=== PATIENT | female | born 1945 | race Caucasian/White ===

== ENCOUNTER 2017-04-13 11:35 | Inpatient (IN) | payer OTHER ==
[~2017-04-13] VITALS: Ht 157.5 cm; Wt 50.0 kg
--- NOTE | 2017-04-13 12:00 | ERD ---
ER Documentation Chief Complaint Chief Complaint BIB FOR EVAL OF LOW HG. HPI This is a 71-year-old female with a past medical history of chronic respiratory failure status post trach and PEG, known risk for aspiration pneumonia, paroxysmal atrial fibrillation who is presenting with concerns of anemia. The patient reportedly had blood work drawn this morning and had a hemoglobin of 6.6. The patient had no leukocytosis. The patient's platelet count was mildly elevated at 473. The patient's BNP did not show any emergent abnormalities. The patient does have a metabolic alkalosis that is likely associated with respiratory acidosis from her chronic respiratory failure. The patient did have blood cultures sent recently that showed no growth over the last several days. The patient does have a recent diagnosis of a UTI with a urinalysis from April 11 that showed trace leukocyte esterase, 11-20 WBCs, though there are no nitrites or bacteria present. Urine culture is currently in progress. ROS All systems reviewed and are negative except as per history of present illness. Medications Home Meds Reported Medications Ipratropium-Albuterol (Ipratropium-Albuterol) 0.5-3 Mg/3 Ml Ampul.neb, 3 ML INHALATION Q6 Y for SHORTNESS OF BREATH, #30 VIAL 04/13/17 Lactobacillus Acidophilus* (Lactinex*) 1 Tab Chew, 1 TAB GTB TID, TAB 04/13/17 Levothyroxine Sodium* (Levoxyl*) 100 Mcg Tablet, 100 MCG GTB BEFORE BREAKFAST, # 30 TAB 04/13/17 Losartan Potassium* (Losartan Potassium*) 50 Mg Tablet, 50 MG GTB DAILY, TAB HOLD IF SBP < 110 OR HR < 60 04/13/17 Multivitamins* (Theragran*) 1 Tab Tab, 1 TAB GTB DAILY, TAB 04/13/17 Pantoprazole* (Protonix*) 40 Mg Tablet.dr, 40 MG GTB BID, TAB 04/13/17 Quetiapine Fumarate* (Quetiapine Fumarate*) 25 Mg Tablet, 25 MG GTB HS, TAB 04/13/17 Sennosides* (Senna Lax*) 8.6 Mg Tablet, 2 TAB GTB QHS, TAB 04/13/17 Ondansetron (Zofran Odt) 4 Mg Tab.rapdis, 4 MG PO Q6 Y for NAUSEA AND/OR VOMITING 04/13/17 Furosemide* (Lasix* Liq) 40 Mg/4 Ml Solution, 20 MG IV* DAILY, #60 ML HOLD IF SBP<110 OR HR <60 USE WHILE ON IV ATB THEN CHANGE TO 40MG VIA G-TUBE 04/13/17 Sodium Phosphate,Bacon-Dibasic (Enema Ready To Use) 133 Ml Enema, 133 ML RC EVERY 72 HOURS Y for CONSTIPATION, ENEMA 04/13/17 Ferrous Sulfate (Ferrous Sulfate) 220 Mg/5 Ml Solution, 220 MG PEGTUBE BID 04/13/17 Bisacodyl (Dulcolax) 10 Mg Supp.rect, 10 MG RC EVERY 48 HOURS Y for CONSTIPATION , SUPP.RECT 04/13/17 Carvedilol* (Carvedilol*) 6.25 Mg Tablet, 6.25 MG GTB BID, #60 TAB HOLD FOR SBP <110 OR HR <60 04/13/17 Atorvastatin* (Atorvastatin*) 40 Mg Tablet, 40 MG GTB QHS, #30 TAB 04/13/17 Albuterol Sulfate* (Albuterol Sulfate* Neb) 0.083%-3 Ml Neb, 1.25 MG NEB Q6 Y for WHEEZING AND SOB, #30 VIAL VIA TRACH 04/13/17 Alprazolam* (Alprazolam*) 0.5 Mg Tablet, 0.5 MG GTB Q8H Y for ANXIETY, TAB 04/13/17 Amiodarone Hcl* (Amiodarone Hcl*) 200 Mg Tablet, 200 MG GTB DAILY, #30 TAB 04/13/17 Aspirin (Low Dose Aspirin) 81 Mg Tablet.dr, 81 MG GTB DAILY, #30 TAB 04/13/17 Allergies Allergies: Coded Allergies: No Known Allergy (Unverified , 04/13/17) PMhx/Soc History of Surgery: Yes (Trach and PEG, hiatal hernia surgery) Anesthesia Reaction: No Hx Neurological Disorder: No Hx Respiratory Disorders: Yes (Chronic hypoxic respiratory failure) Hx Cardiac Disorders: Yes (Paroxysmal atrial fibrillation) Hx Psychiatric Problems: Yes (Delirium) Hx Miscellaneous Medical Probl: No Hx Alcohol Use: No Hx Substance Use: No Hx Tobacco Use: No FmHx Family History: No coronary disease, No diabetes Physical Exam Vitals Vital Signs Date Time Temp Pulse Resp B/P Pulse Ox O2 Delivery O2 Flow Rate FiO2 04/13/17 14:14 99 3.0 04/13/17 13:53 75 20 99 T Tube 3.0 04/13/17 11:48 98.1 84 16 169/98 100 Physical Exam Const: No apparent distress, well-developed, well-nourished Head: Normocephalic, Atraumatic Eyes: Normal Conjunctiva. Extraocular movements intact. Pupils equal, round and reactive to light ENT: Normal External Ears, Nose and Mouth. Neck: Full range of motion. No meningismus. Trach placed without erythema or induration or purulence or bleeding around the trach site. Resp: Diffuse wheezes. No rales or rhonchi Cardio: Regular rate and rhythm. No murmurs, rubs or gallops Abd: Soft, non tender, non distended. Normal bowel sounds. PEG tube placed without erythema or induration or fluctuance or purulence around the site Skin: No petechiae or rashes Back: No midline tenderness. No CVA tenderness Ext: No cyanosis, or edema. Mild pallor Neur: Awake and alert. Cranial nerves intact. No facial droop. Normal strength, sensation and coordination. Psych: Normal Mood and Affect Result Diagram: 04/13/17 1230 04/13/17 1230 Results 24 hrs Laboratory Tests Test 04/13/17 12:30 White Blood Count 14.610^3/ul Red Blood Count 2.8010^6/ul Hemoglobin 7.9g/dl Hematocrit 26.2% Mean Corpuscular Volume 93.6fl Mean Corpuscular Hemoglobin 28.2pg Mean Corpuscular Hemoglobin Concent 30.2g/dl Red Cell Distribution Width 17.1% Platelet Count 75039^3/UL Mean Platelet Volume 10.2fl Neutrophils % 83.0% Lymphocytes % 5.2% Monocytes % 9.5% Eosinophils % 1.2% Basophils % 0.1% Nucleated Red Blood Cells % 0.0/100WBC Neutrophils # 12.110^3/ul Lymphocytes # 0.810^3/ul Monocytes # 1.410^3/ul Eosinophils # 0.210^3/ul Basophils # 0.010^3/ul Nucleated Red Blood Cells # 0.010^3/ul Sodium Level 142mmol/L Potassium Level 4.8mmol/L Chloride Level 99mmol/L Carbon Dioxide Level 36mmol/L Anion Gap 12 Blood Urea Nitrogen 22mg/dl Creatinine 0.72mg/dl Glucose Level 105mg/dl Calcium Level 8.8mg/dl Total Bilirubin 0.3mg/dl Direct Bilirubin 0.00mg/dl Indirect Bilirubin 0.3mg/dl Aspartate Amino Transf (AST/SGOT) 24IU/L Alanine Aminotransferase (ALT/SGPT) 40IU/L Alkaline Phosphatase 134IU/L Total Protein 6.9g/dl Albumin 3.2g/dl Globulin 3.70g/dl Albumin/Globulin Ratio 0.86 Current Medications Medications (Trade) Dose Ordered Sig/Wily Route PRN Reason Start Time Stop Time Status Last Admin Dose Admin Ondansetron HCl (Zofran Inj) 4 mg ER BRIDGE PRN IV NAUSEA AND/OR VOMITING 04/13/17 13:30 04/13/17 13:30 DC Acetaminophen (Tylenol Tab) 650 mg ER BRIDGE PRN PO MILD PAIN/FEVER 04/13/17 13:30 04/13/17 13:30 DC Albuterol (Proventil 0.083% (Neb)) 7.5 mg ONCE STAT INH 04/13/17 13:33 04/13/17 13:35 DC 04/13/17 13:46 Ipratropium Success (Atrovent 0.02% (Neb)) 1.5 mg ONCE STAT INH 04/13/17 13:33 04/13/17 13:35 DC 04/13/17 13:46 Methylprednisolone Sodium Succinate 125 mg 125 mg ONCE STAT IV 04/13/17 13:33 04/13/17 13:35 DC 04/13/17 14:32 Azithromycin 250 ml @ 250 mls/hr ONCE ONCE IVPB 04/13/17 15:00 04/13/17 15:59 DC 04/13/17 15:02 Ampicillin Sodium/ Sulbactam Sodium (Unasyn 3gm/NS (Pmx)) 100 ml @ 100 mls/hr ONCE ONCE IVPB 04/13/17 15:00 04/13/17 15:59 DC Ondansetron HCl (Zofran Inj) 4 mg ER BRIDGE PRN IV NAUSEA AND/OR VOMITING 04/13/17 15:00 04/14/17 14:59 Acetaminophen (Tylenol Tab) 650 mg ER BRIDGE PRN PO MILD PAIN/FEVER 04/13/17 15:00 04/13/17 15:29 DC Alprazolam (Xanax) 0.5 mg Q8H PRN GTB ANXIETY 04/13/17 15:30 Amiodarone HCl (Cordarone) 200 mg DAILY GTB 04/14/17 09:00 Aspirin (Halfprin) 81 mg DAILY PO 04/14/17 09:00 Atorvastatin Calcium (Lipitor) 40 mg QHS GTB 04/13/17 21:00 Carvedilol (Coreg) 6.25 mg BID GTB 04/13/17 21:00 Furosemide (Lasix) 20 mg DAILY GTB 04/14/17 09:00 Albuterol/ Ipratropium (Duoneb) 3 ml Q4H WHILE AWAKE INH 04/13/17 17:00 Levothyroxine Sodium (Synthroid) 100 mcg BEFORE BREAKFAST GTB 04/14/17 07:00 Losartan Potassium (Cozaar) 50 mg DAILY GTB 04/14/17 09:00 Multivitamins Therapeutic (Theragran) 1 tab DAILY GTB 04/14/17 09:00 Pantoprazole (Protonix Tab) 40 mg 06,18 PO 04/13/17 18:00 Quetiapine Fumarate (Seroquel) 25 mg HS GTB 04/13/17 21:00 Ferrous Sulfate (Feosol Liquid Cup) 220 mg BID GTB 04/13/17 21:00 Lactobacillus Acidophilus/ Rhamnosus (Culturelle) 1 cap TID PO 04/13/17 21:00 Albuterol (Proventil 0.083% (Neb)) 2.5 mg Q4H RESP THERAPY PRN HHN SHORTNESS OF BREATH 04/13/17 15:30 Ondansetron HCl (Zofran Inj) 4 mg Q4H PRN IV NAUSEA AND/OR VOMITING 04/13/17 15:30 IV Flush (NS 3 ml) 3 ml PER PROTOCOL IV 04/13/17 15:30 Acetaminophen 650 mg 650 mg Q6H PRN PO PAIN LEVEL 1-3 OR FEVER 04/13/17 15:30 Ampicillin Sodium/ Sulbactam Sodium 50 ml @ 100 mls/hr Q6 IVPB 04/13/17 18:00 Azithromycin (Zithromax 500mg/ NS (Pmx)) 250 ml @ 250 mls/hr Q24H IVPB 04/14/17 15:30 Methylprednisolone Sodium Succinate 40 mg 40 mg Q8 IV 04/13/17 22:00 Sodium Chloride 1,000 ml @ 75 mls/hr [id number] IV 04/13/17 16:00 04/14/17 16:00 Sodium Chloride (NS) 100 ml @ ud STK-MED ONCE .ROUTE 04/13/17 15:57 04/13/17 15:58 DC Iodixanol (Visipaque Locm) 100 ml STK-MED ONCE .ROUTE 04/13/17 15:57 04/13/17 15:58 DC Procedures/MDM MDM The patient's presentation warrants further investigation. The patient has findings it is consistent with a COPD exacerbation. It is unclear if the patient had this issue prior to her complicated surgical history that ultimately led to a tracheostomy. However, am concerned about reactive airway disease at this time with the possibility of an infectious etiology given her significant congestion. This will be further evaluated. Type and screen and basic blood work will also be sent off. There are concerns of anemia especially given the lab results at the nursing facility. I will not transfuse immediately and instead await our results. LABS The patient's blood work was obtained and reviewed. The patient's CBC shows leukocytosis and left shift. The patient is afebrile, but given the possibility of pneumonia, I am concerned of a infection.. The patient is anemic today, but it is at 7.9. I do not intend to transfuse at this time. The patient is fecal occult negative. This may be trended in the hospital. The patient's platelet count is elevated, which is likely reactive. The patient 's CMP shows no signs of metabolic or electrolyte emergencies. The patient does have an elevated CO2 that is indicative of metabolic alkalosis secondary to her chronic poor respiratory status. The patient has unremarkable renal and hepatic function testing. IMAGING CXR 1. Cardiomegaly with bilateral lower lung opacities, representing atelectasis versus pneumonia. Small bilateral pleural effusions. 2. Tracheostomy tube. 3. Right-sided PICC in appropriate position with tip at the cavoatrial junction. 4. Hiatal hernia. Electronically viewed and signed by Karlo Obando Physician on 04/13/2017 14:42 TREATMENT/DISPOSITION The patient requires admission for possible COPD exacerbation. I do see concerning findings for pneumonia as well. The patient be started on Unasyn given her history of aspiration as well as azithromycin. The patient was also started on nebulized albuterol and ipratropium. She is given Solu-Medrol as well. The patient will require frequent suctioning. The respiratory therapist was made aware. At this time, I feel that the patient requires admission for further evaluation and management. The patient will be admitted to panel in accordance with the patient's insurance. The patient was accepted by Dr. Vaca at 2:37 PM on April 13, 2017. The patient's blood pressure was elevated at greater than 120/80 while in the emergency department. The patient was otherwise stable with no evidence of hypertensive urgency or emergency or end organ damage. The patient does not require admission for blood pressure control. I have discussed with the patient the risks of hypertension. I have advised the patient to follow up with the primary care physician for outpatient monitoring and treatment for hypertension in 2-3 days. I have instructed the patient to return to the ER for any new or worsening symptoms including chest pain, shortness of breath, headache, blurred vision, confusion, nausea, vomiting or LOC. Disclaimer: Inadvertent spelling and grammatical errors are likely due to EHR/ dictation software use and do not reflect on the overall quality of patient care. Note that the electronic time recorded on this note does not necessarily reflect the actual time of the patient encounter. Departure Diagnosis: Primary Impression: Anemia Anemia type: unspecified type Qualified Code: D64.9 - Anemia, unspecified type Condition: DEANA Rosa MD Apr 13, 2017 12:00
[2017-04-13] MEDS ORDERED: AMIO200T2 GTB (12:15)
[2017-04-13] MEDS ORDERED: ASPI-664 GTB (12:15)
[2017-04-13] MEDS ORDERED: ALPR0.5T6 GTB (12:16)
[2017-04-13] MEDS ORDERED: ALBU2.5V3 NEB (12:17)
[2017-04-13] MEDS ORDERED: ATOR40TA68 GTB (12:18)
[2017-04-13] MEDS ORDERED: CARV6.2579 GTB (12:19)
[2017-04-13] MEDS ORDERED: BISA10SU55 RC (12:20)
[2017-04-13] MEDS ORDERED: NA P133E39 RC (12:21)
[2017-04-13] MEDS ORDERED: FERR220S2 PEGTUBE (12:21)
[2017-04-13] MEDS ORDERED: FURO40SO4 IV* (12:24)
[2017-04-13] MEDS ORDERED: ONDA4TAB11 PO (12:26)
[2017-04-13] MEDS ORDERED: SENN-53 GTB (12:27)
[2017-04-13] MEDS ORDERED: QUET25TA33 GTB (12:27)
[2017-04-13] MEDS ORDERED: PANT40TA3 GTB (12:28)
[2017-04-13] MEDS ORDERED: MULTI GTB (12:28)
[2017-04-13] MEDS ORDERED: LOSA50TA6 GTB (12:29)
[2017-04-13] MEDS ORDERED: LEVO100T82 GTB (12:29)
[2017-04-13] MEDS ORDERED: LACTINEX GTB (12:30)
[2017-04-13] MEDS ORDERED: IPRA3AMP INHALATION (12:34)
[2017-04-13 12:43] LABS: BASOPHILS % 0.1 % (0.0-2.0); EOSINOPHILS # 0.2 10^3/ul (0.0-0.5); EOSINOPHILS % 1.2 % (0.0-7.0); HEMATOCRIT 26.2 % (37.0-47.0); HEMOGLOBIN 7.9 g/dl (12.0-16.0); LYMPHOCYTES # 0.8 10^3/ul (0.8-2.9); LYMPHOCYTES % 5.2 % (15.0-51.0); MEAN CORPUSCULAR HEMOGLOBIN 28.2 pg (29.0-33.0); MEAN CORPUSCULAR HGB CONC 30.2 g/dl (32.0-37.0); MEAN CORPUSCULAR VOLUME 93.6 fl (82.0-101.0); MEAN PLATELET VOLUME 10.2 fl (7.4-10.4); MONOCYTE # 1.4 10^3/ul (0.3-0.9); MONOCYTES % 9.5 % (0.0-11.0); NEUTROPHIL # 12.1 10^3/ul (1.6-7.5); PLATELET COUNT 563 10^3/UL (140-415); RED CELL DISTRIBUTION WIDTH 17.1 % (11.5-14.5); WHITE BLOOD COUNT 14.6 10^3/ul (4.8-10.8)
[2017-04-13 13:00] LABS: ALBUMIN 3.2 g/dl (3.3-4.9); ALBUMIN/GLOBULIN RATIO 0.86; BILIRUBIN,INDIRECT 0.3 mg/dl (0-1.1); BILIRUBIN,TOTAL 0.3 mg/dl (0.2-1.3); CALCIUM 8.8 mg/dl (8.4-10.2); CREATININE 0.72 mg/dl (0.44-1.00); POTASSIUM 4.8 mmol/L (3.5-5.1); TOTAL PROTEIN 6.9 g/dl (6.1-8.1)
[2017-04-13] MEDS ORDERED: ACETAMINOPHEN 325 MG TAB PO PRN ×2 (13:30→15:00)
[2017-04-13] MEDS ORDERED: ONDANSETRON 4 MG INJ IV PRN ×3 (13:30→15:30)
[2017-04-13] MEDS ORDERED: IPRATROPIUM (NEB) 0.5 MG/2.5 ML AMP INH STA (13:33)
[2017-04-13] MEDS ORDERED: ALBUTEROL 0.083% (NEB) 2.5 MG/3 ML AMP INH STA (13:33)
[2017-04-13] MEDS ORDERED: METHYLPREDNISOLONE 125 MG INJ IV STA (13:33)
--- NOTE | 2017-04-13 14:42 | RADRPT ---
PROCEDURE: XR Chest. CLINICAL INDICATION: Wheezing, shortness of breath. TECHNIQUE: Single frontal view of the chest was obtained. COMPARISON: None FINDINGS: There is a tracheostomy tube. There is a right-sided PICC with tip at the cavoatrial junction. The cardiomediastinal silhouette demonstrates enlargement of the cardiac silhouette. There are bilateral lower lung opacities with the small bilateral pleural effusions. No definite pneumothorax. No acute osseous abnormality. There is a hiatal hernia. Surgical clips projecting over the right lat eral hemidiaphragm. IMPRESSION: 1. Cardiomegaly with bilateral lower lung opacities, representing atelectasis versus pneumonia. Smal l bilateral pleural effusions. 2. Tracheostomy tube. 3. Right-sided PICC in appropriate position with tip at the cavoatrial junction. 4. Hiatal hernia. RPTAT: [facility] Karlo Obando Physician Date Time Electronically viewed and signed by Karlo Obando Physician on 04/13/2017 14:42 PH/
[2017-04-13] MEDS ORDERED: AMPICILLIN/SULB 3 GM/NS (PMX) 100 ML IVPB ONE (15:00)
[2017-04-13] MEDS ORDERED: AZITHROMYCIN 500MG/NS (PMX) 250 ML IVPB ONE (15:00)
[2017-04-13] MEDS ORDERED: NACL 0.9% 3 ML SYG IV SCH (15:30)
--- NOTE | 2017-04-13 15:56 | HP ---
Date/Time of Note Date/Time of Note DATE: 04/13/17 TIME: 15:23 Assessment/Plan VTE Prophylaxis VTE Prophylaxis Intervention: SCD's Assessment/Plan Assessment/Plan 1. Acute respiratory distress secondary to pneumonia vs URI - Patient has been experiencing increase in sputum production over the past 2-3 days - CXR shows cardiomegaly with opacity at lung bases, atelectasis vs pneumonia - Will order CT scan of chest to further evaluate - Started on Unasyn and Azithromycin to treat for CAP vs aspiration pneumonia - Bronchodilators and IV steroids - frequent suctioning required as well - Pulmonology consultation placed 2. Leukocytosis secondary to #1 - antibiotics on board and will continue to monitor 3. Anemia secondary to chronic disease vs iron deficiency - will check iron studies - FOBT negative 4. Dehydration - patient appears slightly dehydrated and has elevated BUN - will gently hydrate for next 24 hours and reassess volume status 5 Hypertension - continue home medications 6. hypothyroidism - Continue on home levothyroxine 7. Chronic Trach/PEG - placed consult for evaluation for [facility] for trach capping trial once stable for discharge 8. UTI? - no urinary symptoms at this time - UA pending 9. Thrombocytosis - most likely reactive 10. Cardiomegaly on CXR - Will order ECHO to further assess 11. GI ppx - PPI 12. DVT - SCDs 13. Code Status - Full 14, Diet - cardiac 15. Disposition - Admit to telemetry HPI/ROS Admit Date/Time Admit Date/Time 04/13/17 Hx of Present Illness 71 yo F with PMH HTN, HLD, hypothyrodism, anemia, and chronic Trach/PEG for the past 6 months following complications after routine diaphragmatic hernia repair was sent after found to have a hgb of 6.6 this am, Patient lives at home with and history obtained from at bedside as well as patient. Patient has been experiencing cough with increase sputum production that has been blood tinged at times. Has associated wheezing as well but denies any fevers, chills, nausea, vomiting, or sick contact. Patient had labs performed this am and hgb was 6.6 which was why patient was initially sent to the ED. Repeat H/H in the ED resulted hgb of 7.8 and FOBT was negative. She does admit to experiencing fatigue but besides blood tinged sputum, no other episodes of nelson bleeding. Per , patient has anemia but unsure what her baseline is. Patient was noted to have recently been treated for UTI and patient denies any urinary symptoms at this time Per , 6 months ago patient went in for a routine surgery to repair a diaphragmatic hernia and due to chronic respiratory failure trach/peg placed. Patient was supposed to go to [facility] this week for trach cap trial. ROS Constitutional: fatigue, No chills, No diaphoresis, No febrile, No nausea Eyes: no complaints ENT: congestion Respiratory: cough, shortness of breath, sputum, wheezing Cardiovascular: No chest pain, No edema, No lightheadedness, No palpitations Gastrointestinal: diarrhea, No constipation, No nausea, No pain, No vomiting Genitourinary: No dysuria, No flank pain, No hematuria Musculoskeletal: no complaints Skin: No erythema, No pruritis, No rash Neurologic: no complaints Endocrine: no complaints Lymphatic: no complaints Psychological: nl mood/affect Immunologic: no complaints PMH/Family/Social Past Medical History Medical History: diabetes, hypertension, hypothyroid, other (anemia) Past Surgical History Past Surgical Hx: cholecystectomy, other (Trach, peg, diaphragmatic hernia repair) Family History Significant Family History: no pertinent family hx Social History Alcohol Use: none Smoking Status: Never smoker Drug Use: none Exam/Review of Systems Vital Signs Vitals Vital Signs Date Time Temp Pulse Resp B/P Pulse Ox O2 Delivery O2 Flow Rate FiO2 04/13/17 14:14 99 3.0 04/13/17 13:53 75 20 T Tube 04/13/17 11:48 98.1 169/98 Exam Constitutional: alert, distress, oriented Psych: nl mood/affect Head: atraumatic, normocephalic Eyes: EOMI, PERRL (respiratory ), nl sclera ENMT: mucosa pink and moist Neck: non-tender, supple Respiratory: crackles/rales, diminished breath sounds, No wheezing Cardiovascular: regular rate and rhythm, No edema, No murmurs/extra sounds Gastrointestinal: bowel sounds, nl liver, spleen, soft, No distended, No rebound or guarding, No tender Genitourinary - Female: No CVA tenderness Musculoskeletal: nl extremities to inspection Extremities: normal pulses, No cyanosis, No edema Neurological: PENSION AGENT II-XII intact, nl mental status, No focal weakness Skin: nl turgor, rash or lesions Lymph: nl lymph nodes Labs Result Diagram: 04/13/17 1230 04/13/17 1230 Medications Medications home medications reviewed Current Medications Azithromycin 250 ml @ 250 mls/hr ONCE ONCE IVPB ; Start 04/13/17 at 15:00; Stop 04/13/17 at 15:59 Ampicillin Sodium/ Sulbactam Sodium (Unasyn 3gm/NS (Pmx)) 100 ml @ 100 mls/hr ONCE ONCE IVPB ; Start 04/13/17 at 15:00; Stop 04/13/17 at 15:59 Procedures Procedures PROCEDURE: XR Chest. CLINICAL INDICATION: Wheezing, shortness of breath. TECHNIQUE: Single frontal view of the chest was obtained. COMPARISON: None FINDINGS: There is a tracheostomy tube. There is a right-sided PICC with tip at the cavoatrial junction. The cardiomediastinal silhouette demonstrates enlargement of the cardiac silhouette. There are bilateral lower lung opacities with the small bilateral pleural effusions. No definite pneumothorax. No acute osseous abnormality. There is a hiatal hernia. Surgical clips projecting over the right lateral hemidiaphragm. IMPRESSION: 1. Cardiomegaly with bilateral lower lung opacities, representing atelectasis versus pneumonia. Small bilateral pleural effusions. 2. Tracheostomy tube. 3. Right-sided PICC in appropriate position with tip at the cavoatrial junction. 4. Hiatal hernia. YAA WHITNEY MD Apr 13, 2017 15:38
[2017-04-13] MEDS ORDERED: IODIXANOL LOCM 100 ML BTL ONE (15:57)
[2017-04-13] MEDS ORDERED: SOD CHLORIDE 0.9% 100 ML ONE (15:57)
[2017-04-13 16:30] VITALS: TEMP 98.3
[2017-04-13] MEDS: ALBUTEROL/IPRATROPIUM (NEB) 3 ML AMP INH SCH ×2 (17:00→20:00)
[2017-04-13 17:04] LABS: IRON 27 ug/dl (35-150)
[2017-04-13 17:13] LABS: TOTAL IRON BINDING CAPACITY 192 ug/dl (241-421)
--- NOTE | 2017-04-13 17:14 | RADRPT ---
PROCEDURE: CT Chest with contrast. CLINICAL INDICATION: Abnormal chest x-ray. TECHNIQUE: CT scan of the chest with contrast was performed following the uncomplicated intravenou s administration of 100 cc of Visipaque 320. Coronal and sagittal reformatted images were obtained from the axial source images. Images were reviewed on a high-resolution PACS workstation. DICOM imag es are available. CTDIvol (mGy): 6.68; Total Exam DLP (mGy-cm): 208.61. One or more of the following dose reduction techniques were utilized: - Automated exposure control. - Adjustment of the mA and/or kV according to patient size. - Use of iterative reconstruction technique. COMPARISON: Chest x-ray 04/13/2017. FINDINGS: Lungs: Low lung volumes are observed. Scattered subsegmental consolidation is seen within the bilate ral lower lobes and is favorable for atelectasis. There is a small, mildly loculated, right pleural effusion. There is a trace left pleural effusion. A tracheostomy tube is in place within the airway. Mediastinum: Scattered small mediastinal lymph nodes are present. Cardiovascular: The heart is mildly enlarged. Trace pericardial fluid is present. A right upper extr emity PICC terminates at the SVC/right atrial junction. Lymph nodes: No lymphadenopathy. Musculoskeletal: Multilevel degenerative changes are seen throughout the thoracic spine. Upper abdomen: There is a large hiatal hernia containing a large portion of the stomach and a portio n of the distal transverse colon. Scattered small cysts are seen throughout the liver. Additional comments: Healing nondisplaced fractures of the left anterior second, fourth, 6 and seven th ribs are present. There is a nondisplaced fracture of the right anterolateral eighth rib. IMPRESSION: Low lung volumes with scattered subsegmental atelectasis throughout the lung bases. Small loculated right and trace left pleural effusions. Large hiatal hernia containing a large portion of the stomach and a portion of the distal transverse colon. Cardiomegaly. RPTAT: QQ .Mihaela Avila MD, Date Time Electronically viewed and signed by .iMhaela Avila MD, on 04/13/2017 17:14 .T/
[2017-04-13] MEDS: SOD CHLORIDE 0.9% 1,000 ML IV SCH (17:25)
[2017-04-13 17:33] VITALS: PULSE 79
[2017-04-13] MEDS: PANTOPRAZOLE (EC) 40 MG TAB PO SCH (17:39)
[2017-04-13] MEDS: AMPICILLIN/SULB 1.5GM/NS (PMX) 50 ML IVPB SCH (18:00)
[2017-04-13 18:45] VITALS: Ht 157.5 cm; Wt 50.0 kg
[2017-04-13 19:43] VITALS: BP 135/69; RESP 20
[2017-04-13 20:04] VITALS: PULSE 74
[2017-04-13] MEDS: FERROUS SULFATE 60 MG/ML 5ML CUP GTB SCH (20:14)
[2017-04-13] MEDS: ATORVASTATIN 40 MG TAB GTB SCH (20:15)
[2017-04-13] MEDS: METHYLPREDNISOLONE 40 MG INJ IV SCH (20:15)
[2017-04-13] MEDS: QUETIAPINE 25 MG TAB GTB SCH (20:15)
[2017-04-13] MEDS: LACTOBACILLUS RHAMNOSUS CAP PO SCH (22:36)
[2017-04-13 23:59] VITALS: BP 134/64; RESP 18
[2017-04-14] VITALS (11 sets, daily range): BP systolic 126–143; BP diastolic 61–83; PULSE 64–82; RESP 17–19
[2017-04-14] MEDS: PANTOPRAZOLE (EC) 40 MG TAB PO SCH (06:00)
[2017-04-14] MEDS: LEVOTHYROXINE 100 MCG TAB GTB SCH (06:56)
[2017-04-14] MEDS: AMPICILLIN/SULB 1.5GM/NS (PMX) 50 ML IVPB SCH ×3 (06:56→12:00)
[2017-04-14] MEDS: METHYLPREDNISOLONE 40 MG INJ IV SCH ×3 (06:56→23:00)
[2017-04-14 07:31] LABS: ABNORMAL IP MESSAGE 1; HEMATOCRIT 22.3 % (37.0-47.0); MEAN CORPUSCULAR HEMOGLOBIN 28.5 pg (29.0-33.0); MEAN CORPUSCULAR HGB CONC 30.9 g/dl (32.0-37.0); MEAN CORPUSCULAR VOLUME 92.1 fl (82.0-101.0); MEAN PLATELET VOLUME 10.7 fl (7.4-10.4); PLATELET COUNT 457 10^3/UL (140-415); RED BLOOD COUNT 2.42 10^6/ul (4.20-5.40); WHITE BLOOD COUNT 7.4 10^3/ul (4.8-10.8)
[2017-04-14 07:36] LABS: POSITIVE DIFF @See below
[2017-04-14 07:38] LABS: HEMOGLOBIN 6.9 g/dl (12.0-16.0)
[2017-04-14] MEDS: SOD CHLORIDE 0.9% 1,000 ML IV SCH (07:50)
[2017-04-14 07:52] LABS: ALBUMIN 2.4 g/dl (3.3-4.9); CALCIUM 8.4 mg/dl (8.4-10.2); CREATININE 0.65 mg/dl (0.44-1.00); PHOSPHORUS 3.5 mg/dl (2.5-4.9); POTASSIUM 4.2 mmol/L (3.5-5.1)
[2017-04-14] MEDS ORDERED: FUROSEMIDE 40 MG/4 ML CUP GTB SCH (09:00)
[2017-04-14] MEDS: ALBUTEROL/IPRATROPIUM (NEB) 3 ML AMP INH SCH ×4 (09:00→20:19)
[2017-04-14] MEDS: LOSARTAN 50 MG TAB GTB SCH (09:54)
[2017-04-14] MEDS: AMIODARONE 200 MG TAB GTB SCH (09:58)
[2017-04-14] MEDS: ASPIRIN (EC) 81 MG TAB PO SCH (10:00)
[2017-04-14 10:01] LABS: ANISOCYTOSIS 2+ (0-0); GIANT THROMBO% (M) 1 % (0-0); HYPOCHROMASIA 1+ (0-0); MICROCYTOSIS 1+ (0-0); MONOCYTES % (M) 3 % (0-11); PLATELET ESTIMATE INCREASED; POIKILOCYTOSIS 1+ (0-0); POLYCHROMASIA 2+ (0-0)
[2017-04-14] MEDS: MULTIVITAMINS THERAPEUTIC TAB GTB SCH (10:01)
[2017-04-14] MEDS: FERROUS SULFATE 60 MG/ML 5ML CUP GTB SCH ×2 (10:02→21:00)
[2017-04-14] MEDS: LACTOBACILLUS RHAMNOSUS CAP PO SCH ×3 (10:05→21:00)
--- NOTE | 2017-04-14 10:21 | CONS ---
Date/Time of Note Date/Time of Note DATE: 04/14/17 TIME: 10:21 Consultation Date/Type/Reason Admit Date/Time 04/13/17 Date of Consultation: Apr 14, 2017 Type of Consultation: Pulmonary Hx of Present Illness Consultation dictated #[id number]. Continue current treatment. Past Medical History Medical History: diabetes, hypertension, hypothyroid, other (anemia) Past Surgical History Past Surgical Hx: cholecystectomy, other (Trach, peg, diaphragmatic hernia repair) Social History Alcohol Use: none Smoking Status: Never smoker Drug Use: none Exam/Review of Systems Vital Signs Vitals Vital Signs Date Time Temp Pulse Resp B/P Pulse Ox O2 Delivery O2 Flow Rate FiO2 04/14/17 08:05 97.9 75 19 135/61 98 04/14/17 05:30 Aerosol 5.0 28 T Tube Intake and Output 04/13/17 04/13/17 04/14/17 15:00 23:00 07:00 Intake Total 100 ml 100 ml Balance 100 ml 100 ml Results Result Diagram: 04/14/17 0657 04/14/17 0657 Results 24 hrs Laboratory Tests Test 04/13/17 12:30 04/14/17 06:57 White Blood Count 14.6 H 7.4 # Red Blood Count 2.80 L 2.42 L Hemoglobin 7.9 L 6.9 *L Hematocrit 26.2 L 22.3 L Mean Corpuscular Volume 93.6 92.1 Mean Corpuscular Hemoglobin 28.2 L 28.5 L Mean Corpuscular Hemoglobin Concent 30.2 L 30.9 L Red Cell Distribution Width 17.1 H 17.0 H Platelet Count 563 H 457 H Mean Platelet Volume 10.2 10.7 H Neutrophils % 83.0 H Lymphocytes % 5.2 L Monocytes % 9.5 Eosinophils % 1.2 Basophils % 0.1 Nucleated Red Blood Cells % 0.0 0.0 Neutrophils # 12.1 H Lymphocytes # 0.8 Monocytes # 1.4 H Eosinophils # 0.2 Basophils # 0.0 Nucleated Red Blood Cells # 0.0 Sodium Level 142 141 Potassium Level 4.8 4.2 Chloride Level 99 103 Carbon Dioxide Level 36 H 33 H Anion Gap 12 9 Blood Urea Nitrogen 22 H 24 H Creatinine 0.72 0.65 Glucose Level 105 119 Calcium Level 8.8 8.4 Iron Level 27 L Total Iron Binding Capacity 192 L Percent Iron Saturation 14 L Total Bilirubin 0.3 Direct Bilirubin 0.00 Indirect Bilirubin 0.3 Aspartate Amino Transf (AST/SGOT) 24 Alanine Aminotransferase (ALT/SGPT) 40 Alkaline Phosphatase 134 H B-Type Natriuretic Peptide 23895 H Total Protein 6.9 Albumin 3.2 L 2.4 L Globulin 3.70 H Albumin/Globulin Ratio 0.86 Segmented Neutrophils % (Manual) 90 H Lymphocytes % (Manual) 7 L Monocytes % (Manual) 3 Absolute Lymphocytes (Manual) 0.5 L Absolute Monocytes (Manual) 0.2 L Platelet Estimate INCREASED Giant Platelets 1 H Polychromasia 2+ Hypochromasia 1+ Poikilocytosis 1+ Anisocytosis 2+ Microcytosis 1+ Phosphorus Level 3.5 Magnesium Level 2.0 Medications Medications Current Medications Alprazolam (Xanax) 0.5 mg Q8H PRN GTB ANXIETY; Start 04/13/17 at 15:30 Amiodarone HCl (Cordarone) 200 mg DAILY GTB Last administered on 04/14/17 09: 58; Admin Dose 200 MG; Start 04/14/17 at 09:00 Aspirin (Halfprin) 81 mg DAILY PO Last administered on 04/14/17 10:00; Admin Dose 81 MG; Start 04/14/17 at 09:00 Atorvastatin Calcium (Lipitor) 40 mg QHS GTB Last administered on 04/13/17 20: 15; Admin Dose 40 MG; Start 04/13/17 at 21:00 Carvedilol (Coreg) 6.25 mg BID GTB Last administered on 04/14/17 09:57; Admin Dose 6.25 MG; Start 04/13/17 at 21:00 Furosemide (Lasix) 20 mg DAILY GTB Last administered on 04/14/17 09:58; Admin Dose 20 MG; Start 04/14/17 at 09:00 Losartan Potassium (Cozaar) 50 mg DAILY GTB Last administered on 04/14/17 09: 54; Admin Dose 50 MG; Start 04/14/17 at 09:00 Multivitamins Therapeutic (Theragran) 1 tab DAILY GTB Last administered on 04/14 10:01; Admin Dose 1 TAB; Start 04/14/17 at 09:00 Pantoprazole (Protonix Tab) 40 mg 06,18 PO Last administered on 04/13/17 17:39 ; Admin Dose 40 MG; Start 04/13/17 at 18:00 Quetiapine Fumarate (Seroquel) 25 mg HS GTB Last administered on 04/13/17 20: 15; Admin Dose 25 MG; Start 04/13/17 at 21:00 Ferrous Sulfate (Feosol Liquid Cup) 220 mg BID GTB Last administered on 10:02; Admin Dose 220 MG; Start 04/13/17 at 21:00 Lactobacillus Acidophilus/ Rhamnosus (Culturelle) 1 cap TID PO Last administered on 04/14/17 10:05; Admin Dose 1 CAP; Start 04/13/17 at 21:00 Ondansetron HCl (Zofran Inj) 4 mg Q4H PRN IV NAUSEA AND/OR VOMITING; Start 04/13/17 at 15:30 Acetaminophen 650 mg 650 mg Q6H PRN PO PAIN LEVEL 1-3 OR FEVER; Start 04/13/17 at 15:30 Ampicillin Sodium/ Sulbactam Sodium 50 ml @ 100 mls/hr Q6 IVPB Last administered on 04/14/17 06:56; Admin Dose 100 MLS/HR; Start 04/13/17 at 18:00 Azithromycin (Zithromax 500mg/ NS (Pmx)) 250 ml @ 250 mls/hr Q24H IVPB ; Start 04/14/17 at 15:30 Methylprednisolone Sodium Succinate 40 mg 40 mg Q8 IV Last administered on 04/14 06:56; Admin Dose 40 MG; Start 04/13/17 at 22:00 Sodium Chloride (NS) 1,000 ml @ 75 mls/hr [id number] IV Last administered on 04/14 07:50; Admin Dose 75 MLS/HR; Start 04/13/17 at 16:00; Stop 04/14/17 at 16: 00 ALLISON DONOHUE Apr 14, 2017 10:21
[2017-04-14] MEDS: ALPRAZOLAM 0.5 MG TAB GTB PRN ×2 (11:15→15:57)
--- NOTE | 2017-04-14 12:31 | CONS ---
DATE OF ADMISSION: 04/13/2017 DATE OF CONSULTATION: 04/14/2017 PULMONARY CONSULTATION REFERRING PHYSICIAN: Hospitalist. REASON FOR REFERRAL: For evaluation of bilateral pneumonia. HISTORY OF PRESENT ILLNESS: Ms. Ochoa is a 71-year-old white lady who was admitted to the hospital yesterday with complaints of being short of breath for the last few days with production of sputum as well as mild hypoxemia. Upon evaluation, a chest x-ray was done which is showing bibasilar pneum onia. The patient also was found anemic with a hemoglobin of 6.6. CT scan chest also was done whic h is showing bibasilar infiltrative changes with the possibility of chronic component to it. By the time I saw the patient, the patient is feeling better. She is completely awake and alert. Accordi ng to her, shortness of breath is improving. Denies any fever, chills, chest pain, abdominal pain, nausea, vomiting. PAST MEDICAL HISTORY: 1. History of prior respiratory failure, status post tracheostomy and PEG tube placement. 2. History of anemia. 3. Diabetes. 4. Hypertension. 5. Hypothyroidism. 6. Status post cholecystectomy. 7. History of diaphragmatic hernia repair. CURRENT MEDICATIONS: 1. Unasyn 1.5 grams q.6 hours. 2. Zithromax 500 mg IV daily. 3. Acetaminophen on a p.r.n. basis 4. Albuterol on a p.r.n. basis. 5. Xanax on a p.r.n. basis. 6. Amiodarone 200 mg daily. 7. Aspirin 81 mg a day. 8. Lipitor 40 mg a day. 9. Coreg 6.25 mg b.i.d. 10. Feosol 220 mg b.i.d. 11. Lasix 20 mg daily. 12. Cozaar 50 mg daily. 13. Solu-Medrol 40 mg q.8 hours. 14. Protonix 40 mg daily. 15. Seroquel 25 mg daily. ALLERGIES: NONE. SOCIAL HISTORY: The patient has no history of any smoking, alcohol, or drug abuse. FAMILY HISTORY: Noncontributory. OCCUPATIONAL HISTORY: Noncontributory. REVIEW OF SYSTEMS: Denies any headache, visual changes, sinus symptoms. Shortness of breath is imp roving. Complains of scant cough without any sputum production. Denies any dysphagia. Currently d enies any abdominal pain, nausea, vomiting, fever, chills, edema, orthopnea. PHYSICAL EXAMINATION: GENERAL: Elderly woman, awake, alert, currently in no distress. VITAL SIGNS: Temperature 97.9 degrees Fahrenheit, respiratory rate is 18 per minute, heart rate 75 per minute, blood pressure 135/62, O2 saturation 98% on 4 liter nasal cannula. HEENT EXAM: Supple neck, no JVD, no lymphadenopathy, midline trachea, no thyromegaly. The patient has fair dentition. Has bilateral intraocular lens implants. CHEST EXAMINATION: Diminished but clear breath sounds. HEART: S1, S2 audible. No murmurs, regular rhythm. NECK: Tracheostomy in place. ABDOMEN: Soft, nontender, nondistended. PEG tube in place. Bowel sounds audible. EXTREMITIES: No edema. NEUROLOGIC: No focal deficit. LABORATORY DATA: Today, sodium is 141, potassium 4.2, chloride 103, bicarbonate 33, BUN 24, creatin ine 0.6. White count is down to 7.4 from 14.6 of yesterday, hemoglobin is 6.9, platelet count of 47 5. Chest x-ray was reviewed from yesterday which is showing bibasilar infiltrative changes. CT scan ch est also showing similar findings with small bilateral pleural effusions. ASSESSMENT AND RECOMMENDATIONS: 1. The patient is admitted with bilateral pneumonia with the possibility of chronic component to th e radiological findings with some underlying scarring. 2. History of hypertension. 3. History of cardiac arrhythmia. 4. History of chronic respiratory failure. The patient, however, is doing well on tracheostomy. 5. History of diaphragmatic hernia repair. 6. Hypothyroidism. RECOMMENDATIONS: Continue current treatment. The patient is progressing well on current treatment regimen. Dictated By: ALLISON DONOHUE MD AQ/NTS Conf#: [id number] DID#: [id number] CC: OLE DAO MD;*EndCC*
--- NOTE | 2017-04-14 15:07 | PN ---
Date/Time of Note Date/Time of Note DATE: 04/14/17 TIME: 14:54 Assessment/Plan VTE Prophylaxis VTE Prophylaxis Intervention: SCD's Lines/Catheters IV Catheter Type (from Nrsg): PICC Line Central line still needed: Yes Urinary Cath still in place: No Assessment/Plan Chief Complaint/Hosp Course s: 12.4 patient able to mouth words, spoke with over the phone o: Physical exam General: Patient is laying in bed , peg/trach, unable to speak 2/2 trach Mentation: Patient is alert and oriented 4 Head: Normocephalic atraumatic Eyes: EOMI, pupils reactive to light Neck: Supple, nontender, midline Respiratory: Clear to auscultation bilaterally Cardiovascular: regular rate, no obvious murmurs Gastrointestinal: non-tender to palpation, bowel sounds heard. peg tube Neurological: Moves all extremities spontaneously Skin: No new skin lesions Assessment/Plan Acute respiratory distress secondary to low hgb and HF - likely 2/2 low hgb and component of heart failure -cardiology consulted, bnp elevated -will increase lasix -abx likely uncessary, less likely chance of PNA, given recent treatment of PNA , images seen on CT/xray likely sequelae of recent PNA s/p treatment. -spoke with physicians at [facility], patient has known small bilateral effusions and has chronic severe secretions, which is the main reason she can not be taken off the trach. Leukocytosis secondary to #1 -resolved Anemia secondary to chronic disease vs iron deficiency - will check iron studies, low, starting iron supplements - FOBT negative in ED Dehydration - resolved -free water through the peg tube Hypertension - continue home medications hypothyroidism - Continue on home levothyroxine Chronic Trach/PEG - placed CM consult for evaluation for [facility] for trach capping trial once stable for discharge UTI? - no urinary symptoms at this time - UA pending Nondisplaced fractures of ribs -chronic, monitor Thrombocytosis - most likely reactive Cardiomegaly on CXR - Will order ECHO to further assess -cardiology evaluated patient -made adjustments dispo -transfusions and cardiology consult today -if stabilized, DC after barium swallow study tomorrow. Problems: Exam/Review of Systems Vital Signs Vitals Vital Signs Date Time Temp Pulse Resp B/P Pulse Ox O2 Delivery O2 Flow Rate FiO2 04/14/17 13:30 74 24 98 T Tube 5.0 28 04/14/17 11:49 98.0 137/69 Intake and Output 04/13/17 04/13/17 04/14/17 15:00 23:00 07:00 Intake Total 100 ml 100 ml Balance 100 ml 100 ml Results Result Diagram: 04/14/17 1207 04/14/17 0657 Results 24 hrs Laboratory Tests Test 04/14/17 06:57 04/14/17 12:07 White Blood Count 7.4 # Red Blood Count 2.42 L Hemoglobin 6.9 *L 7.1 L Hematocrit 22.3 L Mean Corpuscular Volume 92.1 Mean Corpuscular Hemoglobin 28.5 L Mean Corpuscular Hemoglobin Concent 30.9 L Red Cell Distribution Width 17.0 H Platelet Count 457 H Mean Platelet Volume 10.7 H Neutrophils % Segmented Neutrophils % (Manual) 90 H Lymphocytes % Lymphocytes % (Manual) 7 L Monocytes % Monocytes % (Manual) 3 Eosinophils % Basophils % Nucleated Red Blood Cells % 0.0 Neutrophils # Absolute Lymphocytes (Manual) 0.5 L Lymphocytes # Monocytes # Absolute Monocytes (Manual) 0.2 L Eosinophils # Basophils # Nucleated Red Blood Cells # Platelet Estimate INCREASED Giant Platelets 1 H Polychromasia 2+ Hypochromasia 1+ Poikilocytosis 1+ Anisocytosis 2+ Microcytosis 1+ Sodium Level 141 Potassium Level 4.2 Chloride Level 103 Carbon Dioxide Level 33 H Anion Gap 9 Blood Urea Nitrogen 24 H Creatinine 0.65 Glucose Level 119 Calcium Level 8.4 Phosphorus Level 3.5 Magnesium Level 2.0 Albumin 2.4 L Medications Medications Current Medications Alprazolam (Xanax) 0.5 mg Q8H PRN GTB ANXIETY Last administered on 04/14/17 11 :15; Admin Dose 0.5 MG; Start 04/13/17 at 15:30 Amiodarone HCl (Cordarone) 200 mg DAILY GTB Last administered on 04/14/17 09: 58; Admin Dose 200 MG; Start 04/14/17 at 09:00 Aspirin (Halfprin) 81 mg DAILY PO Last administered on 04/14/17 10:00; Admin Dose 81 MG; Start 04/14/17 at 09:00 Atorvastatin Calcium (Lipitor) 40 mg QHS GTB Last administered on 04/13/17 20: 15; Admin Dose 40 MG; Start 04/13/17 at 21:00 Carvedilol (Coreg) 6.25 mg BID GTB Last administered on 04/14/17 09:57; Admin Dose 6.25 MG; Start 04/13/17 at 21:00 Furosemide (Lasix) 20 mg DAILY GTB Last administered on 04/14/17 09:58; Admin Dose 20 MG; Start 04/14/17 at 09:00 Losartan Potassium (Cozaar) 50 mg DAILY GTB Last administered on 04/14/17 09: 54; Admin Dose 50 MG; Start 04/14/17 at 09:00 Multivitamins Therapeutic (Theragran) 1 tab DAILY GTB Last administered on 04/14 10:01; Admin Dose 1 TAB; Start 04/14/17 at 09:00 Pantoprazole (Protonix Tab) 40 mg 06,18 PO Last administered on 04/13/17 17:39 ; Admin Dose 40 MG; Start 04/13/17 at 18:00 Quetiapine Fumarate (Seroquel) 25 mg HS GTB Last administered on 04/13/17 20: 15; Admin Dose 25 MG; Start 04/13/17 at 21:00 Ferrous Sulfate (Feosol Liquid Cup) 220 mg BID GTB Last administered on 10:02; Admin Dose 220 MG; Start 04/13/17 at 21:00 Lactobacillus Acidophilus/ Rhamnosus (Culturelle) 1 cap TID PO Last administered on 04/14/17 13:23; Admin Dose 1 CAP; Start 04/13/17 at 21:00 Ondansetron HCl (Zofran Inj) 4 mg Q4H PRN IV NAUSEA AND/OR VOMITING; Start 04/13/17 at 15:30 Acetaminophen 650 mg 650 mg Q6H PRN PO PAIN LEVEL 1-3 OR FEVER; Start 04/13/17 at 15:30 Ampicillin Sodium/ Sulbactam Sodium 50 ml @ 100 mls/hr Q6 IVPB Last administered on 04/14/17 12:00; Admin Dose 100 MLS/HR; Start 04/13/17 at 18:00 Azithromycin (Zithromax 500mg/ NS (Pmx)) 250 ml @ 250 mls/hr Q24H IVPB Last administered on 04/14/17 14:44; Admin Dose 250 MLS/HR; Start 04/14/17 at 15:30 Methylprednisolone Sodium Succinate (Solu-Medrol) 80 mg Q8 IV Last administered on 04/14/17t 13:27; Admin Dose 80 MG; Start 04/14/17 at 14:00 Ferrous Sulfate (Slow Fe) 142 mg BID PO ; Start 04/14/17 at 21:00; Status UNV Ascorbic Acid (Vitamin C) 500 mg BID PO ; Start 04/14/17 at 21:00; Status UNV ERIC COOLEY Apr 14, 2017 15:05
--- NOTE | 2017-04-14 15:10 | RADRPT ---
Echocardiogram Report Patient Name: LULÚ MOELLER Gender: Female Date: 1945 Study Date: 14-Apr-2017 [employer]sembler Gar[employer] Form: Chidi Roca [facility] Location: 5538-A Ref. Physician: YAA WHITNEY Quality: Adequate Procedures: Transthoracic echocardiogram with complete 2D, M-Mode, and doppler examination. Indications: Evaluate Left Ventricular function. 2D/M Mode Doppler Measurement Value Normal Ranges Measurement Value Normal Ranges LVIDd 2D 4.6 3.5 - 5.6 cm AV Peak Toño 1.8 m/sec LVIDs 2D 2.7 2.1 - 4.1 cm AV Peak PG 13.0 mmHg FS 2D 40.7 % LVOT Peak Toño 1.2 m/sec LVPWd 2D 1.3 0.6 - 1.1 cm LVOT Peak PG 5.0 mmHg IVSd 2D 1.3 0.6 - 1.1 cm MV E Peak Toño 1.2 m/sec IVS/LVPW 2D 1.0 MV A Peak Toño 1.4 m/sec AoR Diam 2D 3.2 2.0 - 3.7 cm MV E/A 0.8 LA/Ao 2D 1 0 - 1 MV Decel Time 151 msec EDV 2D 96.7 cm3 MV E/A 0.8 ESV 2D 20.1 cm3 TR Peak Toño 3.6 m/sec LA Dimen 2D 4.4 2.3 - 4.0 cm TR Peak PG 51.0 mmHg RVSP 61.0 mmHg Findings Left Ventricle: Normal left ventricular systolic function. Normal left ventricular cavity size. Moderate concentric left ventricular hypertrophy. Ejection fraction is visually estimated at 60 %. Tissue Doppler/Mitral Doppler indices are consistent with impaired relaxation (Stage I diastolic dysfunction). Right Ventricle: Normal right ventricular size. Normal right ventricular systolic function. Left Atrium: There is moderate enlargement of left atrium. Right Atrium: The right atrium is normal in size. Mitral Valve: Mild mitral leaflet calcification. Mild mitral annular calcification. Mild mitral valve regurgitation. The regurgitation jet is eccentrically directed which may underestimate the severity of mitral regurgitation. Aortic Valve: Aortic sclerosis without stenosis. Mild aortic valve regurgitation. The regurgitation jet is eccentrically directed. Tricuspid Valve: Normal appearance of the tricuspid valve. Estimated peak PA systolic pressure 61 mmHg. There is mild tricuspid regurgitation. Pulmonic Valve: Pulmonic valve not well visualized. There is trace pulmonic regurgitation. Pericardium: Normal pericardium with no significant pericardial effusion. Aorta: Normal aortic root. IVC: Dilated IVC with poor respiratory collapse, however, patient on ventilator. Conclusions 1.Normal left ventricular systolic function. Normal left ventricular cavity size. Moderate concentric left ventricular hypertrophy. Ejection fraction is visually estimated at 60 %. Tissue Doppler/Mitral Doppler indices are consistent with impaired relaxation (Stage I diastolic dysfunction). 2.There is moderate enlargement of left atrium. 3.Mild mitral leaflet calcification. Mild mitral annular calcification. Mild mitral valve regurgitation. The regurgitation jet is eccentrically directed which may underestimate the severity of mitral regurgitation. 4.Aortic sclerosis without stenosis. Mild aortic valve regurgitation. The regurgitation jet is eccentrically directed. 5.Normal appearance of the tricuspid valve. Estimated peak PA systolic pressure 61 mmHg. There is mild tricuspid regurgitation. 6.Dilated IVC with poor respiratory collapse, however, patient on ventilator. Electronically Signed By: Pawan Magallanes 14-Apr-2017 15:09:39 -0800 Patient Name: LULÚ MOELLER Study Date: 14-Apr-2017 [id number]
--- NOTE | 2017-04-14 15:11 | CONS ---
Date/Time of Note Date/Time of Note DATE: 04/14/17 TIME: 15:01 Assessment/Plan Assessment/Plan Additional Assessment/Plan Acute blood loss anemia Mild acute decompensated congestive heart failure Chronic respiratory failure Paroxysmal atrial fibrillation Hypertension -Patient transferred to our facility secondary to laboratory studies and as an outpatient with severe anemia. Patient planned to undergo blood transfusion today. BNP is quite elevated. CT chest reviewed with small pleural effusion and minimal pulmonary vascular congestion. retirement medication list with patient on Lasix 20 mg IV daily. I will give 1 dose of 40 mg IV today given patient plan for blood transfusion and increase Lasix to 40 mg p.o. daily. On review of medical records, patient with history of paroxysmal atrial fibrillation. Telemetry with brief episode of atrial fibrillation lasting for a few seconds. Given her severe anemia, would not start anticoagulation at the current time. Would continue amiodarone and beta-bel if no contraindication. On review of medication list, patient is on amiodarone and Seroquel in the outpatient setting. She has been put on azithromycin. I discussed with hospitalist, if patient requires antibiotics, would use a non-QT prolonging agent. Will check ECG and echocardiogram. Consultation Date/Type/Reason Admit Date/Time 04/13/17 Type of Consultation: cv Reason for Consultation Cardiology evaluation Hx of Present Illness This is a 71-year-old female with past medical history of respiratory failure status post tracheostomy and PEG approximately 6 months ago after surgery, hypertension who was brought to the emergency room secondary to laboratory studies and as an outpatient with evidence of severe anemia. Discussion with patient, she denies symptoms of shortness of breath or dizziness at the current time. She does get occasional palpitations at times but infrequently. She denies any dizziness or lightheadedness, abdominal pain or nausea. Laboratory studies elevated elevated BNP and for this reason cardiology consultation was requested. 12 point review of systems was performed with all pertinent positives and negatives mentioned above and all else is negative Past Medical History Respiratory failure Paroxysmal atrial fibrillation Medical History: diabetes, hypertension, hypothyroid, other (anemia) Past Surgical History Past Surgical Hx: cholecystectomy, other (Trach, peg, diaphragmatic hernia repair) Family History Significant Family History: no pertinent family hx Social History Alcohol Use: none Smoking Status: Never smoker Drug Use: none Exam/Review of Systems Vital Signs Vitals Vital Signs Date Time Temp Pulse Resp B/P Pulse Ox O2 Delivery O2 Flow Rate FiO2 12/4/17 13:30 74 24 98 T Tube 5.0 28 04/14/17 11:49 98.0 137/69 Intake and Output 04/13/17 04/13/17 04/14/17 15:00 23:00 07:00 Intake Total 100 ml 100 ml Balance 100 ml 100 ml Exam Anxious at times, following commands, able to give history of Constitutional: alert, oriented Head: normocephalic Neck: other (Tracheostomy) Respiratory: other (Coarse breath sounds bilaterally, no wheezing) Cardiovascular: other (S1-S2 heard), regular rate and rhythm Gastrointestinal: bowel sounds, non-tender, soft Extremities: edema (Trivial) Results Result Diagram: 04/14/17 1207 04/14/17 0657 Results 24 hrs Laboratory Tests Test 04/14/17 06:57 04/14/17 12:07 White Blood Count 7.4 # Red Blood Count 2.42 L Hemoglobin 6.9 *L 7.1 L Hematocrit 22.3 L Mean Corpuscular Volume 92.1 Mean Corpuscular Hemoglobin 28.5 L Mean Corpuscular Hemoglobin Concent 30.9 L Red Cell Distribution Width 17.0 H Platelet Count 457 H Mean Platelet Volume 10.7 H Neutrophils % Segmented Neutrophils % (Manual) 90 H Lymphocytes % Lymphocytes % (Manual) 7 L Monocytes % Monocytes % (Manual) 3 Eosinophils % Basophils % Nucleated Red Blood Cells % 0.0 Neutrophils # Absolute Lymphocytes (Manual) 0.5 L Lymphocytes # Monocytes # Absolute Monocytes (Manual) 0.2 L Eosinophils # Basophils # Nucleated Red Blood Cells # Platelet Estimate INCREASED Giant Platelets 1 H Polychromasia 2+ Hypochromasia 1+ Poikilocytosis 1+ Anisocytosis 2+ Microcytosis 1+ Sodium Level 141 Potassium Level 4.2 Chloride Level 103 Carbon Dioxide Level 33 H Anion Gap 9 Blood Urea Nitrogen 24 H Creatinine 0.65 Glucose Level 119 Calcium Level 8.4 Phosphorus Level 3.5 Magnesium Level 2.0 Albumin 2.4 L Medications Medications Current Medications Alprazolam (Xanax) 0.5 mg Q8H PRN GTB ANXIETY Last administered on 04/14/17 11 :15; Admin Dose 0.5 MG; Start 04/13/17 at 15:30 Amiodarone HCl (Cordarone) 200 mg DAILY GTB Last administered on 04/14/17 09: 58; Admin Dose 200 MG; Start 04/14/17 at 09:00 Aspirin (Halfprin) 81 mg DAILY PO Last administered on 04/14/17 10:00; Admin Dose 81 MG; Start 04/14/17 at 09:00 Atorvastatin Calcium (Lipitor) 40 mg QHS GTB Last administered on 04/13/17 20: 15; Admin Dose 40 MG; Start 04/13/17 at 21:00 Carvedilol (Coreg) 6.25 mg BID GTB Last administered on 04/14/17 09:57; Admin Dose 6.25 MG; Start 04/13/17 at 21:00 Furosemide (Lasix) 20 mg DAILY GTB Last administered on 04/14/17 09:58; Admin Dose 20 MG; Start 04/14/17 at 09:00 Losartan Potassium (Cozaar) 50 mg DAILY GTB Last administered on 04/14/17 09: 54; Admin Dose 50 MG; Start 04/14/17 at 09:00 Multivitamins Therapeutic (Theragran) 1 tab DAILY GTB Last administered on 04/14 10:01; Admin Dose 1 TAB; Start 04/14/17 at 09:00 Pantoprazole (Protonix Tab) 40 mg 06,18 PO Last administered on 04/13/17 17:39 ; Admin Dose 40 MG; Start 04/13/17 at 18:00 Quetiapine Fumarate (Seroquel) 25 mg HS GTB Last administered on 04/13/17 20: 15; Admin Dose 25 MG; Start 04/13/17 at 21:00 Ferrous Sulfate (Feosol Liquid Cup) 220 mg BID GTB Last administered on 10:02; Admin Dose 220 MG; Start 04/13/17 at 21:00 Lactobacillus Acidophilus/ Rhamnosus (Culturelle) 1 cap TID PO Last administered on 04/14/17 13:23; Admin Dose 1 CAP; Start 04/13/17 at 21:00 Ondansetron HCl (Zofran Inj) 4 mg Q4H PRN IV NAUSEA AND/OR VOMITING; Start 04/13/17 at 15:30 Acetaminophen 650 mg 650 mg Q6H PRN PO PAIN LEVEL 1-3 OR FEVER; Start 04/13/17 at 15:30 Ampicillin Sodium/ Sulbactam Sodium 50 ml @ 100 mls/hr Q6 IVPB Last administered on 04/14/17 12:00; Admin Dose 100 MLS/HR; Start 04/13/17 at 18:00 Azithromycin (Zithromax 500mg/ NS (Pmx)) 250 ml @ 250 mls/hr Q24H IVPB Last administered on 04/14/17 14:44; Admin Dose 250 MLS/HR; Start 04/14/17 at 15:30 Methylprednisolone Sodium Succinate (Solu-Medrol) 80 mg Q8 IV Last administered on 04/14/17 13:27; Admin Dose 80 MG; Start 04/14/17 at 14:00 Ferrous Sulfate (Slow Fe) 142 mg BID PO ; Start 04/14/17 at 21:00 Ascorbic Acid (Vitamin C) 500 mg BID PO ; Start 04/14/17 at 21:00 Ernesto Jon DO Apr 14, 2017 15:11
[2017-04-14] MEDS ORDERED: AZITHROMYCIN 500MG/NS (PMX) 250 ML IVPB SCH (15:30)
[2017-04-14] MEDS ORDERED: FUROSEMIDE 40 MG INJ IV ONE (17:00)
[2017-04-14 17:12] LABS: ADD UMIC YES; UR ASCORBIC ACID 40 mg/dL (NEGATIVE); UR BILIRUBIN (Dip) NEGATIVE (NEGATIVE); UR BLOOD (Dip) NEGATIVE (NEGATIVE); UR CLARITY CLEAR (CLEAR); UR COLOR YELLOW (YELLOW); UR GLUCOSE (Dip) NEGATIVE (NEGATIVE); UR KETONES (Dip) NEGATIVE (NEGATIVE); UR LEUKOCYTE ESTERASE (Dip) TRACE Leu/ul (NEGATIVE); UR NITRITE (Dip) NEGATIVE (NEGATIVE); UR RBC 1 /HPF (0-5); UR TOTAL PROTEIN (Dip) 1+ mg/dl (NEGATIVE); UR UROBILINOGEN (Dip) NEGATIVE (NEGATIVE)
[2017-04-14] MEDS: ATORVASTATIN 40 MG TAB GTB SCH (21:00)
[2017-04-14] MEDS: QUETIAPINE 25 MG TAB GTB SCH (21:00)
[2017-04-14] MEDS: ASCORBIC ACID 500 MG TAB PO SCH (21:00)
[2017-04-14] MEDS: FERROUS SULFATE (SR) 142 MG TAB PO SCH (21:00)
[2017-04-14] MEDS: DEXTROSE 5%-0.45% NACL 1,000 ML IV SCH (23:45)
[2017-04-15] VITALS (12 sets, daily range): BP systolic 130–151; BP diastolic 66–88; PULSE 58–74; RESP 16–20
[2017-04-15] MEDS ORDERED: LANSOPRAZOLE 15 MG CAP NGT SCH (06:00)
[2017-04-15] MEDS: LANSOPRAZOLE 30 MG CAP NGT SCH (06:00)
[2017-04-15] MEDS: LEVOTHYROXINE 100 MCG TAB GTB SCH (07:00)
[2017-04-15 07:34] LABS: ABNORMAL IP MESSAGE 1; BASOPHILS % 0.1 % (0.0-2.0); HEMATOCRIT 28.1 % (37.0-47.0); LYMPHOCYTES # 0.6 10^3/ul (0.8-2.9); LYMPHOCYTES % 5.9 % (15.0-51.0); MEAN CORPUSCULAR HEMOGLOBIN 28.9 pg (29.0-33.0); MEAN CORPUSCULAR VOLUME 90.4 fl (82.0-101.0); MEAN PLATELET VOLUME 10.5 fl (7.4-10.4); MONOCYTE # 0.3 10^3/ul (0.3-0.9); MONOCYTES % 3.1 % (0.0-11.0); NEUTROPHILS % 90.1 % (39.0-77.0); PLATELET COUNT 503 10^3/UL (140-415); RED BLOOD COUNT 3.11 10^6/ul (4.20-5.40)
[2017-04-15 07:37] LABS: POSITIVE DIFF @See below
[2017-04-15 08:03] LABS: ALBUMIN 2.7 g/dl (3.3-4.9); CALCIUM 8.1 mg/dl (8.4-10.2); CREATININE 0.68 mg/dl (0.44-1.00); CREATININE 0.7 mg/dl (0.44-1.00); PHOSPHORUS 3.7 mg/dl (2.5-4.9); POTASSIUM 3.8 mmol/L (3.5-5.1)
[2017-04-15] MEDS: ALBUTEROL/IPRATROPIUM (NEB) 3 ML AMP INH SCH ×4 (08:15→20:25)
[2017-04-15] MEDS: ASCORBIC ACID 500 MG TAB PO SCH ×2 (09:00→22:48)
[2017-04-15] MEDS: AMIODARONE 200 MG TAB GTB SCH (09:00)
[2017-04-15] MEDS ORDERED: FUROSEMIDE 40 MG/4 ML CUP GTB SCH (09:00)
[2017-04-15] MEDS: LOSARTAN 50 MG TAB GTB SCH (09:00)
[2017-04-15] MEDS: ASPIRIN (EC) 81 MG TAB PO SCH (09:00)
[2017-04-15] MEDS: LACTOBACILLUS RHAMNOSUS CAP PO SCH ×3 (09:00→22:47)
[2017-04-15] MEDS: FERROUS SULFATE 60 MG/ML 5ML CUP GTB SCH ×2 (09:00→22:47)
[2017-04-15] MEDS: FERROUS SULFATE (SR) 142 MG TAB PO SCH ×2 (09:00→22:47)
[2017-04-15] MEDS: MULTIVITAMINS THERAPEUTIC TAB GTB SCH (09:00)
[2017-04-15] MEDS: METHYLPREDNISOLONE 40 MG INJ IV SCH ×3 (09:04→22:54)
[2017-04-15] MEDS ORDERED: FUROSEMIDE 20 MG INJ IV ONE (09:30)
--- NOTE | 2017-04-15 10:03 | CONS ---
Date/Time of Note Date/Time of Note DATE: 04/15/17 TIME: 09:38 Assessment/Plan Assessment/Plan Chief Complaint/Hosp Course Summary Assessment and Plan: Assessment: Anemia R/o PUD vs gastritis G-tube dysfunction URI Chronic Trach Leukocytosis HTN Hypothyroidism Cardiomegaly Plan: Continue to monitor H/H transfuse as needed CX at g-tube site G-tube care 4 times per day and as needed with Betadine and NS Continue PPI NPO after midnight EGD tomorrow Endoscopy - risks/benefits/alternatives/indications of procedure and sedation/ anesthesia discussed with who states understanding and gives informed consent to proceed. PARQ held and questions were answered. Patient seen in collaboration with Dr. Reis Problems: Consultation Date/Type/Reason Admit Date/Time 04/13/17 Date of Consultation: Apr 15, 2017 Type of Consultation: GI Reason for Consultation Coffee ground drainage from g-tube site Abnormal drainage from g-tube site Hx of Present Illness This is a 71 year old female with past medical history of HTN, HLD, hypothyroidism, s/p complicated diaphragmatic hernia repair needing trach and peg, Patient is forgetful, able to mouth answer, but most of HPI obtained from medical records. Patient brought to the hospital for coughing with increased sputum production, and fatigue. Upon work-up patient noted to have HGB 7.9, HGB was rechecked and found to be 6.9, FOBT was obtained in the ER negative, 1 unit of PRBCS given las HGB 9.0. Moreover, nurse reports coffee ground residuals found via aspiration of g-tube. At the time of examination patient denies nausea, vomiting, hematemesis, rectal bleeding. She states g-tube leakage has been on-going x1 year. Aspiration reveled brownish/greenish fluid , with some purulent discharge around ostomy site. Plan for ostomy site cx, montor h/h, npo after midnight and plan for EGD tomorrow to r/u PUD vs gastritis vs irritation and to also assess positioning of g-tube. Gastrointestinal: pain (left flank area) Past Medical History Medical History: diabetes, hypertension, hypothyroid, other (anemia) Past Surgical History Past Surgical Hx: cholecystectomy, other (Trach, peg, diaphragmatic hernia repair) Social History Alcohol Use: none Smoking Status: Never smoker Drug Use: none Exam/Review of Systems Vital Signs Vitals Vital Signs Date Time Temp Pulse Resp B/P Pulse Ox O2 Delivery O2 Flow Rate FiO2 04/15/17 08:16 98.0 65 20 151/72 96 04/15/17 05:30 Aerosol 5.0 28 T Tube Intake and Output 04/14/17 04/14/17 04/15/17 15:00 23:00 07:00 Intake Total 520 ml Output Total 1200 ml Balance -1200 ml 520 ml Exam Constitutional: alert, oriented (forgetful) Psych: no complaints Head: atraumatic, normocephalic Eyes: nl conjunctiva ENMT: nl external ears & nose, nl lips & teeth Neck: supple Respiratory: congested cough, crackles/rales, other (trach) Cardiovascular: regular rate and rhythm Gastrointestinal: bowel sounds, other (g-tube), soft, surgical scars, No distended, No firm, No hepatomegaly, No mass, No rebound or guarding, No splenomegaly Genitourinary - Female: nl adnexae Musculoskeletal: muscle weakness Results Result Diagram: 04/15/17 0710 04/15/17 0710 Results 24 hrs Laboratory Tests Test 04/14/17 12:07 04/14/17 14:26 04/14/17 16:45 04/15/17 06:27 Hemoglobin 7.1 L Ferritin 146.0 Urine Color YELLOW Urine Clarity CLEAR Urine pH 6.0 Urine Specific [place] 1.030 Urine Ketones NEGATIVE Urine Nitrite NEGATIVE Urine Bilirubin NEGATIVE Urine Urobilinogen NEGATIVE Urine Leukocyte Esterase TRACE A Urine Microscopic RBC 1 Urine Microscopic WBC 27 H Urine Hemoglobin NEGATIVE Urine Glucose NEGATIVE Urine Total Protein 1+ H Lab Scanned Report BLOOD TRANSFUSION Test 04/15/17 07:10 White Blood Count 10.0 # Red Blood Count 3.11 #L Hemoglobin 9.0 #L Hematocrit 28.1 #L Mean Corpuscular Volume 90.4 Mean Corpuscular Hemoglobin 28.9 L Mean Corpuscular Hemoglobin Concent 32.0 Red Cell Distribution Width 17.0 H Platelet Count 503 H Mean Platelet Volume 10.5 H Neutrophils % 90.1 H Lymphocytes % 5.9 L Monocytes % 3.1 Eosinophils % 0.0 Basophils % 0.1 Nucleated Red Blood Cells % 0.0 Neutrophils # 9.0 H Lymphocytes # 0.6 L Monocytes # 0.3 Eosinophils # 0.0 Basophils # 0.0 Nucleated Red Blood Cells # 0.0 Sodium Level 138 Potassium Level 3.8 Chloride Level 100 Carbon Dioxide Level 32 H Anion Gap 10 Blood Urea Nitrogen 29 H Creatinine 0.68 Glucose Level 145 Calcium Level 8.0 L Phosphorus Level 3.7 Magnesium Level 2.0 Albumin 2.7 L Medications Medications Current Medications Alprazolam (Xanax) 0.5 mg Q8H PRN GTB ANXIETY Last administered on 04/14/17 15 :57; Admin Dose 0.5 MG; Start 04/13/17 at 15:30 Amiodarone HCl (Cordarone) 200 mg DAILY GTB Last administered on 04/14/17 09: 58; Admin Dose 200 MG; Start 04/14/17 at 09:00 Aspirin (Halfprin) 81 mg DAILY PO Last administered on 04/14/17 10:00; Admin Dose 81 MG; Start 04/14/17 at 09:00 Atorvastatin Calcium (Lipitor) 40 mg QHS GTB Last administered on 04/13/17 20: 15; Admin Dose 40 MG; Start 04/13/17 at 21:00 Carvedilol (Coreg) 6.25 mg BID GTB Last administered on 04/14/17 09:57; Admin Dose 6.25 MG; Start 04/13/17 at 21:00 Losartan Potassium (Cozaar) 50 mg DAILY GTB Last administered on 04/14/17 09: 54; Admin Dose 50 MG; Start 04/14/17 at 09:00 Multivitamins Therapeutic (Theragran) 1 tab DAILY GTB Last administered on 04/14 10:01; Admin Dose 1 TAB; Start 04/14/17 at 09:00 Quetiapine Fumarate (Seroquel) 25 mg HS GTB Last administered on 04/13/17 20: 15; Admin Dose 25 MG; Start 04/13/17 at 21:00 Ferrous Sulfate (Feosol Liquid Cup) 220 mg BID GTB Last administered on 10:02; Admin Dose 220 MG; Start 04/13/17 at 21:00 Lactobacillus Acidophilus/ Rhamnosus (Culturelle) 1 cap TID PO Last administered on 04/14/17 13:23; Admin Dose 1 CAP; Start 04/13/17 at 21:00 Ondansetron HCl (Zofran Inj) 4 mg Q4H PRN IV NAUSEA AND/OR VOMITING; Start 04/13/17 at 15:30 Acetaminophen (Tylenol Tab) 650 mg Q6H PRN PO PAIN LEVEL 1-3 OR FEVER; Start 04/13/17 at 15:30 Methylprednisolone Sodium Succinate (Solu-Medrol) 80 mg Q8 IV Last administered on 04/15/17 09:04; Admin Dose 80 MG; Start 04/14/17 at 14:00 Ferrous Sulfate (Slow Fe) 142 mg BID PO ; Start 04/14/17 at 21:00 Ascorbic Acid (Vitamin C) 500 mg BID PO ; Start 04/14/17 at 21:00 Furosemide (Lasix) 40 mg DAILY GTB ; Start 04/15/17 at 09:00 Lansoprazole 30 mg 30 mg DAILY@06 NGT ; Start 04/15/17 at 06:00 Dextrose/Sodium Chloride (D5-1/2ns) 1,000 ml @ 40 mls/hr Q24H IV Last administered on 04/14/17 23:45; Admin Dose 75 MLS/HR; Start 04/14/17 at 23:30 Copies To: CC: SALEEM REIS MD, VICTORIA Apr 15, 2017 09:49
--- NOTE | 2017-04-15 10:28 | CONS ---
Date/Time of Note Date/Time of Note DATE: 04/15/17 TIME: 10:26 Assessment/Plan Assessment/Plan Chief Complaint/Hosp Course Consultation dictated #[id number]. Continue current treatment. Problems: Additional Assessment/Plan Assessment and recommendations; 1. Patient admitted with anemia and possibly mild CHF with interval improvement. 2. Chronic appearing interstitial scarring based upon CT imaging of the chest. 3. Status post diaphragmatic hernia repair, leading to respiratory failure patient however patient doing well on T-piece via tracheostomy. 4. History of cardiac arrhythmia 5. History of hypothyroidism. 6. Likely chronic bronchitis. Continue current supportive care. Agree with stopping antibiotics. Consultation Date/Type/Reason Admit Date/Time Apr 13, 2017 at 13:23 Initial Consult Date 04/15/17 Type of Consultation: Pulmonary 24 HR Interval Summary Free Text/Dictation Patient's condition is stable. Remains awake alert. Denies any shortness of breath. Complains of occasional cough with brown sputum production. General exam; elderly woman, awake alert, currently in no distress. Doing well on T-piece via tracheostomy. Exam/Review of Systems Vital Signs Vitals Vital Signs Date Time Temp Pulse Resp B/P Pulse Ox O2 Delivery O2 Flow Rate FiO2 04/15/17 08:16 98.0 65 20 151/72 96 04/15/17 05:30 Aerosol 5.0 28 T Tube Intake and Output 04/14/17 04/14/17 04/15/17 15:00 23:00 07:00 Intake Total 520 ml Output Total 1200 ml Balance -1200 ml 520 ml Exam HEENT exam; supple neck, no JVD. No lymphadenopathy. Midline trachea. No thyromegaly. Tracheostomy placed. Patient has fair dentition. Chest exam; diminished but clear breath sounds. S1-S2 audible, no murmurs. Regular rhythm. Abdomen exam; soft, G-tube in place. No organomegaly. Nontender. Bowel sounds audible. Extremity exam; no edema. DELIVERY REP exam; no focal motor deficit. Results Result Diagram: 04/15/17 0710 04/15/17 0710 Results 24 hrs Laboratory Tests Test 04/14/17 12:07 04/14/17 14:26 04/14/17 16:45 04/15/17 06:27 Hemoglobin 7.1 L Ferritin 146.0 Urine Color YELLOW Urine Clarity CLEAR Urine pH 6.0 Urine Specific [place] 1.030 Urine Ketones NEGATIVE Urine Nitrite NEGATIVE Urine Bilirubin NEGATIVE Urine Urobilinogen NEGATIVE Urine Leukocyte Esterase TRACE A Urine Microscopic RBC 1 Urine Microscopic WBC 27 H Urine Hemoglobin NEGATIVE Urine Glucose NEGATIVE Urine Total Protein 1+ H Lab Scanned Report BLOOD TRANSFUSION Test 04/15/17 07:10 White Blood Count 10.0 # Red Blood Count 3.11 #L Hemoglobin 9.0 #L Hematocrit 28.1 #L Mean Corpuscular Volume 90.4 Mean Corpuscular Hemoglobin 28.9 L Mean Corpuscular Hemoglobin Concent 32.0 Red Cell Distribution Width 17.0 H Platelet Count 503 H Mean Platelet Volume 10.5 H Neutrophils % 90.1 H Lymphocytes % 5.9 L Monocytes % 3.1 Eosinophils % 0.0 Basophils % 0.1 Nucleated Red Blood Cells % 0.0 Neutrophils # 9.0 H Lymphocytes # 0.6 L Monocytes # 0.3 Eosinophils # 0.0 Basophils # 0.0 Nucleated Red Blood Cells # 0.0 Sodium Level 138 Potassium Level 3.8 Chloride Level 100 Carbon Dioxide Level 32 H Anion Gap 10 Blood Urea Nitrogen 29 H Creatinine 0.68 Glucose Level 145 Calcium Level 8.0 L Phosphorus Level 3.7 Magnesium Level 2.0 Albumin 2.7 L Medications Medications Current Medications Alprazolam (Xanax) 0.5 mg Q8H PRN GTB ANXIETY Last administered on 04/14/17 15 :57; Admin Dose 0.5 MG; Start 04/13/17 at 15:30 Amiodarone HCl (Cordarone) 200 mg DAILY GTB Last administered on 04/14/17 09: 58; Admin Dose 200 MG; Start 04/14/17 at 09:00 Aspirin (Halfprin) 81 mg DAILY PO Last administered on 04/14/17 10:00; Admin Dose 81 MG; Start 04/14/17 at 09:00 Atorvastatin Calcium (Lipitor) 40 mg QHS GTB Last administered on 04/13/17 20: 15; Admin Dose 40 MG; Start 04/13/17 at 21:00 Carvedilol (Coreg) 6.25 mg BID GTB Last administered on 04/14/17 09:57; Admin Dose 6.25 MG; Start 04/13/17 at 21:00 Losartan Potassium (Cozaar) 50 mg DAILY GTB Last administered on 04/14/17 09: 54; Admin Dose 50 MG; Start 04/14/17 at 09:00 Multivitamins Therapeutic (Theragran) 1 tab DAILY GTB Last administered on 04/14 10:01; Admin Dose 1 TAB; Start 04/14/17 at 09:00 Quetiapine Fumarate (Seroquel) 25 mg HS GTB Last administered on 04/13/17 20: 15; Admin Dose 25 MG; Start 04/13/17 at 21:00 Ferrous Sulfate (Feosol Liquid Cup) 220 mg BID GTB Last administered on 10:02; Admin Dose 220 MG; Start 04/13/17 at 21:00 Lactobacillus Acidophilus/ Rhamnosus (Culturelle) 1 cap TID PO Last administered on 04/14/17 13:23; Admin Dose 1 CAP; Start 04/13/17 at 21:00 Ondansetron HCl (Zofran Inj) 4 mg Q4H PRN IV NAUSEA AND/OR VOMITING; Start 04/13/17 at 15:30 Acetaminophen (Tylenol Tab) 650 mg Q6H PRN PO PAIN LEVEL 1-3 OR FEVER; Start 04/13/17 at 15:30 Methylprednisolone Sodium Succinate (Solu-Medrol) 80 mg Q8 IV Last administered on 04/15/17 09:04; Admin Dose 80 MG; Start 04/14/17 at 14:00 Ferrous Sulfate (Slow Fe) 142 mg BID PO ; Start 04/14/17 at 21:00 Ascorbic Acid (Vitamin C) 500 mg BID PO ; Start 04/14/17 at 21:00 Furosemide (Lasix) 40 mg DAILY GTB ; Start 04/15/17 at 09:00 Lansoprazole 30 mg 30 mg DAILY@06 NGT ; Start 04/15/17 at 06:00 Dextrose/Sodium Chloride (D5-1/2ns) 1,000 ml @ 40 mls/hr Q24H IV Last administered on 04/14/17 23:45; Admin Dose 75 MLS/HR; Start 04/14/17 at 23:30 ALLISON DONOHUE Apr 15, 2017 10:28
--- NOTE | 2017-04-15 11:00 | CONS ---
Date/Time of Note Date/Time of Note DATE: 04/15/17 TIME: 10:58 Assessment/Plan Assessment/Plan Additional Assessment/Plan Acute blood loss anemia Mild acute decompensated congestive heart failure Chronic respiratory failure Paroxysmal atrial fibrillation Hypertension -Patient with improvement in hemoglobin after transfusion. Patient currently not receiving medications via PEG secondary to possible issues with PEG. Given patient has not received Lasix today, would change to 20 mg IV daily in the interim until PEG able to be used. Remains in sinus rhythm on telemetry. Consultation Date/Type/Reason Admit Date/Time Apr 13, 2017 at 13:23 Initial Consult Date 04/15/17 Type of Consultation: cv 24 HR Interval Summary Free Text/Dictation Denies shortness of breath, feeling better compared to yesterday. Denies palpitations Exam/Review of Systems Vital Signs Vitals Vital Signs Date Time Temp Pulse Resp B/P Pulse Ox O2 Delivery O2 Flow Rate FiO2 04/15/17 08:16 98.0 65 20 151/72 96 04/15/17 05:30 Aerosol 5.0 28 T Tube Intake and Output 04/14/17 04/14/17 04/15/17 14:59 22:59 06:59 Intake Total 520 ml Output Total 1200 ml Balance -1200 ml 520 ml Exam No apparent distress Constitutional: alert, oriented Head: normocephalic Respiratory: other (Coarse rhonchorous breath sounds, no wheezing) Cardiovascular: other (S1-S2 heard), regular rate and rhythm Gastrointestinal: bowel sounds, non-tender, soft Extremities: edema (Trace) Results Result Diagram: 04/15/17 0710 04/15/17 0710 Results 24 hrs Laboratory Tests Test 04/14/17 12:07 04/14/17 14:26 04/14/17 16:45 04/15/17 06:27 Hemoglobin 7.1 L Ferritin 146.0 Urine Color YELLOW Urine Clarity CLEAR Urine pH 6.0 Urine Specific [place] 1.030 Urine Ketones NEGATIVE Urine Nitrite NEGATIVE Urine Bilirubin NEGATIVE Urine Urobilinogen NEGATIVE Urine Leukocyte Esterase TRACE A Urine Microscopic RBC 1 Urine Microscopic WBC 27 H Urine Hemoglobin NEGATIVE Urine Glucose NEGATIVE Urine Total Protein 1+ H Lab Scanned Report BLOOD TRANSFUSION Test 04/15/17 07:10 White Blood Count 10.0 # Red Blood Count 3.11 #L Hemoglobin 9.0 #L Hematocrit 28.1 #L Mean Corpuscular Volume 90.4 Mean Corpuscular Hemoglobin 28.9 L Mean Corpuscular Hemoglobin Concent 32.0 Red Cell Distribution Width 17.0 H Platelet Count 503 H Mean Platelet Volume 10.5 H Neutrophils % 90.1 H Lymphocytes % 5.9 L Monocytes % 3.1 Eosinophils % 0.0 Basophils % 0.1 Nucleated Red Blood Cells % 0.0 Neutrophils # 9.0 H Lymphocytes # 0.6 L Monocytes # 0.3 Eosinophils # 0.0 Basophils # 0.0 Nucleated Red Blood Cells # 0.0 Sodium Level 138 Potassium Level 3.8 Chloride Level 100 Carbon Dioxide Level 32 H Anion Gap 10 Blood Urea Nitrogen 29 H Creatinine 0.68 Glucose Level 145 Calcium Level 8.0 L Phosphorus Level 3.7 Magnesium Level 2.0 Albumin 2.7 L Medications Medications Current Medications Alprazolam (Xanax) 0.5 mg Q8H PRN GTB ANXIETY Last administered on 04/14/17 15 :57; Admin Dose 0.5 MG; Start 04/13/17 at 15:30 Amiodarone HCl (Cordarone) 200 mg DAILY GTB Last administered on 04/14/17 09: 58; Admin Dose 200 MG; Start 04/14/17 at 09:00 Aspirin (Halfprin) 81 mg DAILY PO Last administered on 04/14/17 10:00; Admin Dose 81 MG; Start 04/14/17 at 09:00 Atorvastatin Calcium (Lipitor) 40 mg QHS GTB Last administered on 04/13/17 20: 15; Admin Dose 40 MG; Start 04/13/17 at 21:00 Carvedilol (Coreg) 6.25 mg BID GTB Last administered on 04/14/17 09:57; Admin Dose 6.25 MG; Start 04/13/17 at 21:00 Losartan Potassium (Cozaar) 50 mg DAILY GTB Last administered on 04/14/17 09: 54; Admin Dose 50 MG; Start 04/14/17 at 09:00 Multivitamins Therapeutic (Theragran) 1 tab DAILY GTB Last administered on 04/14 10:01; Admin Dose 1 TAB; Start 04/14/17 at 09:00 Quetiapine Fumarate (Seroquel) 25 mg HS GTB Last administered on 04/13/17 20: 15; Admin Dose 25 MG; Start 04/13/17 at 21:00 Ferrous Sulfate (Feosol Liquid Cup) 220 mg BID GTB Last administered on 10:02; Admin Dose 220 MG; Start 04/13/17 at 21:00 Lactobacillus Acidophilus/ Rhamnosus (Culturelle) 1 cap TID PO Last administered on 04/14/17 13:23; Admin Dose 1 CAP; Start 04/13/17 at 21:00 Ondansetron HCl (Zofran Inj) 4 mg Q4H PRN IV NAUSEA AND/OR VOMITING; Start 04/13/17 at 15:30 Acetaminophen (Tylenol Tab) 650 mg Q6H PRN PO PAIN LEVEL 1-3 OR FEVER; Start 04/13/17 at 15:30 Methylprednisolone Sodium Succinate (Solu-Medrol) 80 mg Q8 IV Last administered on 04/15/17 09:04; Admin Dose 80 MG; Start 04/14/17 at 14:00 Ferrous Sulfate (Slow Fe) 142 mg BID PO ; Start 04/14/17 at 21:00 Ascorbic Acid (Vitamin C) 500 mg BID PO ; Start 04/14/17 at 21:00 Furosemide (Lasix) 40 mg DAILY GTB ; Start 04/15/17 at 09:00 Lansoprazole 30 mg 30 mg DAILY@06 NGT ; Start 04/15/17 at 06:00 Dextrose/Sodium Chloride (D5-1/2ns) 1,000 ml @ 40 mls/hr Q24H IV Last administered on 04/14/17 23:45; Admin Dose 75 MLS/HR; Start 04/14/17 at 23:30 Ernesto Jon DO Apr 15, 2017 11:00
[2017-04-15] MEDS: FUROSEMIDE 20 MG INJ IV SCH (12:03)
--- NOTE | 2017-04-15 14:42 | RADRPT ---
Vent Rate: 66 bpm RR Interval: 0 msec CA Interval: 116 msec QRS Duration: 80 msec QT Interval: 482 msec QTC Interval: 505 msec P-R-T [place]: 35 - -4 - 0 degrees Normal sinus rhythm RSR apos; orattern in V1 suggests right ventricular conduction delay Minimal voltage criteria for LVH, may be normal variant ST amp; T wave abnormality, consider inferior ischemia ST amp; T wave abnormality, consider anterolateral ischemia Prolonged QT Abnormal ECG Electronically Signed By: Larry Paulino [id number]
--- NOTE | 2017-04-15 15:08 | PN ---
Date/Time of Note Date/Time of Note DATE: 04/15/17 TIME: 14:55 Assessment/Plan VTE Prophylaxis VTE Prophylaxis Intervention: SCD's Lines/Catheters IV Catheter Type (from Nrsg): PICC Line Central line still needed: Yes Urinary Cath still in place: No Assessment/Plan Chief Complaint/Hosp Course s: 12.4 patient able to mouth words, spoke with over the phone 12.5 spoke with , patient has no acute complaints, similar complaints including major secretions o: Physical exam General: Patient is laying in bed , peg/trach, unable to speak 2/2 trach Mentation: Patient is alert and oriented 4 Head: Normocephalic atraumatic Eyes: EOMI, pupils reactive to light Neck: Supple, nontender, midline Respiratory: Clear to auscultation bilaterally Cardiovascular: regular rate, no obvious murmurs Gastrointestinal: non-tender to palpation, bowel sounds heard. peg tube Neurological: Moves all extremities spontaneously Skin: No new skin lesions Assessment/Plan Peg tube dysfunction -called GI, Dr. Ibarra as [facility] list, cancelled Dr. Reis consultation -due to excessive leakage, had to hold tube feeds, GI recs appreciated -area erythematous, will need betadine and constant cleaning at SNF in the future -culture ordered Coffee Ground Leakage -per night nursing -GI to evaluate peg tube, also to evaluate ? GI bleed -patient has extensive hiatal hernia surgery history, spoke with provider at [facility] , recent surgery done in september. Stitches still present on patient's left flank, patient's healthcare group and provider at [facility] notified, who will make arrangements that the surgeon who performed surgery will see patient in SNF to address -monitor hgb, questionable GI bleed due to low hgb -patient has history of coffee ground leakage per SNF provider -pending GI recs Acute respiratory distress secondary to low hgb and HF - likely 2/2 low hgb and component of heart failure -cardiology consulted, bnp elevated -will increase lasix -abx likely uncessary, less likely chance of PNA, given recent treatment of PNA , images seen on CT/xray likely sequelae of recent PNA s/p treatment. -spoke with physicians at [facility], patient has known small bilateral effusions and has chronic severe secretions, which is the main reason she can not be taken off the trach. UTI -gram neg catarina -ceftriaxone started Leukocytosis secondary to #1 -resolved Anemia secondary to chronic disease vs iron deficiency - will check iron studies, low, starting iron supplements - FOBT negative in ED Dehydration -resolved -free water through the peg tube once fixed, IV for now, low due to volume overload Hypertension - continue home medications hypothyroidism - Continue on home levothyroxine Chronic Trach/PEG - placed CM consult for evaluation for [place] [facility] for trach capping trial once stable for discharge Nondisplaced fractures of ribs -chronic, monitor Thrombocytosis - most likely reactive Cardiomegaly on CXR - Will order ECHO to further assess -cardiology evaluated patient -made adjustments dispo -GI consult, Dr. Ibarra pending for peg tube malfunction -DC to SNF when stable and GI bleed/peg tube malfunction addressed Problems: Exam/Review of Systems Vital Signs Vitals Vital Signs Date Time Temp Pulse Resp B/P Pulse Ox O2 Delivery O2 Flow Rate FiO2 04/15/17 12:00 70 04/15/17 11:42 98.0 20 130/81 94 04/15/17 08:15 Aerosol 28 T Tube 04/15/17 05:30 5.0 Intake and Output 04/14/17 04/14/17 04/15/17 15:00 23:00 07:00 Intake Total 520 ml Output Total 1200 ml Balance -1200 ml 520 ml Results Result Diagram: 04/15/17 0710 04/15/17 0710 Results 24 hrs Laboratory Tests Test 04/14/17 16:45 04/15/17 06:27 04/15/17 07:10 Urine Color YELLOW Urine Clarity CLEAR Urine pH 6.0 Urine Specific [place] 1.030 Urine Ketones NEGATIVE Urine Nitrite NEGATIVE Urine Bilirubin NEGATIVE Urine Urobilinogen NEGATIVE Urine Leukocyte Esterase TRACE A Urine Microscopic RBC 1 Urine Microscopic WBC 27 H Urine Hemoglobin NEGATIVE Urine Glucose NEGATIVE Urine Total Protein 1+ H Lab Scanned Report BLOOD TRANSFUSION White Blood Count 10.0 # Red Blood Count 3.11 #L Hemoglobin 9.0 #L Hematocrit 28.1 #L Mean Corpuscular Volume 90.4 Mean Corpuscular Hemoglobin 28.9 L Mean Corpuscular Hemoglobin Concent 32.0 Red Cell Distribution Width 17.0 H Platelet Count 503 H Mean Platelet Volume 10.5 H Neutrophils % 90.1 H Lymphocytes % 5.9 L Monocytes % 3.1 Eosinophils % 0.0 Basophils % 0.1 Nucleated Red Blood Cells % 0.0 Neutrophils # 9.0 H Lymphocytes # 0.6 L Monocytes # 0.3 Eosinophils # 0.0 Basophils # 0.0 Nucleated Red Blood Cells # 0.0 Sodium Level 138 Potassium Level 3.8 Chloride Level 100 Carbon Dioxide Level 32 H Anion Gap 10 Blood Urea Nitrogen 29 H Creatinine 0.68 Glucose Level 145 Calcium Level 8.0 L Phosphorus Level 3.7 Magnesium Level 2.0 Albumin 2.7 L Medications Medications Current Medications Alprazolam (Xanax) 0.5 mg Q8H PRN GTB ANXIETY Last administered on 04/14/17 15 :57; Admin Dose 0.5 MG; Start 04/13/17 at 15:30 Amiodarone HCl (Cordarone) 200 mg DAILY GTB Last administered on 04/14/17 09: 58; Admin Dose 200 MG; Start 04/14/17 at 09:00 Aspirin (Halfprin) 81 mg DAILY PO Last administered on 04/14/17 10:00; Admin Dose 81 MG; Start 04/14/17 at 09:00 Atorvastatin Calcium (Lipitor) 40 mg QHS GTB Last administered on 04/13/17 20: 15; Admin Dose 40 MG; Start 04/13/17 at 21:00 Carvedilol (Coreg) 6.25 mg BID GTB Last administered on 04/14/17 09:57; Admin Dose 6.25 MG; Start 04/13/17 at 21:00 Losartan Potassium (Cozaar) 50 mg DAILY GTB Last administered on 04/14/17 09: 54; Admin Dose 50 MG; Start 04/14/17 at 09:00 Multivitamins Therapeutic (Theragran) 1 tab DAILY GTB Last administered on 04/14 10:01; Admin Dose 1 TAB; Start 04/14/17 at 09:00 Quetiapine Fumarate (Seroquel) 25 mg HS GTB Last administered on 04/13/17 20: 15; Admin Dose 25 MG; Start 04/13/17 at 21:00 Ferrous Sulfate (Feosol Liquid Cup) 220 mg BID GTB Last administered on 10:02; Admin Dose 220 MG; Start 04/13/17 at 21:00 Lactobacillus Acidophilus/ Rhamnosus (Culturelle) 1 cap TID PO Last administered on 04/15/17 13:16; Admin Dose 1 CAP; Start 04/13/17 at 21:00 Ondansetron HCl (Zofran Inj) 4 mg Q4H PRN IV NAUSEA AND/OR VOMITING; Start 04/13/17 at 15:30 Acetaminophen (Tylenol Tab) 650 mg Q6H PRN PO PAIN LEVEL 1-3 OR FEVER; Start 04/13/17 at 15:30 Methylprednisolone Sodium Succinate (Solu-Medrol) 80 mg Q8 IV Last administered on 04/15/17 13:16; Admin Dose 80 MG; Start 04/14/17 at 14:00 Ferrous Sulfate (Slow Fe) 142 mg BID PO ; Start 04/14/17 at 21:00 Ascorbic Acid (Vitamin C) 500 mg BID PO ; Start 04/14/17 at 21:00 Lansoprazole 30 mg 30 mg DAILY@06 NGT ; Start 04/15/17 at 06:00 Dextrose/Sodium Chloride (D5-1/2ns) 1,000 ml @ 40 mls/hr Q24H IV Last administered on 04/14/17 23:45; Admin Dose 75 MLS/HR; Start 04/14/17 at 23:30 Furosemide (Lasix) 20 mg DAILY IV Last administered on 04/15/17 12:03; Admin Dose 20 MG; Start 04/15/17 at 11:00 ERIC COOLEY Apr 15, 2017 15:05
[2017-04-15] MEDS: DEXTROSE 5%-0.45% NACL 1,000 ML IV SCH (16:14)
[2017-04-15] MEDS: CEFTRIAXONE 1 GM/50 ML (PMX) 50 ML IVPB SCH (16:14)
[2017-04-15 17:30] LABS: PATH REVIEW CH
[2017-04-15] MEDS: ALBUTEROL 0.083% (NEB) 2.5 MG/3 ML AMP HHN PRN (20:27)
[2017-04-15] MEDS: QUETIAPINE 25 MG TAB GTB SCH (22:47)
[2017-04-15] MEDS: ATORVASTATIN 40 MG TAB GTB SCH (22:47)
[2017-04-16] VITALS (14 sets, daily range): BP systolic 134–186; BP diastolic 70–106; PULSE 46–110; RESP 18–22
[2017-04-16] MEDS: ACETAMINOPHEN 325 MG TAB PO PRN (01:14)
[2017-04-16] MEDS: LEVOTHYROXINE 100 MCG TAB GTB SCH (05:13)
[2017-04-16] MEDS: METHYLPREDNISOLONE 40 MG INJ IV SCH ×3 (05:13→23:08)
[2017-04-16] MEDS: LANSOPRAZOLE 30 MG CAP NGT SCH (05:13)
[2017-04-16 07:21] LABS: ABNORMAL IP MESSAGE 1; HEMATOCRIT 26.6 % (37.0-47.0); HEMOGLOBIN 8.8 g/dl (12.0-16.0); LYMPHOCYTES # 0.3 10^3/ul (0.8-2.9); LYMPHOCYTES % 4.4 % (15.0-51.0); MEAN CORPUSCULAR HEMOGLOBIN 29.5 pg (29.0-33.0); MEAN CORPUSCULAR HGB CONC 33.1 g/dl (32.0-37.0); MEAN CORPUSCULAR VOLUME 89.3 fl (82.0-101.0); MEAN PLATELET VOLUME 10.6 fl (7.4-10.4); MONOCYTE # 0.2 10^3/ul (0.3-0.9); MONOCYTES % 2.7 % (0.0-11.0); NEUTROPHIL # 6.7 10^3/ul (1.6-7.5); NEUTROPHILS % 92.2 % (39.0-77.0); PLATELET COUNT 440 10^3/UL (140-415); RED BLOOD COUNT 2.98 10^6/ul (4.20-5.40); WHITE BLOOD COUNT 7.3 10^3/ul (4.8-10.8)
[2017-04-16 07:25] LABS: POSITIVE DIFF @See below
[2017-04-16 07:56] LABS: ALBUMIN 2.5 g/dl (3.3-4.9); CALCIUM 8.2 mg/dl (8.4-10.2); CREATININE 0.76 mg/dl (0.44-1.00); MAGNESIUM 1.9 mg/dl (1.7-2.5); PHOSPHORUS 4.1 mg/dl (2.5-4.9); POTASSIUM 3.3 mmol/L (3.5-5.1)
[2017-04-16] MEDS: ALBUTEROL/IPRATROPIUM (NEB) 3 ML AMP INH SCH ×4 (09:00→21:19)
[2017-04-16] MEDS: FERROUS SULFATE 60 MG/ML 5ML CUP GTB SCH ×2 (09:00→22:24)
[2017-04-16] MEDS: ASPIRIN (EC) 81 MG TAB PO SCH (09:00)
[2017-04-16] MEDS: ASCORBIC ACID 500 MG TAB PO SCH ×2 (09:00→22:25)
[2017-04-16] MEDS: LOSARTAN 50 MG TAB GTB SCH (09:00)
[2017-04-16] MEDS: FERROUS SULFATE (SR) 142 MG TAB PO SCH ×2 (09:00→22:25)
[2017-04-16] MEDS: LACTOBACILLUS RHAMNOSUS CAP PO SCH ×3 (09:00→22:25)
[2017-04-16] MEDS: MULTIVITAMINS THERAPEUTIC TAB GTB SCH (09:00)
[2017-04-16] MEDS: AMIODARONE 200 MG TAB GTB SCH (09:00)
[2017-04-16] MEDS: FUROSEMIDE 20 MG INJ IV SCH (09:01)
[2017-04-16] MEDS ORDERED: BARIUM SULF 2% 450 ML BTL (BERRY SMOOTHIE) PO ONE (10:00)
--- NOTE | 2017-04-16 10:31 | CONS ---
Date/Time of Note Date/Time of Note DATE: 04/16/17 TIME: 10:29 Assessment/Plan Assessment/Plan Chief Complaint/Hosp Course Consultation dictated #[id number]. Continue current treatment. Problems: Additional Assessment/Plan Assessment and recommendations; 1. Patient admitted with shortness of breath which likely is from underlying mild CHF with possibly superimposed chronic bronchitis. 2. Significant interstitial lung disease. 3. History of diaphragmatic hernia repair leading to respiratory failure subsequently requiring a tracheostomy. Patient however doing very well from a pulmonary standpoint. 4. History of hypothyroidism. 5. History of cardiac arrhythmia. Continue current treatment. Consider discharge. Consultation Date/Type/Reason Admit Date/Time Apr 13, 2017 at 13:23 Initial Consult Date 04/15/17 Type of Consultation: Pulmonary 24 HR Interval Summary Free Text/Dictation Patient's condition is stable. Remains awake and alert. Complains of scant cough with scant brown sputum production. Denies any fever or chills. General exam; elderly woman, awake alert, doing well on T-piece via tracheostomy. Exam/Review of Systems Vital Signs Vitals Vital Signs Date Time Temp Pulse Resp B/P Pulse Ox O2 Delivery O2 Flow Rate FiO2 04/16/17 09:40 84 20 98 Aerosol 5.0 28 Aerosol Mask 04/16/17 07:38 97.8 154/81 Intake and Output 04/15/17 04/15/17 04/16/17 14:59 22:59 06:59 Intake Total 40 ml 30 ml Balance 40 ml 30 ml Exam HEENT exam; supple neck, no JVD. No lymphadenopathy. Midline trachea. No thyromegaly. Tracheostomy in place. Chest exam; diminished breath sounds bilaterally. No added sounds. S1-S2 audible, no murmurs. Regular rhythm. Abdomen exam; soft, multiple healed scars are present. PEG tube in place. Bowel sounds audible. Abdomen is nontender. Extremity exam; no edema. COUNTER ROLLER exam; no focal deficit. Results Result Diagram: 04/16/17 0655 04/16/17 0655 Results 24 hrs Laboratory Tests Test 04/16/17 06:55 White Blood Count 7.3 # Red Blood Count 2.98 L Hemoglobin 8.8 L Hematocrit 26.6 L Mean Corpuscular Volume 89.3 Mean Corpuscular Hemoglobin 29.5 Mean Corpuscular Hemoglobin Concent 33.1 Red Cell Distribution Width 17.0 H Platelet Count 440 H Mean Platelet Volume 10.6 H Neutrophils % 92.2 H Lymphocytes % 4.4 L Monocytes % 2.7 Eosinophils % 0.0 Basophils % 0.0 Nucleated Red Blood Cells % 0.0 Neutrophils # 6.7 Lymphocytes # 0.3 L Monocytes # 0.2 L Eosinophils # 0.0 Basophils # 0.0 Nucleated Red Blood Cells # 0.0 Sodium Level 138 Potassium Level 3.3 L Chloride Level 97 Carbon Dioxide Level 34 H Anion Gap 10 Blood Urea Nitrogen 33 H Creatinine 0.76 Glucose Level 135 Calcium Level 8.2 L Phosphorus Level 4.1 Magnesium Level 1.9 Albumin 2.5 L Medications Medications Current Medications Alprazolam (Xanax) 0.5 mg Q8H PRN GTB ANXIETY Last administered on 04/14/17 15 :57; Admin Dose 0.5 MG; Start 04/13/17 at 15:30 Amiodarone HCl (Cordarone) 200 mg DAILY GTB Last administered on 04/14/17 09: 58; Admin Dose 200 MG; Start 04/14/17 at 09:00 Aspirin (Halfprin) 81 mg DAILY PO Last administered on 04/14/17 10:00; Admin Dose 81 MG; Start 04/14/17 at 09:00 Atorvastatin Calcium (Lipitor) 40 mg QHS GTB Last administered on 04/13/17 20: 15; Admin Dose 40 MG; Start 04/13/17 at 21:00 Carvedilol (Coreg) 6.25 mg BID GTB Last administered on 04/14/17 09:57; Admin Dose 6.25 MG; Start 04/13/17 at 21:00 Losartan Potassium (Cozaar) 50 mg DAILY GTB Last administered on 04/14/17 09: 54; Admin Dose 50 MG; Start 04/14/17 at 09:00 Multivitamins Therapeutic (Theragran) 1 tab DAILY GTB Last administered on 04/14 10:01; Admin Dose 1 TAB; Start 04/14/17 at 09:00 Quetiapine Fumarate (Seroquel) 25 mg HS GTB Last administered on 04/13/17 20: 15; Admin Dose 25 MG; Start 04/13/17 at 21:00 Ferrous Sulfate (Feosol Liquid Cup) 220 mg BID GTB Last administered on 10:02; Admin Dose 220 MG; Start 04/13/17 at 21:00 Lactobacillus Acidophilus/ Rhamnosus (Culturelle) 1 cap TID PO Last administered on 04/15/17 13:16; Admin Dose 1 CAP; Start 04/13/17 at 21:00 Ondansetron HCl (Zofran Inj) 4 mg Q4H PRN IV NAUSEA AND/OR VOMITING; Start 04/13/17 at 15:30 Acetaminophen (Tylenol Tab) 650 mg Q6H PRN PO PAIN LEVEL 1-3 OR FEVER Last administered on 04/16/17 01:14; Admin Dose 650 MG; Start 04/13/17 at 15:30 Methylprednisolone Sodium Succinate (Solu-Medrol) 80 mg Q8 IV Last administered on 04/16/17 05:13; Admin Dose 80 MG; Start 04/14/17 at 14:00 Ferrous Sulfate (Slow Fe) 142 mg BID PO ; Start 04/14/17 at 21:00 Ascorbic Acid 500 mg 500 mg BID PO ; Start 04/14/17 at 21:00 Dextrose/Sodium Chloride (D5-1/2ns) 1,000 ml @ 40 mls/hr Q24H IV Last administered on 04/15/17 16:14; Admin Dose 40 MLS/HR; Start 04/14/17 at 23:30 Furosemide 20 mg 20 mg DAILY IV Last administered on 04/16/17 09:01; Admin Dose 20 MG; Start 04/15/17 at 11:00 Ceftriaxone Sodium (Rocephin) 50 ml @ 100 mls/hr Q24H IVPB Last administered on 04/15/17 16:14; Admin Dose 100 MLS/HR; Start 04/15/17 at 16:00 Pantoprazole (Protonix Iv) 40 mg BID@06,18 IV ; Start 04/16/17 at 18:00 Morphine Sulfate 2 mg 2 mg Q6H PRN IV PAIN LEVEL 6-10; Start 04/16/17 at 10:00 Potassium Chloride (KCl 40 MEQ/250 ML NS) 250 ml @ 62.5 mls/hr ONCE ONCE IVPB ; Start 04/16/17 at 11:00; Stop 04/16/17 at 14:59 ALLISON DONOHUE Apr 16, 2017 10:31
[2017-04-16] MEDS ORDERED: POTASSIUM CHLORIDE 250 ML IVPB ONE (11:00)
[2017-04-16] MEDS ORDERED: hydrALAzine 20 MG INJ IV ONE (12:00)
[2017-04-16] MEDS: LORAZEPAM 2 MG INJ IV PRN ×2 (13:02→22:29)
--- NOTE | 2017-04-16 13:18 | RADRPT ---
PROCEDURE: CT Abdomen without contrast. CLINICAL INDICATION: Abdominal pain. Rule out abscess. TECHNIQUE: CT scan of the abdomen without contrast was performed on a multidetector high-resolutio n CT scanner. The patient was scanned without intravenous contrast. Coronal and sagittal reformatte d images were obtained from the axial source images. Images were reviewed on a high-resolution PACS workstation. The total exam CTDI equals 7.4 mGy and the total exam DLP equals 311.6 mGy-cm. One or more of the following dose reduction techniques were used: Automated exposure control. Adjustment of the mA and/or kV according to patient size. Use of iterative reconstruction technique. DICOM images are available. COMPARISON: None FINDINGS: CT abdomen: Bilateral lower lobe consolidation and bilateral pleural effusions. There appears to be a loculated small left inferior pleural effusion, with thickening of the pleura. Pleural calcifications noted as well. Hepatic morphology is within normal limits. The gallbladder appears to within limits. No evidence of intrahepatic or traumatic dilatation. Multiple hepatic cysts are identified. The spleen and pancreas are within normal limits. Both adrenal glands are within normal limits. Both kidneys are and normal anatomic position. There is bilateral perinephric fluid. No evidence of obstruction or hydronephrosis. There is a large hiatal hernia, containing stomach and transverse colon. No evidence of bowel obstru ction. Percutaneous gastrostomy tube is noted within the stomach. There is no evidence of bowel obst ruction. The unenhanced aorta demonstrates mild atherosclerotic calcifications. There is no significant retro peritoneal lymphadenopathy. IMPRESSION: 1. Bilateral pleural effusions and bilateral lower lobe consolidation. Probably atelectasis, however cannot exclude pneumonia in the appropriate clinical setting. There is a small loculated inferior l eft pleural effusion, with thickening of the pleura and small calcification. Cannot exclude the poss ibility of a small empyema. 2. Mild perihepatic ascites. 3. No evidence of bowel obstruction. 4. No definitive intra-abdominal focal fluid collections noted at this time. 5. Percutaneous gastrostomy tube in place. 6. Large hiatal hernia, containing mesenteric fat, stomach, and transverse colon. RPTAT: AARR Jasony Lue, Physician Date Time Electronically viewed and signed by Gunner Gayle Physician on 04/16/2017 13:17 JL/
[2017-04-16 13:52] LABS: ADD UMIC YES; UR ASCORBIC ACID 40 mg/dL (NEGATIVE); UR BILIRUBIN (Dip) NEGATIVE (NEGATIVE); UR BLOOD (Dip) NEGATIVE (NEGATIVE); UR CLARITY SLIGHTLY CLOUDY (CLEAR); UR COLOR YELLOW (YELLOW); UR GLUCOSE (Dip) 1+ mg/dL (NEGATIVE); UR KETONES (Dip) NEGATIVE (NEGATIVE); UR LEUKOCYTE ESTERASE (Dip) TRACE Leu/ul (NEGATIVE); UR NITRITE (Dip) NEGATIVE (NEGATIVE); UR RBC 2 /HPF (0-5); UR SPECIFIC GRAVITY (Dip) 1.032 (1.003-1.030); UR TOTAL PROTEIN (Dip) 1+ mg/dl (NEGATIVE); UR UROBILINOGEN (Dip) NEGATIVE (NEGATIVE)
[2017-04-16] MEDS ORDERED: hydrALAzine 20 MG INJ IV PRN (14:30)
--- NOTE | 2017-04-16 15:03 | CONS ---
Date/Time of Note Date/Time of Note DATE: 04/16/17 TIME: 15:02 Assessment/Plan Assessment/Plan Additional Assessment/Plan Acute blood loss anemia Mild acute decompensated congestive heart failure Chronic respiratory failure Paroxysmal atrial fibrillation Hypertension -Patient currently not receiving medications via PEG secondary to possible issues with PEG. Given elevated blood pressure, would start IV hydralazine in the interim, continue IV Lasix, supplement potassium and magnesium. Remains in sinus rhythm on telemetry. Consultation Date/Type/Reason Admit Date/Time Apr 13, 2017 at 13:23 Initial Consult Date 04/15/17 Type of Consultation: cv 24 HR Interval Summary Free Text/Dictation Patient seen and examined, denies shortness of breath Exam/Review of Systems Vital Signs Vitals Vital Signs Date Time Temp Pulse Resp B/P Pulse Ox O2 Delivery O2 Flow Rate FiO2 04/16/17 13:59 5.0 28 04/16/17 13:45 86 20 97 Aerosol 04/16/17 11:49 173/89 04/16/17 11:40 97.5 Intake and Output 04/15/17 04/15/17 04/16/17 14:59 22:59 06:59 Intake Total 40 ml 30 ml Balance 40 ml 30 ml Exam Constitutional: alert, oriented Head: normocephalic Neck: other (Tracheostomy) Respiratory: other (Coarse breath sounds bilaterally, no wheezing) Cardiovascular: other (S1-S2 heard), regular rate and rhythm Gastrointestinal: bowel sounds, non-tender, soft Extremities: edema Results Result Diagram: 04/16/17 0655 04/16/17 0655 Results 24 hrs Laboratory Tests Test 04/16/17 06:55 04/16/17 10:05 White Blood Count 7.3 # Red Blood Count 2.98 L Hemoglobin 8.8 L Hematocrit 26.6 L Mean Corpuscular Volume 89.3 Mean Corpuscular Hemoglobin 29.5 Mean Corpuscular Hemoglobin Concent 33.1 Red Cell Distribution Width 17.0 H Platelet Count 440 H Mean Platelet Volume 10.6 H Neutrophils % 92.2 H Lymphocytes % 4.4 L Monocytes % 2.7 Eosinophils % 0.0 Basophils % 0.0 Nucleated Red Blood Cells % 0.0 Neutrophils # 6.7 Lymphocytes # 0.3 L Monocytes # 0.2 L Eosinophils # 0.0 Basophils # 0.0 Nucleated Red Blood Cells # 0.0 Sodium Level 138 Potassium Level 3.3 L Chloride Level 97 Carbon Dioxide Level 34 H Anion Gap 10 Blood Urea Nitrogen 33 H Creatinine 0.76 Glucose Level 135 Calcium Level 8.2 L Phosphorus Level 4.1 Magnesium Level 1.9 Albumin 2.5 L Stool Occult Blood NEGATIVE Medications Medications Current Medications Alprazolam (Xanax) 0.5 mg Q8H PRN GTB ANXIETY Last administered on 04/14/17 15 :57; Admin Dose 0.5 MG; Start 04/13/17 at 15:30 Amiodarone HCl (Cordarone) 200 mg DAILY GTB Last administered on 04/14/17 09: 58; Admin Dose 200 MG; Start 04/14/17 at 09:00 Aspirin (Halfprin) 81 mg DAILY PO Last administered on 04/14/17 10:00; Admin Dose 81 MG; Start 04/14/17 at 09:00 Atorvastatin Calcium (Lipitor) 40 mg QHS GTB Last administered on 04/13/17 20: 15; Admin Dose 40 MG; Start 04/13/17 at 21:00 Carvedilol (Coreg) 6.25 mg BID GTB Last administered on 04/14/17 09:57; Admin Dose 6.25 MG; Start 04/13/17 at 21:00 Losartan Potassium (Cozaar) 50 mg DAILY GTB Last administered on 04/14/17 09: 54; Admin Dose 50 MG; Start 04/14/17 at 09:00 Multivitamins Therapeutic (Theragran) 1 tab DAILY GTB Last administered on 04/14 10:01; Admin Dose 1 TAB; Start 04/14/17 at 09:00 Quetiapine Fumarate (Seroquel) 25 mg HS GTB Last administered on 04/13/17 20: 15; Admin Dose 25 MG; Start 04/13/17 at 21:00 Ferrous Sulfate (Feosol Liquid Cup) 220 mg BID GTB Last administered on 10:02; Admin Dose 220 MG; Start 04/13/17 at 21:00 Lactobacillus Acidophilus/ Rhamnosus (Culturelle) 1 cap TID PO Last administered on 04/15/17 13:16; Admin Dose 1 CAP; Start 04/13/17 at 21:00 Ondansetron HCl (Zofran Inj) 4 mg Q4H PRN IV NAUSEA AND/OR VOMITING; Start 04/13/17 at 15:30 Acetaminophen (Tylenol Tab) 650 mg Q6H PRN PO PAIN LEVEL 1-3 OR FEVER Last administered on 04/16/17 01:14; Admin Dose 650 MG; Start 04/13/17 at 15:30 Methylprednisolone Sodium Succinate (Solu-Medrol) 80 mg Q8 IV Last administered on 04/16/17 14:25; Admin Dose 80 MG; Start 04/14/17 at 14:00 Ferrous Sulfate (Slow Fe) 142 mg BID PO ; Start 04/14/17 at 21:00 Ascorbic Acid 500 mg 500 mg BID PO ; Start 04/14/17 at 21:00 Dextrose/Sodium Chloride (D5-1/2ns) 1,000 ml @ 40 mls/hr Q24H IV Last administered on 04/15/17 16:14; Admin Dose 40 MLS/HR; Start 04/14/17 at 23:30 Furosemide 20 mg 20 mg DAILY IV Last administered on 04/16/17 09:01; Admin Dose 20 MG; Start 04/15/17 at 11:00 Ceftriaxone Sodium (Rocephin) 50 ml @ 100 mls/hr Q24H IVPB Last administered on 04/15/17 16:14; Admin Dose 100 MLS/HR; Start 04/15/17 at 16:00 Pantoprazole (Protonix Iv) 40 mg BID@06,18 IV ; Start 04/16/17 at 18:00 Morphine Sulfate (morphine) 2 mg Q6H PRN IV PAIN LEVEL 6-10; Start 04/16/17 at 10:00 Lorazepam (Ativan) 0.5 mg Q6H PRN IV ANXIETY Last administered on 04/16/17 13: 02; Admin Dose 0.5 MG; Start 04/16/17 at 13:00 Hydralazine HCl (Apresoline) 10 mg Q4H PRN IV sbp>160; Start 04/16/17 at 14:30 Ernesto Jon DO Apr 16, 2017 15:03
[2017-04-16] MEDS: morphine 2 MG INJ IV PRN (15:29)
[2017-04-16] MEDS: DEXTROSE 5%-0.45% NACL 1,000 ML IV SCH (15:42)
[2017-04-16] MEDS: CEFTRIAXONE 1 GM/50 ML (PMX) 50 ML IVPB SCH (15:45)
[2017-04-16] MEDS ORDERED: VANCOMYCIN IV PER PHARMACY XX SCH (17:00)
--- NOTE | 2017-04-16 17:02 | PN ---
Date/Time of Note Date/Time of Note DATE: 04/16/17 TIME: 16:53 Assessment/Plan VTE Prophylaxis VTE Prophylaxis Intervention: SCD's Lines/Catheters Urinary Cath still in place: No Assessment/Plan Chief Complaint/Hosp Course 1. Peg tube dysfunction -Follow-up with Dr. Ibarra recommendations -Follow-up on barium study -due to excessive leakage, had to hold tube feeds, GI recs appreciated -area erythematous, will need betadine and constant cleaning at [facility] in the future -culture ordered 2. Coffee Ground Leakage -per night nursing -GI to evaluate peg tube -patient has extensive hiatal hernia surgery history, spoke with provider at [facility] , recent surgery done in september. Stitches still present on patient's left flank, patient's healthcare group and provider at [facility] notified, who will make arrangements that the surgeon who performed surgery will see patient in SNF to address -monitor hgb, questionable GI bleed due to low hgb -patient has history of coffee ground leakage per SNF provider -pending GI recs 3. Acute respiratory distress secondary to low hgb and HF - likely 2/2 low hgb and component of heart failure -cardiology consulted, bnp elevated -Continue Lasix -spoke with physicians at [facility], patient has known small bilateral effusions and has chronic severe secretions, which is the main reason she can not be taken off the trach. 4. UTI secondary to multidrug-resistant Klebsiella and enterococcus -Add colistin for Klebsiella -Vancomycin added for enterococcus -ID consultation obtained 5. Anemia secondary to chronic disease - FOBT negative 6. Dehydration -resolved -free water through the peg tube once fixed, IV for now, low due to volume overload 7. Hypertension - continue home medications when able 8. Hypothyroidism - Continue on home levothyroxine unable 9. Chronic Trach/PEG - placed CM consult for evaluation for [facility] for trach capping trial once stable for discharge 10. Nondisplaced fractures of ribs -chronic, monitor 11. Thrombocytosis - most likely reactive Prophylaxis: SCDs DC planning:-DC to SNF when stable and GI bleed/peg tube malfunction addressed Problems: Subjective 24 Hr Interval Summary Subjective hx not possible: pt non-verbal Exam/Review of Systems Vital Signs Vitals Vital Signs Date Time Temp Pulse Resp B/P Pulse Ox O2 Delivery O2 Flow Rate FiO2 04/16/17 16:01 98.0 94 22 153/86 96 04/16/17 15:46 Aerosol 5.0 28 Intake and Output 04/15/17 04/15/17 04/16/17 15:00 23:00 07:00 Intake Total 40 ml 30 ml Balance 40 ml 30 ml Exam Constitutional: non-verbal Respiratory: clear to auscultation Cardiovascular: regular rate and rhythm Gastrointestinal: soft, No distended Musculoskeletal: nl extremities to inspection Results Result Diagram: 04/16/17 0655 04/16/17 0655 Results 24 hrs Laboratory Tests Test 04/16/17 06:55 04/16/17 10:05 White Blood Count 7.3 # Red Blood Count 2.98 L Hemoglobin 8.8 L Hematocrit 26.6 L Mean Corpuscular Volume 89.3 Mean Corpuscular Hemoglobin 29.5 Mean Corpuscular Hemoglobin Concent 33.1 Red Cell Distribution Width 17.0 H Platelet Count 440 H Mean Platelet Volume 10.6 H Neutrophils % 92.2 H Lymphocytes % 4.4 L Monocytes % 2.7 Eosinophils % 0.0 Basophils % 0.0 Nucleated Red Blood Cells % 0.0 Neutrophils # 6.7 Lymphocytes # 0.3 L Monocytes # 0.2 L Eosinophils # 0.0 Basophils # 0.0 Nucleated Red Blood Cells # 0.0 Sodium Level 138 Potassium Level 3.3 L Chloride Level 97 Carbon Dioxide Level 34 H Anion Gap 10 Blood Urea Nitrogen 33 H Creatinine 0.76 Glucose Level 135 Calcium Level 8.2 L Phosphorus Level 4.1 Magnesium Level 1.9 Albumin 2.5 L Stool Occult Blood NEGATIVE Medications Medications Current Medications Alprazolam (Xanax) 0.5 mg Q8H PRN GTB ANXIETY Last administered on 04/14/17 15 :57; Admin Dose 0.5 MG; Start 04/13/17 at 15:30 Amiodarone HCl (Cordarone) 200 mg DAILY GTB Last administered on 04/14/17 09: 58; Admin Dose 200 MG; Start 04/14/17 at 09:00 Aspirin (Halfprin) 81 mg DAILY PO Last administered on 04/14/17 10:00; Admin Dose 81 MG; Start 04/14/17 at 09:00 Atorvastatin Calcium (Lipitor) 40 mg QHS GTB Last administered on 04/13/17 20: 15; Admin Dose 40 MG; Start 04/13/17 at 21:00 Carvedilol (Coreg) 6.25 mg BID GTB Last administered on 04/14/17 09:57; Admin Dose 6.25 MG; Start 04/13/17 at 21:00 Losartan Potassium (Cozaar) 50 mg DAILY GTB Last administered on 04/14/17 09: 54; Admin Dose 50 MG; Start 04/14/17 at 09:00 Multivitamins Therapeutic (Theragran) 1 tab DAILY GTB Last administered on 04/14 10:01; Admin Dose 1 TAB; Start 04/14/17 at 09:00 Quetiapine Fumarate (Seroquel) 25 mg HS GTB Last administered on 04/13/17 20: 15; Admin Dose 25 MG; Start 04/13/17 at 21:00 Ferrous Sulfate (Feosol Liquid Cup) 220 mg BID GTB Last administered on 10:02; Admin Dose 220 MG; Start 04/13/17 at 21:00 Lactobacillus Acidophilus/ Rhamnosus (Culturelle) 1 cap TID PO Last administered on 04/15/17 13:16; Admin Dose 1 CAP; Start 04/13/17 at 21:00 Ondansetron HCl (Zofran Inj) 4 mg Q4H PRN IV NAUSEA AND/OR VOMITING; Start 04/13/17 at 15:30 Acetaminophen (Tylenol Tab) 650 mg Q6H PRN PO PAIN LEVEL 1-3 OR FEVER Last administered on 04/16/17 01:14; Admin Dose 650 MG; Start 04/13/17 at 15:30 Methylprednisolone Sodium Succinate (Solu-Medrol) 80 mg Q8 IV Last administered on 04/16/17 14:25; Admin Dose 80 MG; Start 04/14/17 at 14:00 Ferrous Sulfate (Slow Fe) 142 mg BID PO ; Start 04/14/17 at 21:00 Ascorbic Acid 500 mg 500 mg BID PO ; Start 04/14/17 at 21:00 Dextrose/Sodium Chloride (D5-1/2ns) 1,000 ml @ 40 mls/hr Q24H IV Last administered on 04/15/17 16:14; Admin Dose 40 MLS/HR; Start 04/14/17 at 23:30 Furosemide 20 mg 20 mg DAILY IV Last administered on 04/16/17 09:01; Admin Dose 20 MG; Start 04/15/17 at 11:00 Ceftriaxone Sodium (Rocephin) 50 ml @ 100 mls/hr Q24H IVPB Last administered on 04/16/17 15:45; Admin Dose 100 MLS/HR; Start 04/15/17 at 16:00 Pantoprazole (Protonix Iv) 40 mg BID@06,18 IV ; Start 04/16/17 at 18:00 Morphine Sulfate (morphine) 2 mg Q6H PRN IV PAIN LEVEL 6-10 Last administered on 04/16/17 15:29; Admin Dose 2 MG; Start 04/16/17 at 10:00 Lorazepam (Ativan) 0.5 mg Q6H PRN IV ANXIETY Last administered on 04/16/17 13: 02; Admin Dose 0.5 MG; Start 04/16/17 at 13:00 Hydralazine HCl 10 mg 10 mg Q4H PRN IV sbp>160; Start 04/16/17 at 14:30 Potassium Chloride (KCl 10 MEQ/50 ML SW) 50 ml @ 50 mls/hr Q1H IVPB ; Start 04/16/17 at 16:30; Stop 04/16/17 at 18:29 ABE GALLOWAY Apr 16, 2017 17:02
[2017-04-16] MEDS: PANTOPRAZOLE 40 MG INJ IV SCH (17:19)
[2017-04-16] MEDS: POTASSIUM CHLORIDE 50 ML IVPB SCH ×2 (17:20→18:16)
[2017-04-16] MEDS ORDERED: VANCOMYCIN 1 GM in NS 250 ML IVPB SCH (18:30)
[2017-04-16] MEDS: ATORVASTATIN 40 MG TAB GTB SCH (22:24)
[2017-04-16] MEDS: QUETIAPINE 25 MG TAB GTB SCH (22:25)
[2017-04-16] MEDS: COLISTIMETHATE 75 MG in SOD CHLORIDE 0.9% 100 ML IVPB SCH (22:30)
--- NOTE | 2017-04-16 22:39 | CONS ---
DATE OF ADMISSION: 04/13/2017 DATE OF CONSULTATION: 04/16/2017 INFECTIOUS DISEASE CONSULTATION REASON FOR CONSULTATION: Antibiotic management. HISTORY OF PRESENT ILLNESS: Carol Ochoa is a 71-year-old female with numerous problems, who was adm itted with acute respiratory distress secondary to pneumonia versus URI and is being seen now for an tibiotic management. The patient is a 71-year-old female with a number of problems includin. Hypertension. 2. Hyperlipidemia. 3. Hypothyroidism. 4. Anemia. 5. Chronic trach and PEG for the past 6 months, following complications after routine diaphragmatic hernia repair. She had a hemoglobin of 6.6 on admission on the . Patient lives at home. She has been experienc ing cough with increased sputum production and has been blood-tinged. She has associated wheezing a s well, but denies any fever, chills, nausea, vomiting. She had labs performed in the emergency [facility]. Her hemoglobin was 6.6. The patient was recently treated for urinary tract infection. We were called essentially for management of her antibiotics. PAST SURGICAL HISTORY: Positive for cholecystectomy. She also had a trach, PEG and diaphragmatic h ernia repair. PAST MEDICAL HISTORY: Operations as outlined. FAMILY HISTORY: Noncontributory. SOCIAL HISTORY: She does not smoke, drink or abuse drugs. ALLERGIES: NONE TO PENICILLIN, SULFA OR FOODS. MEDICATIONS: Per chart. REVIEW OF SYSTEMS: As per HPI. PHYSICAL EXAMINATION: GENERAL: The patient is an elderly appearing female who is chronically ill, in no acute distress. VITAL SIGNS: Stable. She is afebrile. SKIN: Without generalized rash. HEENT: Within normal limits. NECK: She has a trach in place. Neck is supple. LYMPH NODES: None palpable. CHEST: Decreased breath sounds at the bases. HEART: Without murmur or gallop. ABDOMEN: Soft, nontender, without organosplenomegaly or masses. G-tube is in place without exudate . EXTREMITIES: Without cyanosis, clubbing or edema. RECTAL AND GENITAL: Deferred. NEUROLOGIC: No focal neurological abnormalities. LABORATORY DATA: On admission, her white count was 14.6, H and H of 7.9 and 26.2, platelet count 56 3. BUN and creatinine 22/0.72. Her glucose was random, 105. The patient was seen by numerous phys icians, including Dr. Jon for cardiology and Dr. Quick for pulmonary. IMPRESSION AND PLAN: Patient was admitted with shortness of breath, probably underlying congestive heart failure with superimposed bronchitis. With regard to her cultures, her urine culture is growi ng out Klebsiella pneumoniae, carbapenemase-resistant and Enterococcus species. The patient was on Unasyn and Azithromax, and then switched to ceftriaxone. We are going to place her on Colistin 75 m g b.i.d. and vancomycin, pharmacy to dose. Her CT scan of the abdomen shows bilateral pleural effus ions, bilateral lower lobe consolidation, probable atelectasis, cannot exclude pneumonia, mild perih epatic ascites, no evidence of bowel obstruction, percutaneous G-tube in place, large hiatal hernia. So we are going to discontinue her other antibiotics, put her on colistin and vancomycin, stop her ceftriaxone. I will dictate my findings to the hospitalist, and also to the consultants Dr. Quick, Dr. Jon. Dictated By: HANSEL GIBBONS MD, JD/NTS Conf#: [id number] DID#: [id number] CC: BRITTNEY JON DO; OLE DAO MD; ALLISON QUICK MD;*End*
[2017-04-17] VITALS (12 sets, daily range): BP systolic 135–156; BP diastolic 62–93; PULSE 50–64; RESP 16–22
[2017-04-17] MEDS: METHYLPREDNISOLONE 40 MG INJ IV SCH ×2 (05:24→20:46)
[2017-04-17] MEDS: PANTOPRAZOLE 40 MG INJ IV SCH ×2 (05:24→18:05)
[2017-04-17] MEDS: LEVOTHYROXINE 100 MCG TAB GTB SCH (06:03)
[2017-04-17] MEDS ORDERED: VANCOMYCIN 500MG/NS (PMX) 100 ML IVPB SCH ×2 (08:00→10:00)
[2017-04-17] MEDS: ALBUTEROL/IPRATROPIUM (NEB) 3 ML AMP INH SCH ×4 (08:51→21:47)
[2017-04-17 09:00] LABS: ABNORMAL IP MESSAGE 1; BASOPHILS % 0.1 % (0.0-2.0); HEMATOCRIT 27.8 % (37.0-47.0); HEMOGLOBIN 8.9 g/dl (12.0-16.0); LYMPHOCYTES # 0.3 10^3/ul (0.8-2.9); LYMPHOCYTES % 2.7 % (15.0-51.0); MEAN CORPUSCULAR HEMOGLOBIN 29.4 pg (29.0-33.0); MEAN CORPUSCULAR VOLUME 91.7 fl (82.0-101.0); MEAN PLATELET VOLUME 10.6 fl (7.4-10.4); MONOCYTE # 0.5 10^3/ul (0.3-0.9); MONOCYTES % 4.1 % (0.0-11.0); NEUTROPHIL # 11.2 10^3/ul (1.6-7.5); NEUTROPHILS % 92.2 % (39.0-77.0); PLATELET COUNT 419 10^3/UL (140-415); RED BLOOD COUNT 3.03 10^6/ul (4.20-5.40); RED CELL DISTRIBUTION WIDTH 17.2 % (11.5-14.5); WHITE BLOOD COUNT 12.2 10^3/ul (4.8-10.8)
[2017-04-17 09:04] LABS: POSITIVE DIFF @See below
[2017-04-17 09:25] LABS: CALCIUM 7.7 mg/dl (8.4-10.2); CREATININE 0.67 mg/dl (0.44-1.00); POTASSIUM 3.9 mmol/L (3.5-5.1)
[2017-04-17] MEDS: FERROUS SULFATE 60 MG/ML 5ML CUP GTB SCH ×2 (09:50→20:45)
[2017-04-17] MEDS: ASPIRIN (EC) 81 MG TAB PO SCH (09:50)
[2017-04-17] MEDS: AMIODARONE 200 MG TAB GTB SCH (09:51)
[2017-04-17] MEDS: LACTOBACILLUS RHAMNOSUS CAP PO SCH ×3 (09:51→20:45)
[2017-04-17] MEDS: MULTIVITAMINS THERAPEUTIC TAB GTB SCH (09:51)
[2017-04-17] MEDS: FUROSEMIDE 20 MG INJ IV SCH (09:51)
[2017-04-17] MEDS: FERROUS SULFATE (SR) 142 MG TAB PO SCH ×2 (09:52→20:45)
[2017-04-17] MEDS: ASCORBIC ACID 500 MG TAB PO SCH ×2 (09:52→20:45)
[2017-04-17] MEDS: LOSARTAN 50 MG TAB GTB SCH (09:52)
[2017-04-17] MEDS: COLISTIMETHATE 75 MG in SOD CHLORIDE 0.9% 100 ML IVPB SCH ×2 (09:52→22:31)
[2017-04-17] MEDS: LINEZOLID 600 MG/D5W (PMX) 300 ML IVPB SCH ×2 (11:19→20:45)
--- NOTE | 2017-04-17 11:53 | CONS ---
Date/Time of Note Date/Time of Note DATE: 04/17/17 TIME: 11:51 Assessment/Plan Assessment/Plan Chief Complaint/Hosp Course Consultation dictated #[id number]. Continue current treatment. Problems: Additional Assessment/Plan Assessment and recommendations; 1. Patient admitted with shortness of breath due to mild pulmonary edema. 2. Significant underlying interstitial lung disease. 3. Status post diaphragmatic hernia repair with significant persistent hiatal hernia present on CT imaging of the abdomen. 4. Status post tracheostomy and PEG tube placement. 5. History of hypothyroidism, hypertension. 6. UTI. Currently on appropriate antibiotic regimen. Continue current supportive care. Consultation Date/Type/Reason Admit Date/Time Apr 13, 2017 at 13:23 Initial Consult Date 04/15/17 Type of Consultation: Pulmonary 24 HR Interval Summary Free Text/Dictation Patient's condition is stable. Denies any shortness of breath, wheezing, complains of chronic cough with mild brown sputum production. General exam; elderly woman, awake alert, currently in no distress. Exam/Review of Systems Vital Signs Vitals Vital Signs Date Time Temp Pulse Resp B/P Pulse Ox O2 Delivery O2 Flow Rate FiO2 04/17/17 11:48 98.1 57 20 135/77 96 04/17/17 08:52 Aerosol 5.0 28 T Tube Intake and Output 04/16/17 04/16/17 04/17/17 14:59 22:59 06:59 Intake Total 380 ml 1340 ml Balance 380 ml 1340 ml Exam HEENT exam; supple neck, positive JVD. No lymphadenopathy. Midline trachea. No thyromegaly. Tracheostomy in place. Attached to T-piece. Chest exam; diminished breath sounds on bases bilaterally. Upper lobes are fairly clear. S1-S2 audible, no murmurs. Regular rhythm. Abdomen exam; soft, PEG tube in place. No organomegaly. Various well-healed scars are present. Abdomen is nontender. No organomegaly felt. Extremity exam; no edema. [employer] TRAV[employer] CONS[employer]ANT exam; no focal motor deficit. Results Result Diagram: 04/17/1782404/17/17 0825 Results 24 hrs Laboratory Tests Test 04/17/17 08:25 White Blood Count 12.2 #H Red Blood Count 3.03 L Hemoglobin 8.9 L Hematocrit 27.8 L Mean Corpuscular Volume 91.7 Mean Corpuscular Hemoglobin 29.4 Mean Corpuscular Hemoglobin Concent 32.0 Red Cell Distribution Width 17.2 H Platelet Count 419 H Mean Platelet Volume 10.6 H Neutrophils % 92.2 H Lymphocytes % 2.7 L Monocytes % 4.1 Eosinophils % 0.0 Basophils % 0.1 Nucleated Red Blood Cells % 0.0 Neutrophils # 11.2 H Lymphocytes # 0.3 L Monocytes # 0.5 Eosinophils # 0.0 Basophils # 0.0 Nucleated Red Blood Cells # 0.0 Sodium Level 136 Potassium Level 3.9 Chloride Level 102 Carbon Dioxide Level 29 Anion Gap 9 Blood Urea Nitrogen 32 H Creatinine 0.67 Glucose Level 103 Calcium Level 7.7 L Medications Medications Current Medications Alprazolam (Xanax) 0.5 mg Q8H PRN GTB ANXIETY Last administered on 04/14/17 15 :57; Admin Dose 0.5 MG; Start 04/13/17 at 15:30 Amiodarone HCl (Cordarone) 200 mg DAILY GTB Last administered on 04/17/17 09: 51; Admin Dose 200 MG; Start 04/14/17 at 09:00 Aspirin (Halfprin) 81 mg DAILY PO Last administered on 04/17/17 09:50; Admin Dose 81 MG; Start 04/14/17 at 09:00 Atorvastatin Calcium (Lipitor) 40 mg QHS GTB Last administered on 04/16/17 22: 24; Admin Dose 40 MG; Start 04/13/17 at 21:00 Carvedilol (Coreg) 6.25 mg BID GTB Last administered on 04/17/17 09:52; Admin Dose 6.25 MG; Start 04/13/17 at 21:00 Losartan Potassium (Cozaar) 50 mg DAILY GTB Last administered on 04/17/17 09: 52; Admin Dose 50 MG; Start 04/14/17 at 09:00 Multivitamins Therapeutic (Theragran) 1 tab DAILY GTB Last administered on 04/17 09:51; Admin Dose 1 TAB; Start 04/14/17 at 09:00 Quetiapine Fumarate (Seroquel) 25 mg HS GTB Last administered on 04/16/17 22: 25; Admin Dose 25 MG; Start 04/13/17 at 21:00 Ferrous Sulfate (Feosol Liquid Cup) 220 mg BID GTB Last administered on 09:50; Admin Dose 220 MG; Start 04/13/17 at 21:00 Lactobacillus Acidophilus/ Rhamnosus (Culturelle) 1 cap TID PO Last administered on 04/17/17 09:51; Admin Dose 1 CAP; Start 04/13/17 at 21:00 Ondansetron HCl (Zofran Inj) 4 mg Q4H PRN IV NAUSEA AND/OR VOMITING; Start 04/13/17 at 15:30 Acetaminophen (Tylenol Tab) 650 mg Q6H PRN PO PAIN LEVEL 1-3 OR FEVER Last administered on 04/16/17 01:14; Admin Dose 650 MG; Start 04/13/17 at 15:30 Methylprednisolone Sodium Succinate (Solu-Medrol) 80 mg Q8 IV Last administered on 04/17/17 05:24; Admin Dose 80 MG; Start 04/14/17 at 14:00 Ferrous Sulfate (Slow Fe) 142 mg BID PO Last administered on 04/17/17 09:52; Admin Dose 142 MG; Start 04/14/17 at 21:00 Ascorbic Acid 500 mg 500 mg BID PO Last administered on 04/17/17 09:52; Admin Dose 500 MG; Start 04/14/17 at 21:00 Dextrose/Sodium Chloride (D5-1/2ns) 1,000 ml @ 40 mls/hr Q24H IV Last administered on 04/15/17 16:14; Admin Dose 40 MLS/HR; Start 04/14/17 at 23:30 Furosemide (Lasix) 20 mg DAILY IV Last administered on 04/17/17 09:51; Admin Dose 20 MG; Start 04/15/17 at 11:00 Pantoprazole (Protonix Iv) 40 mg BID@06,18 IV Last administered on 04/17/17 05 :24; Admin Dose 40 MG; Start 04/16/17 at 18:00 Morphine Sulfate (morphine) 2 mg Q6H PRN IV PAIN LEVEL 6-10 Last administered on 04/16/17 15:29; Admin Dose 2 MG; Start 04/16/17 at 10:00 Lorazepam (Ativan) 0.5 mg Q6H PRN IV ANXIETY Last administered on 04/16/17 22: 29; Admin Dose 0.5 MG; Start 04/16/17 at 13:00 Hydralazine HCl 10 mg 10 mg Q4H PRN IV sbp>160; Start 04/16/17 at 14:30 Colistimethate Sodium 75 mg/ Sodium Chloride 100 ml @ 200 mls/hr Q12 IVPB Last administered on 04/17/17 09:52; Admin Dose 200 MLS/HR; Start 04/16/17 at 21:00 Linezolid (Zyvox 600mg/D5W (Pmx)) 300 ml @ 300 mls/hr Q12 IVPB Last administered on 04/17/17 11:19; Admin Dose 300 MLS/HR; Start 04/17/17 at 11:30 ALLISON DONOHUE Apr 17, 2017 11:53
--- NOTE | 2017-04-17 12:45 | PQ ---
Date/Time of Note Date/Time of Note DATE: 04/17/17 TIME: 12:34 Physician Query Documentation Clarification Dear Dr. Jon , A review of the medical record found a need for documentation clarification. progress note - ---Mild acute decompensated congestive heart failure Echo = EF 60% , diastolic dysfunction CXR = plueral effusions BNp = [id number] Med = Furosemide Please clarify( if known ) the type of CHF. To facilitate accurate and complete coding, please gerry ( x ) the suspected diagnosis that apply: ( ) Acute Diastolic (Preserved EF) Heart Failure ( ICD10 I50.31 ) ( ) Acute Systolic (Reduced EF) Heart Failure ( ICD10 I50.21 ) ( ) Acute Combined Systolic & Diastolic Heart Failure ( ICD10 I50.41 ) ( ) Others Please provide your response by clicking edit document, making your choice ( x ), click ok/save and finally click sign. You may also document your response on your progress notes. Thank you for your time. Jonn Tran RN, BSN, CCS, CCDS, CDIP Clinical Direct Support Staff Member Health Information Management, CDI and Coding Services [phone] Room # 1525 - Coding [address]~ [address] JONN TRAN Apr 17, 2017 12:44
--- NOTE | 2017-04-17 13:18 | CONS ---
Date/Time of Note Date/Time of Note DATE: 04/17/17 TIME: 13:14 Assessment/Plan Assessment/Plan Additional Assessment/Plan Acute blood loss anemia Acute decompensated diastolic congestive heart failure Chronic respiratory failure Paroxysmal atrial fibrillation, currently sinus Hypertension -Patient currently receiving medications via PEG. Blood pressure trend improved. Change Lasix back to PEG. Consultation Date/Type/Reason Admit Date/Time Apr 13, 2017 at 13:23 Initial Consult Date 04/15/17 Type of Consultation: cv 24 HR Interval Summary Free Text/Dictation Patient overall feeling better, less shortness of breath. A speech valve in place today. Exam/Review of Systems Vital Signs Vitals Vital Signs Date Time Temp Pulse Resp B/P Pulse Ox O2 Delivery O2 Flow Rate FiO2 04/17/17 12:14 59 04/17/17 11:48 98.1 20 135/77 96 04/17/17 08:52 Aerosol 5.0 28 T Tube Intake and Output 04/16/17 04/16/17 04/17/17 15:00 23:00 07:00 Intake Total 380 ml 1340 ml Balance 380 ml 1340 ml Exam No apparent distress, at bedside Constitutional: alert, oriented Head: normocephalic Respiratory: other (Coarse breath sounds bilaterally with scattered rhonchi, no wheezing) Cardiovascular: other (S1-S2 heard), regular rate and rhythm Gastrointestinal: bowel sounds, non-tender, soft Extremities: edema (Trivial) Results Result Diagram: 04/17/17 0825 04/17/17 0825 Results 24 hrs Laboratory Tests Test 04/17/17 08:25 White Blood Count 12.2 #H Red Blood Count 3.03 L Hemoglobin 8.9 L Hematocrit 27.8 L Mean Corpuscular Volume 91.7 Mean Corpuscular Hemoglobin 29.4 Mean Corpuscular Hemoglobin Concent 32.0 Red Cell Distribution Width 17.2 H Platelet Count 419 H Mean Platelet Volume 10.6 H Neutrophils % 92.2 H Lymphocytes % 2.7 L Monocytes % 4.1 Eosinophils % 0.0 Basophils % 0.1 Nucleated Red Blood Cells % 0.0 Neutrophils # 11.2 H Lymphocytes # 0.3 L Monocytes # 0.5 Eosinophils # 0.0 Basophils # 0.0 Nucleated Red Blood Cells # 0.0 Sodium Level 136 Potassium Level 3.9 Chloride Level 102 Carbon Dioxide Level 29 Anion Gap 9 Blood Urea Nitrogen 32 H Creatinine 0.67 Glucose Level 103 Calcium Level 7.7 L Medications Medications Current Medications Alprazolam (Xanax) 0.5 mg Q8H PRN GTB ANXIETY Last administered on 04/14/17 15 :57; Admin Dose 0.5 MG; Start 04/13/17 at 15:30 Amiodarone HCl (Cordarone) 200 mg DAILY GTB Last administered on 04/17/17 09: 51; Admin Dose 200 MG; Start 04/14/17 at 09:00 Aspirin (Halfprin) 81 mg DAILY PO Last administered on 04/17/17 09:50; Admin Dose 81 MG; Start 04/14/17 at 09:00 Atorvastatin Calcium (Lipitor) 40 mg QHS GTB Last administered on 04/16/17 22: 24; Admin Dose 40 MG; Start 04/13/17 at 21:00 Carvedilol (Coreg) 6.25 mg BID GTB Last administered on 04/17/17 09:52; Admin Dose 6.25 MG; Start 04/13/17 at 21:00 Losartan Potassium (Cozaar) 50 mg DAILY GTB Last administered on 04/17/17 09: 52; Admin Dose 50 MG; Start 04/14/17 at 09:00 Multivitamins Therapeutic (Theragran) 1 tab DAILY GTB Last administered on 04/17 09:51; Admin Dose 1 TAB; Start 04/14/17 at 09:00 Quetiapine Fumarate (Seroquel) 25 mg HS GTB Last administered on 04/16/17 22: 25; Admin Dose 25 MG; Start 04/13/17 at 21:00 Ferrous Sulfate (Feosol Liquid Cup) 220 mg BID GTB Last administered on 09:50; Admin Dose 220 MG; Start 04/13/17 at 21:00 Lactobacillus Acidophilus/ Rhamnosus (Culturelle) 1 cap TID PO Last administered on 04/17/17 09:51; Admin Dose 1 CAP; Start 04/13/17 at 21:00 Ondansetron HCl (Zofran Inj) 4 mg Q4H PRN IV NAUSEA AND/OR VOMITING; Start 04/13/17 at 15:30 Acetaminophen (Tylenol Tab) 650 mg Q6H PRN PO PAIN LEVEL 1-3 OR FEVER Last administered on 04/16/17 01:14; Admin Dose 650 MG; Start 04/13/17 at 15:30 Ferrous Sulfate (Slow Fe) 142 mg BID PO Last administered on 04/17/17 09:52; Admin Dose 142 MG; Start 04/14/17 at 21:00 Ascorbic Acid 500 mg 500 mg BID PO Last administered on 04/17/17 09:52; Admin Dose 500 MG; Start 04/14/17 at 21:00 Dextrose/Sodium Chloride (D5-1/2ns) 1,000 ml @ 40 mls/hr Q24H IV Last administered on 04/15/17 16:14; Admin Dose 40 MLS/HR; Start 04/14/17 at 23:30 Furosemide (Lasix) 20 mg DAILY IV Last administered on 04/17/17 09:51; Admin Dose 20 MG; Start 04/15/17 at 11:00 Pantoprazole (Protonix Iv) 40 mg BID@06,18 IV Last administered on 04/17/17 05 :24; Admin Dose 40 MG; Start 04/16/17 at 18:00 Morphine Sulfate (morphine) 2 mg Q6H PRN IV PAIN LEVEL 6-10 Last administered on 04/16/17 15:29; Admin Dose 2 MG; Start 04/16/17 at 10:00 Lorazepam (Ativan) 0.5 mg Q6H PRN IV ANXIETY Last administered on 04/16/17 22: 29; Admin Dose 0.5 MG; Start 04/16/17 at 13:00 Hydralazine HCl 10 mg 10 mg Q4H PRN IV sbp>160; Start 04/16/17 at 14:30 Colistimethate Sodium 75 mg/ Sodium Chloride 100 ml @ 200 mls/hr Q12 IVPB Last administered on 04/17/17 09:52; Admin Dose 200 MLS/HR; Start 04/16/17 at 21:00 Linezolid (Zyvox 600mg/D5W (Pmx)) 300 ml @ 300 mls/hr Q12 IVPB Last administered on 04/17/17 11:19; Admin Dose 300 MLS/HR; Start 04/17/17 at 11:30 Methylprednisolone Sodium Succinate (Solu-Medrol) 40 mg Q12 IV ; Start 04/17/17 at 21:00 Ernesto Jon DO Apr 17, 2017 13:18
--- NOTE | 2017-04-17 14:33 | PN ---
DATE: 04/17/2017 SUBJECTIVE: Patient is awake, confused, looks comfortable, no fevers. WBC 12.2, H and H 8.9 and 27.8, platelets 419, neutrophils 92.2. BUN 32, creatinine 0.67. IN-DWELLINGS: Trach, PEG. MICROBIOLOGY: Blood cultures have not been done. Urine culture growing Klebsiella pneumoniae and V RE. DIAGNOSTICS: CT of the abdomen and pelvis on admission revealed bilateral pleural effusion with alda ateral lower lobe consolidation, pneumonia not excluded, small loculated inferior left pleural effus ion, questionable small empyema, mild perihepatic ascites, no evidence of bowel obstruction, no defi nite intra-abdominal focal fluid collections, a percutaneous G-tube in place, a large hiatal hernia. ANTIMICROBIALS: The patient is on Zyvox and colistin. She is also on steroids. PHYSICAL EXAMINATION: GENERAL: Fragile, elderly woman who is awake, confused, in no distress. HEENT: Head atraumatic, normocephalic. Sclerae anicteric. Buccal mucosa dry. NECK: Supple. CHEST: Rise symmetrical. Breath sounds with scattered rhonchi. HEART: S1, S2. ABDOMEN: Soft, bowel tones present. EXTREMITIES: With trace edema. ASSESSMENT: 1. Systemic inflammatory response syndrome. 2. Multidrug resistant polymicrobial urinary tract infection. 3. G-tube dysfunction. 4. Interstitial lung disease. 5. Mild pulmonary edema. PLAN: The patient remains stable. Antibiotics were adjusted as per urine cultures. Continue prese nt care. Follow recommendations of specialists. Dictated By: JAY JAY GIVENS RADIO DISPATCHER for HANSEL GIBBONS MD NI/NTS Conf#: [id number] DID#: [id number]
[2017-04-17] MEDS: DEXTROSE 5%-0.45% NACL 1,000 ML IV SCH (15:45)
--- NOTE | 2017-04-17 17:03 | PN ---
Date/Time of Note Date/Time of Note DATE: 04/17/17 TIME: 16:58 Assessment/Plan VTE Prophylaxis VTE Prophylaxis Intervention: SCD's Lines/Catheters Urinary Cath still in place: No Assessment/Plan Chief Complaint/Hosp Course 1. Peg tube dysfunction -PEG tube now functioning, have started tube feeds -If leakage around PEG tube insertion site persists the patient will need to have revision to a PEJ -Consultation with Dr. Ibarra appreciated 2. Coffee Ground Leakage -patient has extensive hiatal hernia surgery history, spoke with provider at [facility] , recent surgery done in september. Stitches still present on patient's left flank, patient's healthcare group and provider at [facility] notified, who will make arrangements that the surgeon who performed surgery will see patient in SNF to address -monitor hgb, questionable GI bleed due to low hgb -patient has history of coffee ground leakage per [facility] provider -pending GI recs 3. Acute respiratory distress secondary to low hgb and HF - likely 2/2 low hgb and component of heart failure -cardiology consulted, bnp elevated -Continue Lasix -spoke with physicians at [facility], patient has known small bilateral effusions and has chronic severe secretions, which is the main reason she can not be taken off the trach. 4. UTI secondary to multidrug-resistant Klebsiella and VRE -Colistin for Klebsiella -Zyvox for enterococcus -ID consultation obtained 5. Anemia secondary to chronic disease - FOBT negative 6. Dehydration -resolved -free water through the peg tube once fixed, IV for now, low due to volume overload 7. Hypertension - continue home medications when able 8. Hypothyroidism - Continue on home levothyroxine unable 9. Chronic Trach/PEG - placed CM consult for evaluation for [facility] for trach capping trial once stable for discharge 10. Nondisplaced fractures of ribs -chronic, monitor 11. Thrombocytosis - most likely reactive Prophylaxis: SCDs DC planning:-Patient will need colistin and Zyvox upon DC, heel caser aware and will try to arrange at skilled nursing Problems: Subjective 24 Hr Interval Summary Constitutional: disoriented Exam/Review of Systems Vital Signs Vitals Vital Signs Date Time Temp Pulse Resp B/P Pulse Ox O2 Delivery O2 Flow Rate FiO2 04/17/17 16:12 88 33 97 Aerosol 5.0 28 04/17/17 15:37 98.2 135/93 Intake and Output 04/16/17 04/16/17 04/17/17 14:59 22:59 06:59 Intake Total 380 ml 1340 ml Balance 380 ml 1340 ml Exam Psych: confusion Respiratory: clear to auscultation Cardiovascular: regular rate and rhythm Gastrointestinal: soft, No distended Musculoskeletal: nl extremities to inspection Results Result Diagram: 04/17/17 0825 04/17/17 0825 Results 24 hrs Laboratory Tests Test 04/17/17 08:25 White Blood Count 12.2 #H Red Blood Count 3.03 L Hemoglobin 8.9 L Hematocrit 27.8 L Mean Corpuscular Volume 91.7 Mean Corpuscular Hemoglobin 29.4 Mean Corpuscular Hemoglobin Concent 32.0 Red Cell Distribution Width 17.2 H Platelet Count 419 H Mean Platelet Volume 10.6 H Neutrophils % 92.2 H Lymphocytes % 2.7 L Monocytes % 4.1 Eosinophils % 0.0 Basophils % 0.1 Nucleated Red Blood Cells % 0.0 Neutrophils # 11.2 H Lymphocytes # 0.3 L Monocytes # 0.5 Eosinophils # 0.0 Basophils # 0.0 Nucleated Red Blood Cells # 0.0 Sodium Level 136 Potassium Level 3.9 Chloride Level 102 Carbon Dioxide Level 29 Anion Gap 9 Blood Urea Nitrogen 32 H Creatinine 0.67 Glucose Level 103 Calcium Level 7.7 L Medications Medications Current Medications Alprazolam (Xanax) 0.5 mg Q8H PRN GTB ANXIETY Last administered on 04/14/17 15 :57; Admin Dose 0.5 MG; Start 04/13/17 at 15:30 Amiodarone HCl (Cordarone) 200 mg DAILY GTB Last administered on 04/17/17 09: 51; Admin Dose 200 MG; Start 04/14/17 at 09:00 Aspirin (Halfprin) 81 mg DAILY PO Last administered on 04/17/17 09:50; Admin Dose 81 MG; Start 04/14/17 at 09:00 Atorvastatin Calcium (Lipitor) 40 mg QHS GTB Last administered on 04/16/17 22: 24; Admin Dose 40 MG; Start 04/13/17 at 21:00 Carvedilol (Coreg) 6.25 mg BID GTB Last administered on 04/17/17 09:52; Admin Dose 6.25 MG; Start 04/13/17 at 21:00 Losartan Potassium (Cozaar) 50 mg DAILY GTB Last administered on 04/17/17 09: 52; Admin Dose 50 MG; Start 04/14/17 at 09:00 Multivitamins Therapeutic (Theragran) 1 tab DAILY GTB Last administered on 04/17 09:51; Admin Dose 1 TAB; Start 04/14/17 at 09:00 Quetiapine Fumarate (Seroquel) 25 mg HS GTB Last administered on 04/16/17 22: 25; Admin Dose 25 MG; Start 04/13/17 at 21:00 Ferrous Sulfate (Feosol Liquid Cup) 220 mg BID GTB Last administered on 09:50; Admin Dose 220 MG; Start 04/13/17 at 21:00 Lactobacillus Acidophilus/ Rhamnosus (Culturelle) 1 cap TID PO Last administered on 04/17/17 13:00; Admin Dose 1 CAP; Start 04/13/17 at 21:00 Ondansetron HCl (Zofran Inj) 4 mg Q4H PRN IV NAUSEA AND/OR VOMITING; Start 04/13/17 at 15:30 Acetaminophen (Tylenol Tab) 650 mg Q6H PRN PO PAIN LEVEL 1-3 OR FEVER Last administered on 04/16/17 01:14; Admin Dose 650 MG; Start 04/13/17 at 15:30 Ferrous Sulfate (Slow Fe) 142 mg BID PO Last administered on 04/17/17 09:52; Admin Dose 142 MG; Start 04/14/17 at 21:00 Ascorbic Acid 500 mg 500 mg BID PO Last administered on 04/17/17 09:52; Admin Dose 500 MG; Start 04/14/17 at 21:00 Dextrose/Sodium Chloride (D5-1/2ns) 1,000 ml @ 40 mls/hr Q24H IV Last administered on 04/15/17 16:14; Admin Dose 40 MLS/HR; Start 04/14/17 at 23:30 Pantoprazole (Protonix Iv) 40 mg BID@06,18 IV Last administered on 04/17/17 05 :24; Admin Dose 40 MG; Start 04/16/17 at 18:00 Morphine Sulfate (morphine) 2 mg Q6H PRN IV PAIN LEVEL 6-10 Last administered on 04/16/17 15:29; Admin Dose 2 MG; Start 04/16/17 at 10:00 Lorazepam (Ativan) 0.5 mg Q6H PRN IV ANXIETY Last administered on 04/16/17 22: 29; Admin Dose 0.5 MG; Start 04/16/17 at 13:00 Hydralazine HCl 10 mg 10 mg Q4H PRN IV sbp>160; Start 04/16/17 at 14:30 Colistimethate Sodium 75 mg/ Sodium Chloride 100 ml @ 200 mls/hr Q12 IVPB Last administered on 04/17/17 09:52; Admin Dose 200 MLS/HR; Start 04/16/17 at 21:00 Linezolid (Zyvox 600mg/D5W (Pmx)) 300 ml @ 300 mls/hr Q12 IVPB Last administered on 04/17/17 11:19; Admin Dose 300 MLS/HR; Start 04/17/17 at 11:30 Methylprednisolone Sodium Succinate (Solu-Medrol) 40 mg Q12 IV ; Start 04/17/17 at 21:00 Furosemide (Lasix) 40 mg DAILY GTB ; Start 04/18/17 at 09:00 ABE GALLOWAY Apr 17, 2017 17:03
[2017-04-17] MEDS: QUETIAPINE 25 MG TAB GTB SCH (20:45)
[2017-04-17] MEDS: ATORVASTATIN 40 MG TAB GTB SCH (20:45)
[2017-04-18] VITALS (12 sets, daily range): BP systolic 124–163; BP diastolic 62–86; PULSE 53–87; RESP 18–20
[2017-04-18] MEDS: PANTOPRAZOLE 40 MG INJ IV SCH ×2 (05:17→18:36)
[2017-04-18] MEDS: LEVOTHYROXINE 100 MCG TAB GTB SCH (07:02)
[2017-04-18] MEDS: ALBUTEROL/IPRATROPIUM (NEB) 3 ML AMP INH SCH ×4 (08:54→20:20)
[2017-04-18] MEDS ORDERED: FUROSEMIDE 40 MG TAB GTB SCH (09:00)
--- NOTE | 2017-04-18 09:12 | CONS ---
Date/Time of Note Date/Time of Note DATE: 04/18/17 TIME: 09:11 Assessment/Plan Assessment/Plan Chief Complaint/Hosp Course Consultation dictated #[id number]. Continue current treatment. Problems: Additional Assessment/Plan Assessment and recommendations; 1. Patient admitted with CHF exacerbation with interval improvement. 2. UTI, currently on appropriate antibiotic regimen. 3. Chronic respiratory failure, patient however doing very well on T-piece. With a history of diaphragmatic hernia repair with significant persistent hiatal hernia. 4. Status post PEG tube placement. 5. History of hypothyroidism, hypertension and anemia. Continue current treatment. Consultation Date/Type/Reason Admit Date/Time Apr 13, 2017 at 13:23 Initial Consult Date 04/15/17 Type of Consultation: Pulmonary 24 HR Interval Summary Free Text/Dictation Patient's condition is stable. Denies any shortness of breath. General exam; elderly woman, awake alert, currently in no distress. Exam/Review of Systems Vital Signs Vitals Vital Signs Date Time Temp Pulse Resp B/P Pulse Ox O2 Delivery O2 Flow Rate FiO2 04/18/17 08:55 5.0 28 04/18/17 08:55 60 18 98 Aerosol T Tube 04/18/17 08:06 98.6 145/62 Intake and Output 04/17/17 04/17/17 04/18/17 15:00 23:00 07:00 Intake Total 840 ml 460 ml Balance 840 ml 460 ml Exam HEENT exam; supple neck, positive JVD. No lymphadenopathy. Midline trachea. No thyromegaly. Tracheostomy in place. Attached to T-piece. Chest exam; diminished but clear breath sounds. S1-S2 audible, no murmurs. Regular rhythm. Abdomen exam; soft, nontender. No organomegaly. PEG tube in place. Bowel sounds audible. Extremity exam; no edema. MACHINE PULLER exam; no focal deficit. Results Result Diagram: 04/17/1782404/17/17824 Medications Medications Current Medications Alprazolam (Xanax) 0.5 mg Q8H PRN GTB ANXIETY Last administered on 04/14/17 15 :57; Admin Dose 0.5 MG; Start 04/13/17 at 15:30 Amiodarone HCl (Cordarone) 200 mg DAILY GTB Last administered on 04/17/17 09: 51; Admin Dose 200 MG; Start 04/14/17 at 09:00 Aspirin (Halfprin) 81 mg DAILY PO Last administered on 04/17/17 09:50; Admin Dose 81 MG; Start 04/14/17 at 09:00 Atorvastatin Calcium (Lipitor) 40 mg QHS GTB Last administered on 04/17/17 20: 45; Admin Dose 40 MG; Start 04/13/17 at 21:00 Carvedilol (Coreg) 6.25 mg BID GTB Last administered on 04/17/17 09:52; Admin Dose 6.25 MG; Start 04/13/17 at 21:00 Losartan Potassium (Cozaar) 50 mg DAILY GTB Last administered on 04/17/17 09: 52; Admin Dose 50 MG; Start 04/14/17 at 09:00 Multivitamins Therapeutic (Theragran) 1 tab DAILY GTB Last administered on 04/17 09:51; Admin Dose 1 TAB; Start 04/14/17 at 09:00 Quetiapine Fumarate (Seroquel) 25 mg HS GTB Last administered on 04/17/17 20: 45; Admin Dose 25 MG; Start 04/13/17 at 21:00 Ferrous Sulfate (Feosol Liquid Cup) 220 mg BID GTB Last administered on 20:45; Admin Dose 220 MG; Start 04/13/17 at 21:00 Lactobacillus Acidophilus/ Rhamnosus (Culturelle) 1 cap TID PO Last administered on 04/17/17 20:45; Admin Dose 1 CAP; Start 04/13/17 at 21:00 Ondansetron HCl (Zofran Inj) 4 mg Q4H PRN IV NAUSEA AND/OR VOMITING; Start 04/13/17 at 15:30 Acetaminophen (Tylenol Tab) 650 mg Q6H PRN PO PAIN LEVEL 1-3 OR FEVER Last administered on 04/16/17 01:14; Admin Dose 650 MG; Start 04/13/17 at 15:30 Ferrous Sulfate (Slow Fe) 142 mg BID PO Last administered on 04/17/17 20:45; Admin Dose 142 MG; Start 04/14/17 at 21:00 Ascorbic Acid 500 mg 500 mg BID PO Last administered on 04/17/17 20:45; Admin Dose 500 MG; Start 04/14/17 at 21:00 Dextrose/Sodium Chloride (D5-1/2ns) 1,000 ml @ 40 mls/hr Q24H IV Last administered on 04/15/17 16:14; Admin Dose 40 MLS/HR; Start 04/14/17 at 23:30 Pantoprazole (Protonix Iv) 40 mg BID@06,18 IV Last administered on 04/18/17 05 :17; Admin Dose 40 MG; Start 04/16/17 at 18:00 Morphine Sulfate (morphine) 2 mg Q6H PRN IV PAIN LEVEL 6-10 Last administered on 04/16/17 15:29; Admin Dose 2 MG; Start 04/16/17 at 10:00 Lorazepam (Ativan) 0.5 mg Q6H PRN IV ANXIETY Last administered on 04/16/17 22: 29; Admin Dose 0.5 MG; Start 04/16/17 at 13:00 Hydralazine HCl 10 mg 10 mg Q4H PRN IV sbp>160; Start 04/16/17 at 14:30 Colistimethate Sodium 75 mg/ Sodium Chloride 100 ml @ 200 mls/hr Q12 IVPB Last administered on 04/17/17 22:31; Admin Dose 200 MLS/HR; Start 04/16/17 at 21:00 Linezolid (Zyvox 600mg/D5W (Pmx)) 300 ml @ 300 mls/hr Q12 IVPB Last administered on 04/17/17 20:45; Admin Dose 300 MLS/HR; Start 04/17/17 at 11:30 Methylprednisolone Sodium Succinate (Solu-Medrol) 40 mg Q12 IV Last administered on 04/17/17 20:46; Admin Dose 40 MG; Start 04/17/17 at 21:00 Furosemide (Lasix) 40 mg DAILY GTB ; Start 04/18/17 at 09:00 ALLISON DONOHUE Apr 18, 2017 09:12
[2017-04-18] MEDS: ASCORBIC ACID 500 MG TAB PO SCH ×2 (09:42→21:39)
[2017-04-18] MEDS: FERROUS SULFATE (SR) 142 MG TAB PO SCH ×2 (09:42→21:39)
[2017-04-18] MEDS: METHYLPREDNISOLONE 40 MG INJ IV SCH ×2 (09:42→21:40)
[2017-04-18] MEDS: FERROUS SULFATE 60 MG/ML 5ML CUP GTB SCH (09:42)
[2017-04-18] MEDS: ASPIRIN (EC) 81 MG TAB PO SCH (09:43)
[2017-04-18] MEDS: AMIODARONE 200 MG TAB GTB SCH (09:43)
[2017-04-18] MEDS: MULTIVITAMINS THERAPEUTIC TAB GTB SCH (09:43)
[2017-04-18] MEDS: LOSARTAN 50 MG TAB GTB SCH (09:43)
[2017-04-18] MEDS: LACTOBACILLUS RHAMNOSUS CAP PO SCH ×3 (09:44→21:39)
[2017-04-18 09:49] LABS: ABNORMAL IP MESSAGE 1; HEMATOCRIT 29.3 % (37.0-47.0); HEMOGLOBIN 9.2 g/dl (12.0-16.0); LYMPHOCYTES # 0.4 10^3/ul (0.8-2.9); LYMPHOCYTES % 5.2 % (15.0-51.0); MEAN CORPUSCULAR HEMOGLOBIN 28.8 pg (29.0-33.0); MEAN CORPUSCULAR HGB CONC 31.4 g/dl (32.0-37.0); MEAN CORPUSCULAR VOLUME 91.8 fl (82.0-101.0); MEAN PLATELET VOLUME 10.5 fl (7.4-10.4); MONOCYTE # 0.8 10^3/ul (0.3-0.9); MONOCYTES % 9.3 % (0.0-11.0); NEUTROPHIL # 6.9 10^3/ul (1.6-7.5); NEUTROPHILS % 84.9 % (39.0-77.0); PLATELET COUNT 419 10^3/UL (140-415); RED BLOOD COUNT 3.19 10^6/ul (4.20-5.40); RED CELL DISTRIBUTION WIDTH 16.8 % (11.5-14.5); WHITE BLOOD COUNT 8.1 10^3/ul (4.8-10.8)
[2017-04-18] MEDS: COLISTIMETHATE 75 MG in SOD CHLORIDE 0.9% 100 ML IVPB SCH ×2 (09:49→21:37)
[2017-04-18] MEDS: LINEZOLID 600 MG/D5W (PMX) 300 ML IVPB SCH ×2 (09:49→21:40)
[2017-04-18 10:03] LABS: CALCIUM 7.7 mg/dl (8.4-10.2); CREATININE 0.7 mg/dl (0.44-1.00); POTASSIUM 3.9 mmol/L (3.5-5.1)
--- NOTE | 2017-04-18 12:39 | CONS ---
Date/Time of Note Date/Time of Note DATE: 04/18/17 TIME: 12:37 Assessment/Plan Assessment/Plan Additional Assessment/Plan Acute blood loss anemia status post blood transfusion Acute decompensated diastolic congestive heart failure Chronic respiratory failure Paroxysmal atrial fibrillation, currently sinus Hypertension -Patient currently receiving medications via PEG. Blood pressure trend is better, would change Lasix back to maintenance dose starting from tomorrow 20 mg daily. Will order potassium supplementation. DC planning. Consultation Date/Type/Reason Admit Date/Time Apr 13, 2017 at 13:23 Initial Consult Date 04/15/17 Type of Consultation: cv 24 HR Interval Summary Free Text/Dictation Patient denies any shortness of breath, overall feeling better. Having secretions but she normally does Exam/Review of Systems Vital Signs Vitals Vital Signs Date Time Temp Pulse Resp B/P Pulse Ox O2 Delivery O2 Flow Rate FiO2 04/18/17 12:35 59 04/18/17 12:12 98.0 18 139/73 98 04/18/17 08:55 5.0 28 04/18/17 08:55 Aerosol T Tube Intake and Output 04/17/17 04/17/17 04/18/17 15:00 23:00 07:00 Intake Total 840 ml 460 ml Balance 840 ml 460 ml Exam No apparent distress Constitutional: alert, oriented Head: normocephalic Respiratory: other (Coarse breath sounds bilaterally, no wheezing) Cardiovascular: other (S1-S2 heard), regular rate and rhythm Gastrointestinal: bowel sounds, non-tender, soft Extremities: edema (Trivial) Results Result Diagram: 04/18/17 0846 04/18/17 0846 Results 24 hrs Laboratory Tests Test 04/18/17 08:46 White Blood Count 8.1 # Red Blood Count 3.19 L Hemoglobin 9.2 L Hematocrit 29.3 L Mean Corpuscular Volume 91.8 Mean Corpuscular Hemoglobin 28.8 L Mean Corpuscular Hemoglobin Concent 31.4 L Red Cell Distribution Width 16.8 H Platelet Count 419 H Mean Platelet Volume 10.5 H Neutrophils % 84.9 H Lymphocytes % 5.2 L Monocytes % 9.3 Eosinophils % 0.0 Basophils % 0.0 Nucleated Red Blood Cells % 0.0 Neutrophils # 6.9 Lymphocytes # 0.4 L Monocytes # 0.8 Eosinophils # 0.0 Basophils # 0.0 Nucleated Red Blood Cells # 0.0 Sodium Level 135 Potassium Level 3.9 Chloride Level 102 Carbon Dioxide Level 27 Anion Gap 10 Blood Urea Nitrogen 33 H Creatinine 0.70 Glucose Level 121 Calcium Level 7.7 L Medications Medications Current Medications Alprazolam (Xanax) 0.5 mg Q8H PRN GTB ANXIETY Last administered on 04/14/17 15 :57; Admin Dose 0.5 MG; Start 04/13/17 at 15:30 Amiodarone HCl (Cordarone) 200 mg DAILY GTB Last administered on 04/18/17 09: 43; Admin Dose 200 MG; Start 04/14/17 at 09:00 Aspirin (Halfprin) 81 mg DAILY PO Last administered on 04/18/17 09:43; Admin Dose 81 MG; Start 04/14/17 at 09:00 Atorvastatin Calcium (Lipitor) 40 mg QHS GTB Last administered on 04/17/17 20: 45; Admin Dose 40 MG; Start 04/13/17 at 21:00 Carvedilol (Coreg) 6.25 mg BID GTB Last administered on 04/18/17 09:42; Admin Dose 6.25 MG; Start 04/13/17 at 21:00 Losartan Potassium (Cozaar) 50 mg DAILY GTB Last administered on 04/18/17 09: 43; Admin Dose 50 MG; Start 04/14/17 at 09:00 Multivitamins Therapeutic (Theragran) 1 tab DAILY GTB Last administered on 04/18 09:43; Admin Dose 1 TAB; Start 04/14/17 at 09:00 Quetiapine Fumarate (Seroquel) 25 mg HS GTB Last administered on 04/17/17 20: 45; Admin Dose 25 MG; Start 04/13/17 at 21:00 Ferrous Sulfate (Feosol Liquid Cup) 220 mg BID GTB Last administered on 09:42; Admin Dose 220 MG; Start 04/13/17 at 21:00 Lactobacillus Acidophilus/ Rhamnosus (Culturelle) 1 cap TID PO Last administered on 04/18/17 09:44; Admin Dose 1 CAP; Start 04/13/17 at 21:00 Ondansetron HCl (Zofran Inj) 4 mg Q4H PRN IV NAUSEA AND/OR VOMITING; Start 04/13/17 at 15:30 Acetaminophen (Tylenol Tab) 650 mg Q6H PRN PO PAIN LEVEL 1-3 OR FEVER Last administered on 04/16/17 01:14; Admin Dose 650 MG; Start 04/13/17 at 15:30 Ferrous Sulfate (Slow Fe) 142 mg BID PO Last administered on 04/18/17 09:42; Admin Dose 142 MG; Start 04/14/17 at 21:00 Ascorbic Acid 500 mg 500 mg BID PO Last administered on 04/18/17 09:42; Admin Dose 500 MG; Start 04/14/17 at 21:00 Dextrose/Sodium Chloride (D5-1/2ns) 1,000 ml @ 40 mls/hr Q24H IV Last administered on 04/15/17 16:14; Admin Dose 40 MLS/HR; Start 04/14/17 at 23:30 Pantoprazole (Protonix Iv) 40 mg BID@06,18 IV Last administered on 04/18/17 05 :17; Admin Dose 40 MG; Start 04/16/17 at 18:00 Morphine Sulfate (morphine) 2 mg Q6H PRN IV PAIN LEVEL 6-10 Last administered on 04/16/17 15:29; Admin Dose 2 MG; Start 04/16/17 at 10:00 Lorazepam (Ativan) 0.5 mg Q6H PRN IV ANXIETY Last administered on 04/16/17 22: 29; Admin Dose 0.5 MG; Start 04/16/17 at 13:00 Hydralazine HCl 10 mg 10 mg Q4H PRN IV sbp>160; Start 04/16/17 at 14:30 Colistimethate Sodium 75 mg/ Sodium Chloride 100 ml @ 200 mls/hr Q12 IVPB Last administered on 04/18/17 09:49; Admin Dose 200 MLS/HR; Start 04/16/17 at 21:00 Linezolid (Zyvox 600mg/D5W (Pmx)) 300 ml @ 300 mls/hr Q12 IVPB Last administered on 04/18/17 09:49; Admin Dose 300 MLS/HR; Start 04/17/17 at 11:30 Methylprednisolone Sodium Succinate (Solu-Medrol) 40 mg Q12 IV Last administered on 04/18/17 09:42; Admin Dose 40 MG; Start 04/17/17 at 21:00 Furosemide (Lasix) 40 mg DAILY GTB Last administered on 04/18/17t 09:43; Admin Dose 40 MG; Start 04/18/17 at 09:00 Ernesto Jon DO Apr 18, 2017 12:39
[2017-04-18] MEDS ORDERED: POTASSIUM CHLORIDE 20 MEQ POWDER FOR ORAL SOLN JT ONE (13:00)
--- NOTE | 2017-04-18 14:20 | PN ---
Date/Time of Note Date/Time of Note DATE: 04/18/17 TIME: 14:20 Assessment/Plan VTE Prophylaxis VTE Prophylaxis Intervention: SCD's Lines/Catheters Urinary Cath still in place: No Assessment/Plan Chief Complaint/Hosp Course 1. Peg tube dysfunction -PEG tube now functioning, have started tube feeds -If leakage around PEG tube insertion site persists the patient will need to have revision to a PEJ -Consultation with Dr. Ibarra appreciated 2. Coffee Ground Leakage -patient has extensive hiatal hernia surgery history, spoke with provider at [facility] , recent surgery done in september. Stitches still present on patient's left flank, patient's healthcare group and provider at [facility] notified, who will make arrangements that the surgeon who performed surgery will see patient in SNF to address -monitor hgb, questionable GI bleed due to low hgb -patient has history of coffee ground leakage per [facility] provider -pending GI recs 3. Acute respiratory distress secondary to low hgb and HF - likely 2/2 low hgb and component of heart failure -cardiology consulted, bnp elevated -Continue Lasix -spoke with physicians at [facility], patient has known small bilateral effusions and has chronic severe secretions, which is the main reason she can not be taken off the trach. 4. UTI secondary to multidrug-resistant Klebsiella and VRE -Colistin for Klebsiella -Zyvox for enterococcus -ID consultation obtained 5. Anemia secondary to chronic disease - FOBT negative 6. Dehydration -resolved -free water through the peg tube once fixed, IV for now, low due to volume overload 7. Hypertension - continue home medications when able 8. Hypothyroidism - Continue on home levothyroxine unable 9. Chronic Trach/PEG - placed CM consult for evaluation for [facility] for trach capping trial once stable for discharge 10. Nondisplaced fractures of ribs -chronic, monitor 11. Thrombocytosis - most likely reactive Prophylaxis: SCDs DC planning:-Patient will need colistin and Zyvox upon DC, casey saw operator aware and will try to arrange at group home Problems: Subjective 24 Hr Interval Summary Constitutional: no complaints Exam/Review of Systems Vital Signs Vitals Vital Signs Date Time Temp Pulse Resp B/P Pulse Ox O2 Delivery O2 Flow Rate FiO2 04/18/17 12:47 66 22 97 Aerosol 5.0 28 04/18/17 12:12 98.0 139/73 Intake and Output 04/17/17 04/17/17 04/18/17 15:00 23:00 07:00 Intake Total 840 ml 460 ml Balance 840 ml 460 ml Exam Constitutional: alert Respiratory: clear to auscultation Cardiovascular: regular rate and rhythm Gastrointestinal: soft, No distended Musculoskeletal: nl extremities to inspection Results Result Diagram: 04/18/17 0846 04/18/17 0846 Results 24 hrs Laboratory Tests Test 04/18/17 08:46 White Blood Count 8.1 # Red Blood Count 3.19 L Hemoglobin 9.2 L Hematocrit 29.3 L Mean Corpuscular Volume 91.8 Mean Corpuscular Hemoglobin 28.8 L Mean Corpuscular Hemoglobin Concent 31.4 L Red Cell Distribution Width 16.8 H Platelet Count 419 H Mean Platelet Volume 10.5 H Neutrophils % 84.9 H Lymphocytes % 5.2 L Monocytes % 9.3 Eosinophils % 0.0 Basophils % 0.0 Nucleated Red Blood Cells % 0.0 Neutrophils # 6.9 Lymphocytes # 0.4 L Monocytes # 0.8 Eosinophils # 0.0 Basophils # 0.0 Nucleated Red Blood Cells # 0.0 Sodium Level 135 Potassium Level 3.9 Chloride Level 102 Carbon Dioxide Level 27 Anion Gap 10 Blood Urea Nitrogen 33 H Creatinine 0.70 Glucose Level 121 Calcium Level 7.7 L Medications Medications Current Medications Alprazolam (Xanax) 0.5 mg Q8H PRN GTB ANXIETY Last administered on 04/14/17 15 :57; Admin Dose 0.5 MG; Start 04/13/17 at 15:30 Amiodarone HCl (Cordarone) 200 mg DAILY GTB Last administered on 04/18/17 09: 43; Admin Dose 200 MG; Start 04/14/17 at 09:00 Aspirin (Halfprin) 81 mg DAILY PO Last administered on 04/18/17 09:43; Admin Dose 81 MG; Start 04/14/17 at 09:00 Atorvastatin Calcium (Lipitor) 40 mg QHS GTB Last administered on 04/17/17 20: 45; Admin Dose 40 MG; Start 04/13/17 at 21:00 Carvedilol (Coreg) 6.25 mg BID GTB Last administered on 04/18/17 09:42; Admin Dose 6.25 MG; Start 04/13/17 at 21:00 Losartan Potassium (Cozaar) 50 mg DAILY GTB Last administered on 04/18/17 09: 43; Admin Dose 50 MG; Start 04/14/17 at 09:00 Multivitamins Therapeutic (Theragran) 1 tab DAILY GTB Last administered on 04/18 09:43; Admin Dose 1 TAB; Start 04/14/17 at 09:00 Quetiapine Fumarate (Seroquel) 25 mg HS GTB Last administered on 04/17/17 20: 45; Admin Dose 25 MG; Start 04/13/17 at 21:00 Ferrous Sulfate (Feosol Liquid Cup) 220 mg BID GTB Last administered on 09:42; Admin Dose 220 MG; Start 04/13/17 at 21:00 Lactobacillus Acidophilus/ Rhamnosus (Culturelle) 1 cap TID PO Last administered on 04/18/17 13:47; Admin Dose 1 CAP; Start 04/13/17 at 21:00 Ondansetron HCl (Zofran Inj) 4 mg Q4H PRN IV NAUSEA AND/OR VOMITING; Start 04/13/17 at 15:30 Acetaminophen (Tylenol Tab) 650 mg Q6H PRN PO PAIN LEVEL 1-3 OR FEVER Last administered on 04/16/17 01:14; Admin Dose 650 MG; Start 04/13/17 at 15:30 Ferrous Sulfate (Slow Fe) 142 mg BID PO Last administered on 04/18/17 09:42; Admin Dose 142 MG; Start 04/14/17 at 21:00 Ascorbic Acid 500 mg 500 mg BID PO Last administered on 04/18/17 09:42; Admin Dose 500 MG; Start 04/14/17 at 21:00 Dextrose/Sodium Chloride (D5-1/2ns) 1,000 ml @ 40 mls/hr Q24H IV Last administered on 04/15/17 16:14; Admin Dose 40 MLS/HR; Start 04/14/17 at 23:30 Pantoprazole (Protonix Iv) 40 mg BID@06,18 IV Last administered on 04/18/17 05 :17; Admin Dose 40 MG; Start 04/16/17 at 18:00 Morphine Sulfate (morphine) 2 mg Q6H PRN IV PAIN LEVEL 6-10 Last administered on 04/16/17 15:29; Admin Dose 2 MG; Start 04/16/17 at 10:00 Lorazepam (Ativan) 0.5 mg Q6H PRN IV ANXIETY Last administered on 04/16/17 22: 29; Admin Dose 0.5 MG; Start 04/16/17 at 13:00 Hydralazine HCl 10 mg 10 mg Q4H PRN IV sbp>160; Start 04/16/17 at 14:30 Colistimethate Sodium 75 mg/ Sodium Chloride 100 ml @ 200 mls/hr Q12 IVPB Last administered on 04/18/17 09:49; Admin Dose 200 MLS/HR; Start 04/16/17 at 21:00 Linezolid (Zyvox 600mg/D5W (Pmx)) 300 ml @ 300 mls/hr Q12 IVPB Last administered on 04/18/17 09:49; Admin Dose 300 MLS/HR; Start 04/17/17 at 11:30 Methylprednisolone Sodium Succinate (Solu-Medrol) 40 mg Q12 IV Last administered on 04/18/17 09:42; Admin Dose 40 MG; Start 04/17/17 at 21:00 Furosemide (Lasix) 20 mg DAILY@06 GTB ; Start 04/19/17 at 06:00 ABE GALLOWAY Apr 18, 2017 14:20
--- NOTE | 2017-04-18 14:23 | CONS ---
Date/Time of Note Date/Time of Note DATE: 04/18/17 TIME: 14:21 Assessment/Plan Assessment/Plan Chief Complaint/Hosp Course SUBJECTIVE: Patient is awake, looks comfortable, no fevers. IN-DWELLINGS: Trach, PEG. MICROBIOLOGY: Urine culture growing MDR Klebsiella pneumoniae and VRE. Antibiotics: Zyvox, colistin DIAGNOSTICS: CT of the abdomen and pelvis on admission revealed bilateral pleural effusion with bilateral lower lobe consolidation, pneumonia not excluded , small loculated inferior left pleural effusion, questionable small empyema, mild perihepatic ascites, no evidence of bowel obstruction, no definite intra- abdominal focal fluid collections, a percutaneous G-tube in place, a large hiatal hernia. PHYSICAL EXAMINATION: GENERAL: Fragile, elderly woman who is awake, confused, in no distress. HEENT: Head atraumatic, normocephalic. Sclerae anicteric. Buccal mucosa dry. NECK: Supple. CHEST: Rise symmetrical. Breath sounds with scattered rhonchi. HEART: S1, S2. ABDOMEN: Soft, bowel tones present. EXTREMITIES: With trace edema. ASSESSMENT: 1. Systemic inflammatory response syndrome. 2. Multidrug resistant polymicrobial urinary tract infection. 3. Status post G-tube dysfunction. 4. Interstitial lung disease. 5. Mild pulmonary edema. 6. Anemia and thrombocytosis PLAN: The patient remains stable. Continue present care, antibiotics. Follow recommendations of specialists. Discussed with staff Problems: Consultation Date/Type/Reason Admit Date/Time Apr 13, 2017 at 13:23 Initial Consult Date 04/15/17 Type of Consultation: ID Exam/Review of Systems Vital Signs Vitals Vital Signs Date Time Temp Pulse Resp B/P Pulse Ox O2 Delivery O2 Flow Rate FiO2 04/18/17 12:47 66 22 97 Aerosol 5.0 28 04/18/17 12:12 98.0 139/73 Intake and Output 04/17/17 04/17/17 04/18/17 14:59 22:59 06:59 Intake Total 740 ml 560 ml Balance 740 ml 560 ml Results Result Diagram: 04/18/17 0846 04/18/17 0846 Results 24 hrs Laboratory Tests Test 04/18/17 08:46 White Blood Count 8.1 # Red Blood Count 3.19 L Hemoglobin 9.2 L Hematocrit 29.3 L Mean Corpuscular Volume 91.8 Mean Corpuscular Hemoglobin 28.8 L Mean Corpuscular Hemoglobin Concent 31.4 L Red Cell Distribution Width 16.8 H Platelet Count 419 H Mean Platelet Volume 10.5 H Neutrophils % 84.9 H Lymphocytes % 5.2 L Monocytes % 9.3 Eosinophils % 0.0 Basophils % 0.0 Nucleated Red Blood Cells % 0.0 Neutrophils # 6.9 Lymphocytes # 0.4 L Monocytes # 0.8 Eosinophils # 0.0 Basophils # 0.0 Nucleated Red Blood Cells # 0.0 Sodium Level 135 Potassium Level 3.9 Chloride Level 102 Carbon Dioxide Level 27 Anion Gap 10 Blood Urea Nitrogen 33 H Creatinine 0.70 Glucose Level 121 Calcium Level 7.7 L Medications Medications Current Medications Alprazolam (Xanax) 0.5 mg Q8H PRN GTB ANXIETY Last administered on 04/14/17 15 :57; Admin Dose 0.5 MG; Start 04/13/17 at 15:30 Amiodarone HCl (Cordarone) 200 mg DAILY GTB Last administered on 04/18/17 09: 43; Admin Dose 200 MG; Start 04/14/17 at 09:00 Aspirin (Halfprin) 81 mg DAILY PO Last administered on 04/18/17 09:43; Admin Dose 81 MG; Start 04/14/17 at 09:00 Atorvastatin Calcium (Lipitor) 40 mg QHS GTB Last administered on 04/17/17 20: 45; Admin Dose 40 MG; Start 04/13/17 at 21:00 Carvedilol (Coreg) 6.25 mg BID GTB Last administered on 04/18/17 09:42; Admin Dose 6.25 MG; Start 04/13/17 at 21:00 Losartan Potassium (Cozaar) 50 mg DAILY GTB Last administered on 04/18/17 09: 43; Admin Dose 50 MG; Start 04/14/17 at 09:00 Multivitamins Therapeutic (Theragran) 1 tab DAILY GTB Last administered on 04/18 09:43; Admin Dose 1 TAB; Start 04/14/17 at 09:00 Quetiapine Fumarate (Seroquel) 25 mg HS GTB Last administered on 04/17/17 20: 45; Admin Dose 25 MG; Start 04/13/17 at 21:00 Ferrous Sulfate (Feosol Liquid Cup) 220 mg BID GTB Last administered on 09:42; Admin Dose 220 MG; Start 04/13/17 at 21:00 Lactobacillus Acidophilus/ Rhamnosus (Culturelle) 1 cap TID PO Last administered on 04/18/17 13:47; Admin Dose 1 CAP; Start 04/13/17 at 21:00 Ondansetron HCl (Zofran Inj) 4 mg Q4H PRN IV NAUSEA AND/OR VOMITING; Start 04/13/17 at 15:30 Acetaminophen (Tylenol Tab) 650 mg Q6H PRN PO PAIN LEVEL 1-3 OR FEVER Last administered on 04/16/17 01:14; Admin Dose 650 MG; Start 04/13/17 at 15:30 Ferrous Sulfate (Slow Fe) 142 mg BID PO Last administered on 04/18/17 09:42; Admin Dose 142 MG; Start 04/14/17 at 21:00 Ascorbic Acid 500 mg 500 mg BID PO Last administered on 04/18/17 09:42; Admin Dose 500 MG; Start 04/14/17 at 21:00 Dextrose/Sodium Chloride (D5-1/2ns) 1,000 ml @ 40 mls/hr Q24H IV Last administered on 04/15/17 16:14; Admin Dose 40 MLS/HR; Start 04/14/17 at 23:30 Pantoprazole (Protonix Iv) 40 mg BID@06,18 IV Last administered on 04/18/17 05 :17; Admin Dose 40 MG; Start 04/16/17 at 18:00 Morphine Sulfate (morphine) 2 mg Q6H PRN IV PAIN LEVEL 6-10 Last administered on 04/16/17 15:29; Admin Dose 2 MG; Start 04/16/17 at 10:00 Lorazepam (Ativan) 0.5 mg Q6H PRN IV ANXIETY Last administered on 04/16/17 22: 29; Admin Dose 0.5 MG; Start 04/16/17 at 13:00 Hydralazine HCl 10 mg 10 mg Q4H PRN IV sbp>160; Start 04/16/17 at 14:30 Colistimethate Sodium 75 mg/ Sodium Chloride 100 ml @ 200 mls/hr Q12 IVPB Last administered on 04/18/17 09:49; Admin Dose 200 MLS/HR; Start 04/16/17 at 21:00 Linezolid (Zyvox 600mg/D5W (Pmx)) 300 ml @ 300 mls/hr Q12 IVPB Last administered on 04/18/17 09:49; Admin Dose 300 MLS/HR; Start 04/17/17 at 11:30 Methylprednisolone Sodium Succinate (Solu-Medrol) 40 mg Q12 IV Last administered on 04/18/17 09:42; Admin Dose 40 MG; Start 04/17/17 at 21:00 Furosemide (Lasix) 20 mg DAILY@06 GTB ; Start 04/19/17 at 06:00 JAY JAY GIVENS NP Apr 18, 2017 14:23
[2017-04-18] MEDS: LORAZEPAM 2 MG INJ IV PRN (14:44)
[2017-04-18] MEDS: DEXTROSE 5%-0.45% NACL 1,000 ML IV SCH (15:14)
[2017-04-18] MEDS: ATORVASTATIN 40 MG TAB GTB SCH (21:39)
[2017-04-18] MEDS: ALPRAZOLAM 0.5 MG TAB GTB PRN (21:39)
[2017-04-18] MEDS: QUETIAPINE 25 MG TAB GTB SCH (21:39)
[2017-04-19] VITALS (12 sets, daily range): BP systolic 104–156; BP diastolic 63–78; PULSE 52–83; RESP 16–20
[2017-04-19] MEDS: PANTOPRAZOLE 40 MG INJ IV SCH ×2 (06:22→18:04)
[2017-04-19] MEDS: FUROSEMIDE 20 MG TAB GTB SCH (06:23)
[2017-04-19] MEDS: LEVOTHYROXINE 100 MCG TAB GTB SCH (06:23)
[2017-04-19] MEDS: ALBUTEROL/IPRATROPIUM (NEB) 3 ML AMP INH SCH ×4 (08:33→21:39)
[2017-04-19] MEDS: COLISTIMETHATE 75 MG in SOD CHLORIDE 0.9% 100 ML IVPB SCH ×2 (10:01→21:07)
[2017-04-19] MEDS: METHYLPREDNISOLONE 40 MG INJ IV SCH ×2 (10:01→21:05)
[2017-04-19] MEDS: FERROUS SULFATE (SR) 142 MG TAB PO SCH ×2 (10:01→21:05)
[2017-04-19] MEDS: LACTOBACILLUS RHAMNOSUS CAP PO SCH ×3 (10:01→21:05)
[2017-04-19] MEDS: AMIODARONE 200 MG TAB GTB SCH (10:02)
[2017-04-19] MEDS: LOSARTAN 50 MG TAB GTB SCH (10:02)
[2017-04-19] MEDS: ASCORBIC ACID 500 MG TAB PO SCH ×2 (10:03→21:05)
[2017-04-19] MEDS: ASPIRIN (EC) 81 MG TAB PO SCH (10:03)
[2017-04-19] MEDS: MULTIVITAMINS THERAPEUTIC TAB GTB SCH (10:03)
[2017-04-19] MEDS: LINEZOLID 600 MG/D5W (PMX) 300 ML IVPB SCH ×2 (10:11→22:20)
[2017-04-19] MEDS: LORAZEPAM 2 MG INJ IV PRN (11:54)
--- NOTE | 2017-04-19 12:33 | PN ---
Date/Time of Note Date/Time of Note DATE: 04/19/17 TIME: 12:33 Assessment/Plan VTE Prophylaxis VTE Prophylaxis Intervention: SCD's Lines/Catheters Urinary Cath still in place: No Assessment/Plan Chief Complaint/Hosp Course 1. Peg tube dysfunction -PEG tube now functioning, have started tube feeds -If leakage around PEG tube insertion site persists the patient will need to have revision to a PEJ -Consultation with Dr. Ibarra appreciated 2. Coffee Ground Leakage -patient has extensive hiatal hernia surgery history, spoke with provider at [facility] , recent surgery done in september. Stitches still present on patient's left flank, patient's healthcare group and provider at [facility] notified, who will make arrangements that the surgeon who performed surgery will see patient in SNF to address -monitor hgb, questionable GI bleed due to low hgb -patient has history of coffee ground leakage per [facility] provider -pending GI recs 3. Acute respiratory distress secondary to low hgb and HF - likely 2/2 low hgb and component of heart failure -cardiology consulted, bnp elevated -Continue Lasix -spoke with physicians at [facility], patient has known small bilateral effusions and has chronic severe secretions, which is the main reason she can not be taken off the trach. 4. UTI secondary to multidrug-resistant Klebsiella and VRE -Colistin for Klebsiella -Zyvox for enterococcus -ID consultation obtained 5. Anemia secondary to chronic disease - FOBT negative 6. Dehydration -resolved -free water through the peg tube once fixed, IV for now, low due to volume overload 7. Hypertension - continue home medications when able 8. Hypothyroidism - Continue on home levothyroxine unable 9. Chronic Trach/PEG - placed CM consult for evaluation for [place] for trach capping trial once stable for discharge 10. Nondisplaced fractures of ribs -chronic, monitor 11. Thrombocytosis - most likely reactive Prophylaxis: SCDs DC planning:-Patient will need colistin and Zyvox upon DC, family preservation caseworker aware and will try to arrange at [facility] Problems: Subjective 24 Hr Interval Summary Constitutional: no complaints Exam/Review of Systems Vital Signs Vitals Vital Signs Date Time Temp Pulse Resp B/P Pulse Ox O2 Delivery O2 Flow Rate FiO2 04/19/17 11:50 60 22 04/19/17 11:50 5.0 28 04/19/17 08:45 97.8 156/74 92 04/18/17 20:21 Aerosol T Tube Intake and Output 04/18/17 04/18/17 04/19/17 15:00 23:00 07:00 Intake Total 860 ml 450 ml Balance 860 ml 450 ml Exam Constitutional: alert Respiratory: clear to auscultation Cardiovascular: regular rate and rhythm Gastrointestinal: soft, No distended Musculoskeletal: nl extremities to inspection Results Result Diagram: 04/18/17 0846 04/18/17 0846 Medications Medications Current Medications Alprazolam (Xanax) 0.5 mg Q8H PRN GTB ANXIETY Last administered on 04/18/17 21 :39; Admin Dose 0.5 MG; Start 04/13/17 at 15:30 Amiodarone HCl (Cordarone) 200 mg DAILY GTB Last administered on 04/19/17 10: 02; Admin Dose 200 MG; Start 04/14/17 at 09:00 Aspirin (Halfprin) 81 mg DAILY PO Last administered on 04/19/17 10:03; Admin Dose 81 MG; Start 04/14/17 at 09:00 Atorvastatin Calcium (Lipitor) 40 mg QHS GTB Last administered on 04/18/17 21: 39; Admin Dose 40 MG; Start 04/13/17 at 21:00 Carvedilol (Coreg) 6.25 mg BID GTB Last administered on 04/19/17 10:02; Admin Dose 6.25 MG; Start 04/13/17 at 21:00 Losartan Potassium (Cozaar) 50 mg DAILY GTB Last administered on 04/19/17 10: 02; Admin Dose 50 MG; Start 04/14/17 at 09:00 Multivitamins Therapeutic (Theragran) 1 tab DAILY GTB Last administered on 04/19 10:03; Admin Dose 1 TAB; Start 04/14/17 at 09:00 Quetiapine Fumarate (Seroquel) 25 mg HS GTB Last administered on 04/18/17 21: 39; Admin Dose 25 MG; Start 04/13/17 at 21:00 Lactobacillus Acidophilus/ Rhamnosus (Culturelle) 1 cap TID PO Last administered on 04/19/17 10:01; Admin Dose 1 CAP; Start 04/13/17 at 21:00 Ondansetron HCl (Zofran Inj) 4 mg Q4H PRN IV NAUSEA AND/OR VOMITING; Start 04/13/17 at 15:30 Acetaminophen (Tylenol Tab) 650 mg Q6H PRN PO PAIN LEVEL 1-3 OR FEVER Last administered on 04/16/17 01:14; Admin Dose 650 MG; Start 04/13/17 at 15:30 Ferrous Sulfate (Slow Fe) 142 mg BID PO Last administered on 04/19/17 10:01; Admin Dose 142 MG; Start 04/14/17 at 21:00 Ascorbic Acid 500 mg 500 mg BID PO Last administered on 04/19/17 10:03; Admin Dose 500 MG; Start 04/14/17 at 21:00 Dextrose/Sodium Chloride (D5-1/2ns) 1,000 ml @ 40 mls/hr Q24H IV Last administered on 04/15/17 16:14; Admin Dose 40 MLS/HR; Start 04/14/17 at 23:30 Pantoprazole (Protonix Iv) 40 mg BID@06,18 IV Last administered on 04/19/17 06 :22; Admin Dose 40 MG; Start 04/16/17 at 18:00 Morphine Sulfate (morphine) 2 mg Q6H PRN IV PAIN LEVEL 6-10 Last administered on 04/16/17 15:29; Admin Dose 2 MG; Start 04/16/17 at 10:00 Lorazepam (Ativan) 0.5 mg Q6H PRN IV ANXIETY Last administered on 04/19/17 11: 54; Admin Dose 0.5 MG; Start 04/16/17 at 13:00 Hydralazine HCl 10 mg 10 mg Q4H PRN IV sbp>160; Start 04/16/17 at 14:30 Colistimethate Sodium 75 mg/ Sodium Chloride 100 ml @ 200 mls/hr Q12 IVPB Last administered on 04/19/17 10:01; Admin Dose 200 MLS/HR; Start 04/16/17 at 21:00 Linezolid (Zyvox 600mg/D5W (Pmx)) 300 ml @ 300 mls/hr Q12 IVPB Last administered on 04/19/17 10:11; Admin Dose 300 MLS/HR; Start 04/17/17 at 11:30 Methylprednisolone Sodium Succinate (Solu-Medrol) 40 mg Q12 IV Last administered on 04/19/17 10:01; Admin Dose 40 MG; Start 04/17/17 at 21:00 Furosemide (Lasix) 20 mg DAILY@06 GTB Last administered on 04/19/17 06:23; Admin Dose 20 MG; Start 04/19/17 at 06:00 ABE GALLOWAY Apr 19, 2017 12:33
[2017-04-19] MEDS: DEXTROSE 5%-0.45% NACL 1,000 ML IV SCH (14:44)
[2017-04-19] MEDS: ALPRAZOLAM 0.5 MG TAB GTB PRN (14:44)
--- NOTE | 2017-04-19 15:46 | CONS ---
Date/Time of Note Date/Time of Note DATE: 04/19/17 TIME: 15:25 Assessment/Plan Assessment/Plan Chief Complaint/Hosp Course ID PROGRESS NOTE CURRENT ABX: 04/13 START DATE TOTAL DAY #6=>Zyvox #2.5+ Colistin #3.5 s/p Azith, Unasyn, Ceftriaxone * Resting comfortably without distress w/eyes closed -- staff tells me she was awake earlier * No fevers, WBC 8.1. * MICROBIOLOGY: Urine culture growing MDR Klebsiella pneumoniae and VRE. * DIAGNOSTICS: CT of the abdomen and pelvis on admission revealed bilateral pleural effusion with bilateral lower lobe consolidation, pneumonia not excluded , small loculated inferior left pleural effusion, questionable small empyema, mild perihepatic ascites, no evidence of bowel obstruction, no definite intra- abdominal focal fluid collections, a percutaneous G-tube in place, a large hiatal hernia. PHYSICAL EXAMINATION: GENERAL: Lethergic, Afebrile, VSS, NAD HEENT: Unremarkable except for subcutaneous forehead nodule ? Inclusion cyst?, no erythema, no edema NECK: Supple, (+)Trach secure w/trach mask, supplemental cool aerosol , without dyspnea, no accessory muscle use CHEST: Equal chest rise bilaterally, no distress HEART: RRR pulse ABDOMEN: Soft, peg EXT: Warm, no edema, moves extremities SKIN: No rash, no diaphoresis ID ASSESSMENT: 71 yo F admit with: 1. Systemic inflammatory response syndrome=> RESOLVED * Afebrile * WBC 8.1 today, IV steroids onboard noted 2. Multidrug resistant polymicrobial urinary tract infection. * 04/13/17 URINE CULTURE Final Organism 1 KLEB PNEUMONIAE CARBAPENEMASE COLONY COUNT 50,000 - 60,000 CFU/ml . MULTI DRUG RESISTANT ORGANISM Organism 2 VANCO RESISTANT ENTEROCOCCUS COLONY COUNT 50,000 - 60,000 CFU/ml 3. Status post G-tube dysfunction/GT leak w/mild GT site cellulitis/ skin excoriation * 04/15/17 ABD GT SITE: BODY FLUID CULTURE Preliminary Organism 1 KLEB PNEUMONIAE CARBAPENEMASE Organism 2 VANCO RESISTANT ENTEROCOCCUS Organism 3 GRAM NEGATIVE ROBERTO CARLOS QUANTITY 1+ 4. Interstitial lung disease w/chronic trach -> s/p hypoxic respiratory distress in setting symptomatic anemia + CHF w/elevated BNP 5. Mild pulmonary edema-> CHF w/elevated BNP 6. Aspiration HCAP => CT bilateral pleural effusion with bilateral lower lobe consolidation, small loculated inferior left pleural effusion, questionable small empyema. * RISK Factors: Trach + Hiatal hernia + PEG 7. Hiatal Hernia -> s/p recent surgery w/left flank stitches 8. Anemia and thrombocytosis (-)MRSA Nares ABX ALLERGIES: NKDA INVASIVES: PIC RUEXT , Trach, peg CURRENT ABX: =>Zyvox #2.5+ Colistin #3.5 04/13 START DATE TOTAL DAY #6 s/p Azith, Unasyn, Ceftriaxone ID RECOMMENDATIONS/PLAN: 1. Continue current ABX => PLAN for DC ABX tomorrow evening, if stable post ABX DC anticipate DC to SNF Friday OFF ABX 2. Local ABD peg site care . . Problems: Consultation Date/Type/Reason Admit Date/Time Apr 13, 2017 at 13:23 Initial Consult Date 04/15/17 Type of Consultation: ID Exam/Review of Systems Vital Signs Vitals Vital Signs Date Time Temp Pulse Resp B/P Pulse Ox O2 Delivery O2 Flow Rate FiO2 04/19/17 12:30 98.3 81 20 104/78 93 04/19/17 11:50 5.0 28 04/18/17 20:21 Aerosol T Tube Intake and Output 04/18/17 04/18/17 04/19/17 15:00 23:00 07:00 Intake Total 860 ml 450 ml Balance 860 ml 450 ml Results Result Diagram: 04/18/17 0846 04/18/17 0846 Medications Medications Current Medications Alprazolam (Xanax) 0.5 mg Q8H PRN GTB ANXIETY Last administered on 04/19/17 14 :44; Admin Dose 0.5 MG; Start 04/13/17 at 15:30 Amiodarone HCl (Cordarone) 200 mg DAILY GTB Last administered on 04/19/17 10: 02; Admin Dose 200 MG; Start 04/14/17 at 09:00 Aspirin (Halfprin) 81 mg DAILY PO Last administered on 04/19/17 10:03; Admin Dose 81 MG; Start 04/14/17 at 09:00 Atorvastatin Calcium (Lipitor) 40 mg QHS GTB Last administered on 04/18/17 21: 39; Admin Dose 40 MG; Start 04/13/17 at 21:00 Carvedilol (Coreg) 6.25 mg BID GTB Last administered on 04/19/17 10:02; Admin Dose 6.25 MG; Start 04/13/17 at 21:00 Losartan Potassium (Cozaar) 50 mg DAILY GTB Last administered on 04/19/17 10: 02; Admin Dose 50 MG; Start 04/14/17 at 09:00 Multivitamins Therapeutic (Theragran) 1 tab DAILY GTB Last administered on 04/19 10:03; Admin Dose 1 TAB; Start 04/14/17 at 09:00 Quetiapine Fumarate (Seroquel) 25 mg HS GTB Last administered on 04/18/17 21: 39; Admin Dose 25 MG; Start 04/13/17 at 21:00 Lactobacillus Acidophilus/ Rhamnosus (Culturelle) 1 cap TID PO Last administered on 04/19/17 13:04; Admin Dose 1 CAP; Start 04/13/17 at 21:00 Ondansetron HCl (Zofran Inj) 4 mg Q4H PRN IV NAUSEA AND/OR VOMITING; Start 04/13/17 at 15:30 Acetaminophen (Tylenol Tab) 650 mg Q6H PRN PO PAIN LEVEL 1-3 OR FEVER Last administered on 04/16/17 01:14; Admin Dose 650 MG; Start 04/13/17 at 15:30 Ferrous Sulfate (Slow Fe) 142 mg BID PO Last administered on 04/19/17 10:01; Admin Dose 142 MG; Start 04/14/17 at 21:00 Ascorbic Acid 500 mg 500 mg BID PO Last administered on 04/19/17 10:03; Admin Dose 500 MG; Start 04/14/17 at 21:00 Dextrose/Sodium Chloride (D5-1/2ns) 1,000 ml @ 40 mls/hr Q24H IV Last administered on 04/15/17 16:14; Admin Dose 40 MLS/HR; Start 04/14/17 at 23:30 Pantoprazole (Protonix Iv) 40 mg BID@06,18 IV Last administered on 04/19/17 06 :22; Admin Dose 40 MG; Start 04/16/17 at 18:00 Morphine Sulfate (morphine) 2 mg Q6H PRN IV PAIN LEVEL 6-10 Last administered on 04/16/17 15:29; Admin Dose 2 MG; Start 04/16/17 at 10:00 Lorazepam (Ativan) 0.5 mg Q6H PRN IV ANXIETY Last administered on 04/19/17 11: 54; Admin Dose 0.5 MG; Start 04/16/17 at 13:00 Hydralazine HCl 10 mg 10 mg Q4H PRN IV sbp>160; Start 04/16/17 at 14:30 Colistimethate Sodium 75 mg/ Sodium Chloride 100 ml @ 200 mls/hr Q12 IVPB Last administered on 04/19/17 10:01; Admin Dose 200 MLS/HR; Start 04/16/17 at 21:00 Linezolid (Zyvox 600mg/D5W (Pmx)) 300 ml @ 300 mls/hr Q12 IVPB Last administered on 04/19/17 10:11; Admin Dose 300 MLS/HR; Start 04/17/17 at 11:30 Methylprednisolone Sodium Succinate (Solu-Medrol) 40 mg Q12 IV Last administered on 04/19/17 10:01; Admin Dose 40 MG; Start 04/17/17 at 21:00 Furosemide (Lasix) 20 mg DAILY@06 GTB Last administered on 04/19/17 06:23; Admin Dose 20 MG; Start 04/19/17 at 06:00 EVA STEELE NP Apr 19, 2017 15:35
--- NOTE | 2017-04-19 16:22 | CONS ---
Date/Time of Note Date/Time of Note DATE: 04/19/17 TIME: 16:20 Consult Date/Type/Reason Admit Date/Time Apr 13, 2017 at 13:23 Initial Consult Date 04/15/17 Type of Consultation: Pulm Subjective No events. Objective Vital Signs Date Time Temp Pulse Resp B/P Pulse Ox O2 Delivery O2 Flow Rate FiO2 04/19/17 16:19 98.8 82 18 122/73 96 04/19/17 11:50 5.0 28 04/18/17 20:21 Aerosol T Tube Intake and Output 04/18/17 04/18/17 04/19/17 14:59 22:59 06:59 Intake Total 560 ml 750 ml Balance 560 ml 750 ml Exam HEENT: Neck supple; no JVD; no LAD; + trach CVS: RRR, S1 and S2 CHEST: Clear ABD: Soft, NT, + BS EXT: No c/c/e Results/Medications Result Diagram: 04/18/17 0846 04/18/17 0846 Medications Current Medications Alprazolam (Xanax) 0.5 mg Q8H PRN GTB ANXIETY Last administered on 04/19/17 14 :44; Admin Dose 0.5 MG; Start 04/13/17 at 15:30 Amiodarone HCl (Cordarone) 200 mg DAILY GTB Last administered on 04/19/17 10: 02; Admin Dose 200 MG; Start 04/14/17 at 09:00 Aspirin (Halfprin) 81 mg DAILY PO Last administered on 04/19/17 10:03; Admin Dose 81 MG; Start 04/14/17 at 09:00 Atorvastatin Calcium (Lipitor) 40 mg QHS GTB Last administered on 04/18/17 21: 39; Admin Dose 40 MG; Start 04/13/17 at 21:00 Carvedilol (Coreg) 6.25 mg BID GTB Last administered on 04/19/17 10:02; Admin Dose 6.25 MG; Start 04/13/17 at 21:00 Losartan Potassium (Cozaar) 50 mg DAILY GTB Last administered on 04/19/17 10: 02; Admin Dose 50 MG; Start 04/14/17 at 09:00 Multivitamins Therapeutic (Theragran) 1 tab DAILY GTB Last administered on 04/19 10:03; Admin Dose 1 TAB; Start 04/14/17 at 09:00 Quetiapine Fumarate (Seroquel) 25 mg HS GTB Last administered on 04/18/17 21: 39; Admin Dose 25 MG; Start 04/13/17 at 21:00 Lactobacillus Acidophilus/ Rhamnosus (Culturelle) 1 cap TID PO Last administered on 04/19/17 13:04; Admin Dose 1 CAP; Start 04/13/17 at 21:00 Ondansetron HCl (Zofran Inj) 4 mg Q4H PRN IV NAUSEA AND/OR VOMITING; Start 04/13/17 at 15:30 Acetaminophen (Tylenol Tab) 650 mg Q6H PRN PO PAIN LEVEL 1-3 OR FEVER Last administered on 04/16/17 01:14; Admin Dose 650 MG; Start 04/13/17 at 15:30 Ferrous Sulfate (Slow Fe) 142 mg BID PO Last administered on 04/19/17 10:01; Admin Dose 142 MG; Start 04/14/17 at 21:00 Ascorbic Acid 500 mg 500 mg BID PO Last administered on 04/19/17 10:03; Admin Dose 500 MG; Start 04/14/17 at 21:00 Dextrose/Sodium Chloride (D5-1/2ns) 1,000 ml @ 40 mls/hr Q24H IV Last administered on 04/15/17 16:14; Admin Dose 40 MLS/HR; Start 04/14/17 at 23:30 Pantoprazole (Protonix Iv) 40 mg BID@06,18 IV Last administered on 04/19/17 06 :22; Admin Dose 40 MG; Start 04/16/17 at 18:00 Morphine Sulfate (morphine) 2 mg Q6H PRN IV PAIN LEVEL 6-10 Last administered on 04/16/17 15:29; Admin Dose 2 MG; Start 04/16/17 at 10:00 Lorazepam (Ativan) 0.5 mg Q6H PRN IV ANXIETY Last administered on 04/19/17 11: 54; Admin Dose 0.5 MG; Start 04/16/17 at 13:00 Hydralazine HCl 10 mg 10 mg Q4H PRN IV sbp>160; Start 04/16/17 at 14:30 Colistimethate Sodium 75 mg/ Sodium Chloride 100 ml @ 200 mls/hr Q12 IVPB Last administered on 04/19/17 10:01; Admin Dose 200 MLS/HR; Start 04/16/17 at 21:00 Linezolid (Zyvox 600mg/D5W (Pmx)) 300 ml @ 300 mls/hr Q12 IVPB Last administered on 04/19/17 10:11; Admin Dose 300 MLS/HR; Start 04/17/17 at 11:30 Methylprednisolone Sodium Succinate (Solu-Medrol) 40 mg Q12 IV Last administered on 04/19/17 10:01; Admin Dose 40 MG; Start 04/17/17 at 21:00 Furosemide (Lasix) 20 mg DAILY@06 GTB Last administered on 04/19/17 06:23; Admin Dose 20 MG; Start 04/19/17 at 06:00 Assessment/Plan Additional Assessment/Plan IMP: 1. CHF exacerbation with interval improvement. 2. UTI, currently on appropriate antibiotic regimen. 3. Chronic respiratory failure on T-piece. 4. Status post PEG tube placement. 5. Anemia RECS: 1. Resp hygiene 2. BD's/prn CPT ONEIL BELL MD Apr 19, 2017 16:21
[2017-04-19] MEDS: ATORVASTATIN 40 MG TAB GTB SCH (21:05)
[2017-04-19] MEDS: QUETIAPINE 25 MG TAB GTB SCH (21:05)
[2017-04-20] VITALS (11 sets, daily range): BP systolic 104–134; BP diastolic 57–73; PULSE 54–70; RESP 19–21
[2017-04-20] MEDS: FUROSEMIDE 20 MG TAB GTB SCH (05:22)
[2017-04-20] MEDS: PANTOPRAZOLE 40 MG INJ IV SCH ×2 (05:26→17:06)
[2017-04-20] MEDS: LEVOTHYROXINE 100 MCG TAB GTB SCH (06:30)
[2017-04-20] MEDS: MULTIVITAMINS THERAPEUTIC TAB GTB SCH (09:18)
[2017-04-20] MEDS: ASPIRIN (EC) 81 MG TAB PO SCH (09:18)
[2017-04-20] MEDS: METHYLPREDNISOLONE 40 MG INJ IV SCH ×2 (09:18→21:38)
[2017-04-20] MEDS: FERROUS SULFATE (SR) 142 MG TAB PO SCH ×2 (09:18→21:37)
[2017-04-20] MEDS: ASCORBIC ACID 500 MG TAB PO SCH ×2 (09:18→21:37)
[2017-04-20] MEDS: AMIODARONE 200 MG TAB GTB SCH (09:18)
[2017-04-20] MEDS: LACTOBACILLUS RHAMNOSUS CAP PO SCH ×3 (09:18→21:37)
[2017-04-20] MEDS: COLISTIMETHATE 75 MG in SOD CHLORIDE 0.9% 100 ML IVPB SCH ×2 (09:19→21:00)
[2017-04-20] MEDS: LINEZOLID 600 MG/D5W (PMX) 300 ML IVPB SCH ×2 (09:19→21:38)
[2017-04-20] MEDS: LOSARTAN 50 MG TAB GTB SCH (09:19)
[2017-04-20] MEDS: ALBUTEROL/IPRATROPIUM (NEB) 3 ML AMP INH SCH ×4 (09:40→20:34)
[2017-04-20] MEDS: morphine 2 MG INJ IV PRN (13:34)
--- NOTE | 2017-04-20 15:38 | CONS ---
Date/Time of Note Date/Time of Note DATE: 04/20/17 TIME: 15:37 Consult Date/Type/Reason Admit Date/Time Apr 13, 2017 at 13:23 Initial Consult Date 04/15/17 Type of Consultation: Pulm Subjective No events on TC Objective Vital Signs Date Time Temp Pulse Resp B/P Pulse Ox O2 Delivery O2 Flow Rate FiO2 04/20/17 13:32 5.0 28 04/20/17 13:32 64 20 98 Aerosol 04/20/17 12:11 98.3 131/69 Intake and Output 04/19/17 04/19/17 04/20/17 15:00 23:00 07:00 Intake Total 400 ml 650 ml 900 ml Balance 400 ml 650 ml 900 ml Exam HEENT: Neck supple; no JVD; no LAD; + trach CVS: RRR, S1 and S2 CHEST: Clear ABD: Soft, NT, + BS EXT: No c/c/e Results/Medications Result Diagram: 04/18/17 0846 04/18/17 0846 Medications Current Medications Alprazolam (Xanax) 0.5 mg Q8H PRN GTB ANXIETY Last administered on 04/19/17 14 :44; Admin Dose 0.5 MG; Start 04/13/17 at 15:30 Amiodarone HCl (Cordarone) 200 mg DAILY GTB Last administered on 04/20/17 09: 18; Admin Dose 200 MG; Start 04/14/17 at 09:00 Aspirin (Halfprin) 81 mg DAILY PO Last administered on 04/20/17 09:18; Admin Dose 81 MG; Start 04/14/17 at 09:00 Atorvastatin Calcium (Lipitor) 40 mg QHS GTB Last administered on 04/19/17 21: 05; Admin Dose 40 MG; Start 04/13/17 at 21:00 Carvedilol (Coreg) 6.25 mg BID GTB Last administered on 04/20/17 09:18; Admin Dose 6.25 MG; Start 04/13/17 at 21:00 Losartan Potassium (Cozaar) 50 mg DAILY GTB Last administered on 04/20/17 09: 19; Admin Dose 50 MG; Start 04/14/17 at 09:00 Multivitamins Therapeutic (Theragran) 1 tab DAILY GTB Last administered on 09:18; Admin Dose 1 TAB; Start 04/14/17 at 09:00 Quetiapine Fumarate (Seroquel) 25 mg HS GTB Last administered on 04/19/17 21: 05; Admin Dose 25 MG; Start 04/13/17 at 21:00 Lactobacillus Acidophilus/ Rhamnosus (Culturelle) 1 cap TID PO Last administered on 04/20/17 13:27; Admin Dose 1 CAP; Start 04/13/17 at 21:00 Ondansetron HCl (Zofran Inj) 4 mg Q4H PRN IV NAUSEA AND/OR VOMITING; Start 04/13/17 at 15:30 Acetaminophen (Tylenol Tab) 650 mg Q6H PRN PO PAIN LEVEL 1-3 OR FEVER Last administered on 04/16/17 01:14; Admin Dose 650 MG; Start 04/13/17 at 15:30 Ferrous Sulfate (Slow Fe) 142 mg BID PO Last administered on 04/20/17 09:18; Admin Dose 142 MG; Start 04/14/17 at 21:00 Ascorbic Acid 500 mg 500 mg BID PO Last administered on 04/20/17 09:18; Admin Dose 500 MG; Start 04/14/17 at 21:00 Dextrose/Sodium Chloride (D5-1/2ns) 1,000 ml @ 40 mls/hr Q24H IV Last administered on 04/15/17 16:14; Admin Dose 40 MLS/HR; Start 04/14/17 at 23:30 Pantoprazole (Protonix Iv) 40 mg BID@06,18 IV Last administered on 04/20/17 05:26; Admin Dose 40 MG; Start 04/16/17 at 18:00 Morphine Sulfate (morphine) 2 mg Q6H PRN IV PAIN LEVEL 6-10 Last administered on 04/20/17 13:34; Admin Dose 2 MG; Start 04/16/17 at 10:00 Lorazepam (Ativan) 0.5 mg Q6H PRN IV ANXIETY Last administered on 04/19/17 11: 54; Admin Dose 0.5 MG; Start 04/16/17 at 13:00 Hydralazine HCl 10 mg 10 mg Q4H PRN IV sbp>160; Start 04/16/17 at 14:30 Colistimethate Sodium 75 mg/ Sodium Chloride 100 ml @ 200 mls/hr Q12 IVPB Last administered on 04/20/17 09:19; Admin Dose 200 MLS/HR; Start 04/16/17 at 21:00 Linezolid (Zyvox 600mg/D5W (Pmx)) 300 ml @ 300 mls/hr Q12 IVPB Last administered on 04/20/17 09:19; Admin Dose 300 MLS/HR; Start 04/17/17 at 11:30 Methylprednisolone Sodium Succinate (Solu-Medrol) 40 mg Q12 IV Last administered on 04/20/17 09:18; Admin Dose 40 MG; Start 04/17/17 at 21:00 Furosemide (Lasix) 20 mg DAILY@06 GTB Last administered on 04/19/17 06:23; Admin Dose 20 MG; Start 04/19/17 at 06:00 Assessment/Plan Additional Assessment/Plan IMP: 1. CHF exacerbation 2. UTI 3. Chronic respiratory failure on T-piece. 4. Status post PEG tube placement. 5. Anemia RECS: 1. Resp hygiene 2. BD's/prn CPT 3. PT/OT ONEIL BELL MD Apr 20, 2017 15:38
[2017-04-20] MEDS: DEXTROSE 5%-0.45% NACL 1,000 ML IV SCH (15:45)
[2017-04-20] MEDS: ACETAMINOPHEN 325 MG TAB PO PRN (17:05)
[2017-04-20] MEDS: ALPRAZOLAM 0.5 MG TAB GTB PRN (17:05)
--- NOTE | 2017-04-20 18:53 | PN ---
Date/Time of Note Date/Time of Note DATE: 04/20/17 TIME: 18:53 Assessment/Plan VTE Prophylaxis VTE Prophylaxis Intervention: SCD's Lines/Catheters Urinary Cath still in place: No Assessment/Plan Chief Complaint/Hosp Course 1. Peg tube dysfunction -PEG tube now functioning, have started tube feeds -If leakage around PEG tube insertion site persists the patient will need to have revision to a PEJ -Consultation with Dr. Ibarra appreciated 2. Coffee Ground Leakage -patient has extensive hiatal hernia surgery history, spoke with provider at [facility] , recent surgery done in september. Stitches still present on patient's left flank, patient's healthcare group and provider at [facility] notified, who will make arrangements that the surgeon who performed surgery will see patient in SNF to address -monitor hgb, questionable GI bleed due to low hgb -patient has history of coffee ground leakage per [facility] provider -pending GI recs 3. Acute respiratory distress secondary to low hgb and HF - likely 2/2 low hgb and component of heart failure -cardiology consulted, bnp elevated -Continue Lasix -spoke with physicians at [facility], patient has known small bilateral effusions and has chronic severe secretions, which is the main reason she can not be taken off the trach. 4. UTI secondary to multidrug-resistant Klebsiella and VRE -Colistin for Klebsiella -Zyvox for enterococcus -ID consultation obtained 5. Anemia secondary to chronic disease - FOBT negative 6. Dehydration -resolved -free water through the peg tube once fixed, IV for now, low due to volume overload 7. Hypertension - continue home medications when able 8. Hypothyroidism - Continue on home levothyroxine unable 9. Chronic Trach/PEG - placed CM consult for evaluation for [facility] for trach capping trial once stable for discharge 10. Nondisplaced fractures of ribs -chronic, monitor 11. Thrombocytosis - most likely reactive Prophylaxis: SCDs DC planning:-Patient will need colistin and Zyvox upon DC, case folder aware and will try to arrange at longterm Problems: Subjective 24 Hr Interval Summary Constitutional: no complaints Exam/Review of Systems Vital Signs Vitals Vital Signs Date Time Temp Pulse Resp B/P Pulse Ox O2 Delivery O2 Flow Rate FiO2 04/20/17 16:00 54 04/20/17 15:59 98.1 19 116/73 99 04/20/17 13:32 5.0 28 04/20/17 13:32 Aerosol Intake and Output 04/19/17 04/19/17 04/20/17 14:59 22:59 06:59 Intake Total 400 ml 650 ml 900 ml Balance 400 ml 650 ml 900 ml Exam Constitutional: alert Respiratory: clear to auscultation Cardiovascular: regular rate and rhythm Gastrointestinal: soft, No distended Musculoskeletal: nl extremities to inspection Results Result Diagram: 04/18/1746 04/18/17 0846 Medications Medications Current Medications Alprazolam (Xanax) 0.5 mg Q8H PRN GTB ANXIETY Last administered on 04/20/17 17:05; Admin Dose 0.5 MG; Start 04/13/17 at 15:30 Amiodarone HCl (Cordarone) 200 mg DAILY GTB Last administered on 04/20/17 09: 18; Admin Dose 200 MG; Start 04/14/17 at 09:00 Aspirin (Halfprin) 81 mg DAILY PO Last administered on 04/20/17 09:18; Admin Dose 81 MG; Start 04/14/17 at 09:00 Atorvastatin Calcium (Lipitor) 40 mg QHS GTB Last administered on 04/19/17 21: 05; Admin Dose 40 MG; Start 04/13/17 at 21:00 Carvedilol (Coreg) 6.25 mg BID GTB Last administered on 04/20/17 09:18; Admin Dose 6.25 MG; Start 04/13/17 at 21:00 Losartan Potassium (Cozaar) 50 mg DAILY GTB Last administered on 04/20/17 09: 19; Admin Dose 50 MG; Start 04/14/17 at 09:00 Multivitamins Therapeutic (Theragran) 1 tab DAILY GTB Last administered on 09:18; Admin Dose 1 TAB; Start 04/14/17 at 09:00 Quetiapine Fumarate (Seroquel) 25 mg HS GTB Last administered on 04/19/17 21: 05; Admin Dose 25 MG; Start 04/13/17 at 21:00 Lactobacillus Acidophilus/ Rhamnosus (Culturelle) 1 cap TID PO Last administered on 04/20/17 13:27; Admin Dose 1 CAP; Start 04/13/17 at 21:00 Ondansetron HCl (Zofran Inj) 4 mg Q4H PRN IV NAUSEA AND/OR VOMITING; Start 04/13/17 at 15:30 Acetaminophen (Tylenol Tab) 650 mg Q6H PRN PO PAIN LEVEL 1-3 OR FEVER Last administered on 04/20/17 17:05; Admin Dose 650 MG; Start 04/13/17 at 15:30 Ferrous Sulfate (Slow Fe) 142 mg BID PO Last administered on 04/20/17 09:18; Admin Dose 142 MG; Start 04/14/17 at 21:00 Ascorbic Acid 500 mg 500 mg BID PO Last administered on 04/20/17 09:18; Admin Dose 500 MG; Start 04/14/17 at 21:00 Dextrose/Sodium Chloride (D5-1/2ns) 1,000 ml @ 40 mls/hr Q24H IV Last administered on 04/15/17 16:14; Admin Dose 40 MLS/HR; Start 04/14/17 at 23:30 Pantoprazole (Protonix Iv) 40 mg BID@06,18 IV Last administered on 04/20/17 17:06; Admin Dose 40 MG; Start 04/16/17 at 18:00 Morphine Sulfate (morphine) 2 mg Q6H PRN IV PAIN LEVEL 6-10 Last administered on 04/20/17 13:34; Admin Dose 2 MG; Start 04/16/17 at 10:00 Lorazepam (Ativan) 0.5 mg Q6H PRN IV ANXIETY Last administered on 04/19/17 11: 54; Admin Dose 0.5 MG; Start 04/16/17 at 13:00 Hydralazine HCl 10 mg 10 mg Q4H PRN IV sbp>160; Start 04/16/17 at 14:30 Colistimethate Sodium 75 mg/ Sodium Chloride 100 ml @ 200 mls/hr Q12 IVPB Last administered on 04/20/17 09:19; Admin Dose 200 MLS/HR; Start 04/16/17 at 21:00 Linezolid (Zyvox 600mg/D5W (Pmx)) 300 ml @ 300 mls/hr Q12 IVPB Last administered on 04/20/17 09:19; Admin Dose 300 MLS/HR; Start 04/17/17 at 11:30 Methylprednisolone Sodium Succinate (Solu-Medrol) 40 mg Q12 IV Last administered on 04/20/17 09:18; Admin Dose 40 MG; Start 04/17/17 at 21:00 Furosemide (Lasix) 20 mg DAILY@06 GTB Last administered on 04/19/17 06:23; Admin Dose 20 MG; Start 04/19/17 at 06:00 ABE GALLOWAY Apr 20, 2017 18:53
[2017-04-20] MEDS: QUETIAPINE 25 MG TAB GTB SCH (21:37)
[2017-04-20] MEDS: ATORVASTATIN 40 MG TAB GTB SCH (21:37)
[2017-04-21] VITALS (11 sets, daily range): BP systolic 116–157; BP diastolic 63–89; PULSE 51–66; RESP 18–20
[2017-04-21] MEDS: ALPRAZOLAM 0.5 MG TAB GTB PRN (00:22)
[2017-04-21] MEDS: PANTOPRAZOLE 40 MG INJ IV SCH ×2 (06:05→17:05)
[2017-04-21] MEDS: FUROSEMIDE 20 MG TAB GTB SCH (06:06)
[2017-04-21] MEDS: LEVOTHYROXINE 100 MCG TAB GTB SCH (06:06)
[2017-04-21] MEDS: METHYLPREDNISOLONE 40 MG INJ IV SCH ×2 (09:23→20:31)
[2017-04-21] MEDS: FERROUS SULFATE (SR) 142 MG TAB PO SCH ×2 (09:23→20:51)
[2017-04-21] MEDS: AMIODARONE 200 MG TAB GTB SCH (09:23)
[2017-04-21] MEDS: LACTOBACILLUS RHAMNOSUS CAP PO SCH ×3 (09:23→20:50)
[2017-04-21] MEDS: MULTIVITAMINS THERAPEUTIC TAB GTB SCH (09:24)
[2017-04-21] MEDS: LINEZOLID 600 MG/D5W (PMX) 300 ML IVPB SCH ×2 (09:24→20:31)
[2017-04-21] MEDS: LOSARTAN 50 MG TAB GTB SCH (09:24)
[2017-04-21] MEDS: ASCORBIC ACID 500 MG TAB PO SCH ×2 (09:24→20:50)
[2017-04-21] MEDS: ASPIRIN (EC) 81 MG TAB PO SCH (09:24)
[2017-04-21] MEDS: COLISTIMETHATE 75 MG in SOD CHLORIDE 0.9% 100 ML IVPB SCH ×2 (09:25→20:38)
[2017-04-21] MEDS: ALBUTEROL/IPRATROPIUM (NEB) 3 ML AMP INH SCH ×4 (09:45→21:12)
--- NOTE | 2017-04-21 10:53 | CONS ---
Date/Time of Note Date/Time of Note DATE: 04/21/17 TIME: 10:51 Assessment/Plan Assessment/Plan Chief Complaint/Hosp Course Consultation dictated #[id number]. Continue current treatment. Problems: Additional Assessment/Plan Assessment and recommendations; 1. Patient admitted with CHF exacerbation with superimposed pneumonia, off antibiotics now. 2. Chronic respiratory failure, patient however doing very well on T-piece. Status post diaphragmatic hernia repair with significant persistent hiatal hernia. 3. Anemia. Next Continue current treatment. Consider discharge. Consultation Date/Type/Reason Admit Date/Time Apr 13, 2017 at 13:23 Initial Consult Date 04/15/17 Type of Consultation: Pulm 24 HR Interval Summary Free Text/Dictation Patient's condition is stable. Denies any significant shortness of breath. Complains of very scant cough. Denies any chest pain, fever or chills. General exam; elderly woman, awake alert. Currently in no distress. Exam/Review of Systems Vital Signs Vitals Vital Signs Date Time Temp Pulse Resp B/P Pulse Ox O2 Delivery O2 Flow Rate FiO2 04/21/17 09:48 72 20 98 Aerosol 5.0 28 04/21/17 07:33 98.0 157/82 Intake and Output 04/20/17 04/20/17 04/21/17 15:00 23:00 07:00 Intake Total 100 ml 1290 ml 600 ml Balance 100 ml 1290 ml 600 ml Exam HEENT exam; supple neck, no lymphadenopathy. Positive JVD. No neck masses. Trachea ostomy in place. Attached to T-piece. Patient has fair dentition. Chest exam; diminished but clear breath sounds. S1-S2 audible, no murmurs. Regular rhythm. Abdomen exam; soft, nondistended. Nontender. G-tube in place. Bowel sounds audible. Extremity exam; no edema. OPHTHALMIC TECHNOLOGIST exam; no focal motor deficit. Results Result Diagram: 04/18/1784504/18/17845 Medications Medications Current Medications Alprazolam (Xanax) 0.5 mg Q8H PRN GTB ANXIETY Last administered on 04/21/17 00:22; Admin Dose 0.5 MG; Start 04/13/17 at 15:30 Amiodarone HCl (Cordarone) 200 mg DAILY GTB Last administered on 04/21/17 09: 23; Admin Dose 200 MG; Start 04/14/17 at 09:00 Aspirin (Halfprin) 81 mg DAILY PO Last administered on 04/21/17 09:24; Admin Dose 81 MG; Start 04/14/17 at 09:00 Atorvastatin Calcium (Lipitor) 40 mg QHS GTB Last administered on 04/20/17 21 :37; Admin Dose 40 MG; Start 04/13/17 at 21:00 Carvedilol (Coreg) 6.25 mg BID GTB Last administered on 04/21/17 09:23; Admin Dose 6.25 MG; Start 04/13/17 at 21:00 Losartan Potassium (Cozaar) 50 mg DAILY GTB Last administered on 04/21/17 09: 24; Admin Dose 50 MG; Start 04/14/17 at 09:00 Multivitamins Therapeutic (Theragran) 1 tab DAILY GTB Last administered on 09:24; Admin Dose 1 TAB; Start 04/14/17 at 09:00 Quetiapine Fumarate (Seroquel) 25 mg HS GTB Last administered on 04/20/17 21: 37; Admin Dose 25 MG; Start 04/13/17 at 21:00 Lactobacillus Acidophilus/ Rhamnosus (Culturelle) 1 cap TID PO Last administered on 04/21/17 09:23; Admin Dose 1 CAP; Start 04/13/17 at 21:00 Ondansetron HCl (Zofran Inj) 4 mg Q4H PRN IV NAUSEA AND/OR VOMITING; Start 04/13/17 at 15:30 Acetaminophen (Tylenol Tab) 650 mg Q6H PRN PO PAIN LEVEL 1-3 OR FEVER Last administered on 04/20/17 17:05; Admin Dose 650 MG; Start 04/13/17 at 15:30 Ferrous Sulfate (Slow Fe) 142 mg BID PO Last administered on 04/21/17 09:23; Admin Dose 142 MG; Start 04/14/17 at 21:00 Ascorbic Acid 500 mg 500 mg BID PO Last administered on 04/21/17 09:24; Admin Dose 500 MG; Start 04/14/17 at 21:00 Dextrose/Sodium Chloride (D5-1/2ns) 1,000 ml @ 40 mls/hr Q24H IV Last administered on 04/15/17 16:14; Admin Dose 40 MLS/HR; Start 04/14/17 at 23:30 Pantoprazole (Protonix Iv) 40 mg BID@06,18 IV Last administered on 04/21/17 06:05; Admin Dose 40 MG; Start 04/16/17 at 18:00 Morphine Sulfate (morphine) 2 mg Q6H PRN IV PAIN LEVEL 6-10 Last administered on 04/20/17 13:34; Admin Dose 2 MG; Start 04/16/17 at 10:00 Lorazepam (Ativan) 0.5 mg Q6H PRN IV ANXIETY Last administered on 04/19/17 11: 54; Admin Dose 0.5 MG; Start 04/16/17 at 13:00 Hydralazine HCl 10 mg 10 mg Q4H PRN IV sbp>160; Start 04/16/17 at 14:30 Colistimethate Sodium 75 mg/ Sodium Chloride 100 ml @ 200 mls/hr Q12 IVPB Last administered on 04/21/17 09:25; Admin Dose 200 MLS/HR; Start 04/16/17 at 21:00 Linezolid (Zyvox 600mg/D5W (Pmx)) 300 ml @ 300 mls/hr Q12 IVPB Last administered on 04/21/17 09:24; Admin Dose 300 MLS/HR; Start 04/17/17 at 11:30 Methylprednisolone Sodium Succinate (Solu-Medrol) 40 mg Q12 IV Last administered on 04/21/17 09:23; Admin Dose 40 MG; Start 04/17/17 at 21:00 Furosemide (Lasix) 20 mg DAILY@06 GTB Last administered on 04/21/17 06:06; Admin Dose 20 MG; Start 04/19/17 at 06:00 ALLISON DONOHUE Apr 21, 2017 10:53
[2017-04-21] MEDS ORDERED: BARIUM SULFATE 135 ML (E-Z HD) PO ONE (11:21)
--- NOTE | 2017-04-21 14:46 | CONS ---
Date/Time of Note Date/Time of Note DATE: 04/21/17 TIME: 14:44 Assessment/Plan Assessment/Plan Chief Complaint/Hosp Course SUBJECTIVE: No acute events, tube feeding on hold secondary to significant leakage around the site, no fevers, looks comfortable IN-DWELLINGS: Trach, PEG. MICROBIOLOGY: Urine culture growing MDR Klebsiella pneumoniae and VRE. Antibiotics: Zyvox, colistin DIAGNOSTICS: CT of the abdomen and pelvis on admission revealed bilateral pleural effusion with bilateral lower lobe consolidation, pneumonia not excluded , small loculated inferior left pleural effusion, questionable small empyema, mild perihepatic ascites, no evidence of bowel obstruction, no definite intra- abdominal focal fluid collections, a percutaneous G-tube in place, a large hiatal hernia. PHYSICAL EXAMINATION: GENERAL: Fragile, elderly woman who is in no distress. HEENT: Head atraumatic, normocephalic. NECK: Supple. CHEST: Rise symmetrical. Breath sounds with scattered rhonchi. HEART: S1, S2. ABDOMEN: Soft, bowel tones present. EXTREMITIES: With trace edema. ASSESSMENT: 1. Systemic inflammatory response syndrome. 2. Multidrug resistant polymicrobial urinary tract infection. 3. G-tube malfunction. 4. Interstitial lung disease. 5. Mild pulmonary edema. 6. Anemia and thrombocytosis PLAN: The patient remains stable. Continue present care, antibiotics, f/u labs in am. GI recommendations, skin care around GT site. Discussed with staff Problems: Consultation Date/Type/Reason Admit Date/Time Apr 13, 2017 at 13:23 Initial Consult Date 04/15/17 Type of Consultation: ID Exam/Review of Systems Vital Signs Vitals Vital Signs Date Time Temp Pulse Resp B/P Pulse Ox O2 Delivery O2 Flow Rate FiO2 04/21/17 14:04 5.0 28 04/21/17 13:09 78 20 97 Aerosol 04/21/17 11:54 98.1 123/77 Intake and Output 04/20/17 04/20/17 04/21/17 14:59 22:59 06:59 Intake Total 100 ml 1290 ml 600 ml Balance 100 ml 1290 ml 600 ml Results Result Diagram: 04/18/17 0846 04/18/17 0846 Medications Medications Current Medications Alprazolam (Xanax) 0.5 mg Q8H PRN GTB ANXIETY Last administered on 04/21/17t 00:22; Admin Dose 0.5 MG; Start 04/13/17 at 15:30 Amiodarone HCl (Cordarone) 200 mg DAILY GTB Last administered on 04/21/17 09: 23; Admin Dose 200 MG; Start 04/14/17 at 09:00 Aspirin (Halfprin) 81 mg DAILY PO Last administered on 04/21/17 09:24; Admin Dose 81 MG; Start 04/14/17 at 09:00 Atorvastatin Calcium (Lipitor) 40 mg QHS GTB Last administered on 04/20/17 21 :37; Admin Dose 40 MG; Start 04/13/17 at 21:00 Carvedilol (Coreg) 6.25 mg BID GTB Last administered on 04/21/17 09:23; Admin Dose 6.25 MG; Start 04/13/17 at 21:00 Losartan Potassium (Cozaar) 50 mg DAILY GTB Last administered on 04/21/17 09: 24; Admin Dose 50 MG; Start 04/14/17 at 09:00 Multivitamins Therapeutic (Theragran) 1 tab DAILY GTB Last administered on 09:24; Admin Dose 1 TAB; Start 04/14/17 at 09:00 Quetiapine Fumarate (Seroquel) 25 mg HS GTB Last administered on 04/20/17 21: 37; Admin Dose 25 MG; Start 04/13/17 at 21:00 Lactobacillus Acidophilus/ Rhamnosus (Culturelle) 1 cap TID PO Last administered on 04/21/17 09:23; Admin Dose 1 CAP; Start 04/13/17 at 21:00 Ondansetron HCl (Zofran Inj) 4 mg Q4H PRN IV NAUSEA AND/OR VOMITING; Start 04/13/17 at 15:30 Acetaminophen (Tylenol Tab) 650 mg Q6H PRN PO PAIN LEVEL 1-3 OR FEVER Last administered on 04/20/17 17:05; Admin Dose 650 MG; Start 04/13/17 at 15:30 Ferrous Sulfate (Slow Fe) 142 mg BID PO Last administered on 04/21/17 09:23; Admin Dose 142 MG; Start 04/14/17 at 21:00 Ascorbic Acid 500 mg 500 mg BID PO Last administered on 04/21/17 09:24; Admin Dose 500 MG; Start 04/14/17 at 21:00 Dextrose/Sodium Chloride (D5-1/2ns) 1,000 ml @ 40 mls/hr Q24H IV Last administered on 04/15/17 16:14; Admin Dose 40 MLS/HR; Start 04/14/17 at 23:30 Pantoprazole (Protonix Iv) 40 mg BID@06,18 IV Last administered on 04/21/17 06:05; Admin Dose 40 MG; Start 04/16/17 at 18:00 Morphine Sulfate (morphine) 2 mg Q6H PRN IV PAIN LEVEL 6-10 Last administered on 04/20/17 13:34; Admin Dose 2 MG; Start 04/16/17 at 10:00 Lorazepam (Ativan) 0.5 mg Q6H PRN IV ANXIETY Last administered on 04/19/17 11: 54; Admin Dose 0.5 MG; Start 04/16/17 at 13:00 Hydralazine HCl 10 mg 10 mg Q4H PRN IV sbp>160; Start 04/16/17 at 14:30 Colistimethate Sodium 75 mg/ Sodium Chloride 100 ml @ 200 mls/hr Q12 IVPB Last administered on 04/21/17 09:25; Admin Dose 200 MLS/HR; Start 04/16/17 at 21:00 Linezolid (Zyvox 600mg/D5W (Pmx)) 300 ml @ 300 mls/hr Q12 IVPB Last administered on 04/21/17 09:24; Admin Dose 300 MLS/HR; Start 04/17/17 at 11:30 Methylprednisolone Sodium Succinate (Solu-Medrol) 40 mg Q12 IV Last administered on 04/21/17 09:23; Admin Dose 40 MG; Start 04/17/17 at 21:00 Furosemide (Lasix) 20 mg DAILY@06 GTB Last administered on 04/21/17 06:06; Admin Dose 20 MG; Start 04/19/17 at 06:00 JAY JAY GIVENS NP Apr 21, 2017 14:46
[2017-04-21] MEDS: DEXTROSE 5%-0.45% NACL 1,000 ML IV SCH (15:45)
[2017-04-21 15:55] LABS: ABNORMAL IP MESSAGE 1; BASOPHILS % 0.1 % (0.0-2.0); HEMATOCRIT 32.2 % (37.0-47.0); HEMOGLOBIN 10.4 g/dl (12.0-16.0); LYMPHOCYTES # 0.4 10^3/ul (0.8-2.9); LYMPHOCYTES % 2.9 % (15.0-51.0); MEAN CORPUSCULAR HEMOGLOBIN 29.5 pg (29.0-33.0); MEAN CORPUSCULAR HGB CONC 32.3 g/dl (32.0-37.0); MEAN CORPUSCULAR VOLUME 91.5 fl (82.0-101.0); MEAN PLATELET VOLUME 10.9 fl (7.4-10.4); MONOCYTE # 0.4 10^3/ul (0.3-0.9); MONOCYTES % 2.8 % (0.0-11.0); NEUTROPHIL # 12.8 10^3/ul (1.6-7.5); NEUTROPHILS % 93.6 % (39.0-77.0); PLATELET COUNT 319 10^3/UL (140-415); RED BLOOD COUNT 3.52 10^6/ul (4.20-5.40); RED CELL DISTRIBUTION WIDTH 17.2 % (11.5-14.5); WHITE BLOOD COUNT 13.7 10^3/ul (4.8-10.8)
[2017-04-21 16:02] LABS: POSITIVE DIFF @See below
--- NOTE | 2017-04-21 16:14 | CONS ---
Date/Time of Note Date/Time of Note DATE: 04/21/17 TIME: 16:13 Assessment/Plan Assessment/Plan Additional Assessment/Plan Acute blood loss anemia status post blood transfusion Acute decompensated diastolic congestive heart failure Chronic respiratory failure Paroxysmal atrial fibrillation, currently sinus Hypertension -Patient currently receiving medications via PEG. Blood pressure trend overall better, continue maintenance Lasix. Consultation Date/Type/Reason Admit Date/Time Apr 13, 2017 at 13:23 Initial Consult Date 04/15/17 Type of Consultation: cv 24 HR Interval Summary Free Text/Dictation Complaining of cough with secretions, denies chest pain Exam/Review of Systems Vital Signs Vitals Vital Signs Date Time Temp Pulse Resp B/P Pulse Ox O2 Delivery O2 Flow Rate FiO2 04/21/17 16:11 66 04/21/17 15:57 98.1 20 140/89 99 04/21/17 14:04 5.0 28 04/21/17 13:09 Aerosol Intake and Output 04/20/17 04/20/17 04/21/17 15:00 23:00 07:00 Intake Total 100 ml 1290 ml 600 ml Balance 100 ml 1290 ml 600 ml Exam No apparent distress Constitutional: alert, oriented Head: normocephalic Neck: other (Tracheostomy) Respiratory: other (Coarse breath sounds bilaterally, no wheezing) Cardiovascular: other (S1-S2 heard), regular rate and rhythm Gastrointestinal: bowel sounds, non-tender, soft Extremities: edema (Trace) Results Result Diagram: 04/21/17 1518 04/18/17 0846 Results 24 hrs Laboratory Tests Test 04/21/17 15:18 White Blood Count 13.7 #H Red Blood Count 3.52 L Hemoglobin 10.4 L Hematocrit 32.2 L Mean Corpuscular Volume 91.5 Mean Corpuscular Hemoglobin 29.5 Mean Corpuscular Hemoglobin Concent 32.3 Red Cell Distribution Width 17.2 H Platelet Count 319 # Mean Platelet Volume 10.9 H Neutrophils % 93.6 H Lymphocytes % 2.9 L Monocytes % 2.8 Eosinophils % 0.0 Basophils % 0.1 Nucleated Red Blood Cells % 0.0 Neutrophils # 12.8 H Lymphocytes # 0.4 L Monocytes # 0.4 Eosinophils # 0.0 Basophils # 0.0 Nucleated Red Blood Cells # 0.0 Medications Medications Current Medications Alprazolam (Xanax) 0.5 mg Q8H PRN GTB ANXIETY Last administered on 04/21/17 00:22; Admin Dose 0.5 MG; Start 04/13/17 at 15:30 Amiodarone HCl (Cordarone) 200 mg DAILY GTB Last administered on 04/21/17 09: 23; Admin Dose 200 MG; Start 04/14/17 at 09:00 Aspirin (Halfprin) 81 mg DAILY PO Last administered on 04/21/17 09:24; Admin Dose 81 MG; Start 04/14/17 at 09:00 Atorvastatin Calcium (Lipitor) 40 mg QHS GTB Last administered on 04/20/17 21 :37; Admin Dose 40 MG; Start 04/13/17 at 21:00 Carvedilol (Coreg) 6.25 mg BID GTB Last administered on 04/21/17 09:23; Admin Dose 6.25 MG; Start 04/13/17 at 21:00 Losartan Potassium (Cozaar) 50 mg DAILY GTB Last administered on 04/21/17 09: 24; Admin Dose 50 MG; Start 04/14/17 at 09:00 Multivitamins Therapeutic (Theragran) 1 tab DAILY GTB Last administered on 09:24; Admin Dose 1 TAB; Start 04/14/17 at 09:00 Quetiapine Fumarate (Seroquel) 25 mg HS GTB Last administered on 04/20/17 21: 37; Admin Dose 25 MG; Start 04/13/17 at 21:00 Lactobacillus Acidophilus/ Rhamnosus (Culturelle) 1 cap TID PO Last administered on 04/21/17 09:23; Admin Dose 1 CAP; Start 04/13/17 at 21:00 Ondansetron HCl (Zofran Inj) 4 mg Q4H PRN IV NAUSEA AND/OR VOMITING; Start 04/13/17 at 15:30 Acetaminophen (Tylenol Tab) 650 mg Q6H PRN PO PAIN LEVEL 1-3 OR FEVER Last administered on 04/20/17 17:05; Admin Dose 650 MG; Start 04/13/17 at 15:30 Ferrous Sulfate (Slow Fe) 142 mg BID PO Last administered on 04/21/17 09:23; Admin Dose 142 MG; Start 04/14/17 at 21:00 Ascorbic Acid 500 mg 500 mg BID PO Last administered on 04/21/17 09:24; Admin Dose 500 MG; Start 04/14/17 at 21:00 Dextrose/Sodium Chloride (D5-1/2ns) 1,000 ml @ 40 mls/hr Q24H IV Last administered on 04/15/17 16:14; Admin Dose 40 MLS/HR; Start 04/14/17 at 23:30 Pantoprazole (Protonix Iv) 40 mg BID@06,18 IV Last administered on 04/21/17 06:05; Admin Dose 40 MG; Start 04/16/17 at 18:00 Morphine Sulfate (morphine) 2 mg Q6H PRN IV PAIN LEVEL 6-10 Last administered on 04/20/17 13:34; Admin Dose 2 MG; Start 04/16/17 at 10:00 Lorazepam (Ativan) 0.5 mg Q6H PRN IV ANXIETY Last administered on 04/19/17 11: 54; Admin Dose 0.5 MG; Start 04/16/17 at 13:00 Hydralazine HCl 10 mg 10 mg Q4H PRN IV sbp>160; Start 04/16/17 at 14:30 Colistimethate Sodium 75 mg/ Sodium Chloride 100 ml @ 200 mls/hr Q12 IVPB Last administered on 04/21/17 09:25; Admin Dose 200 MLS/HR; Start 04/16/17 at 21:00 Linezolid (Zyvox 600mg/D5W (Pmx)) 300 ml @ 300 mls/hr Q12 IVPB Last administered on 04/21/17 09:24; Admin Dose 300 MLS/HR; Start 04/17/17 at 11:30 Methylprednisolone Sodium Succinate (Solu-Medrol) 40 mg Q12 IV Last administered on 04/21/17 09:23; Admin Dose 40 MG; Start 04/17/17 at 21:00 Furosemide (Lasix) 20 mg DAILY@06 GTB Last administered on 04/21/17 06:06; Admin Dose 20 MG; Start 04/19/17 at 06:00 Ernesto Jon DO Apr 21, 2017 16:14
[2017-04-21 16:27] LABS: CALCIUM 8.4 mg/dl (8.4-10.2); CREATININE 0.78 mg/dl (0.44-1.00); POTASSIUM 4.2 mmol/L (3.5-5.1)
--- NOTE | 2017-04-21 17:07 | PN ---
Date/Time of Note Date/Time of Note DATE: 04/21/17 TIME: 17:06 Assessment/Plan VTE Prophylaxis VTE Prophylaxis Intervention: LMWH Lines/Catheters IV Catheter Type (from Nrs): PICC Line Central line still needed: Yes Urinary Cath still in place: No Reason Cath still needed: urinary retention Assessment/Plan Chief Complaint/Hosp Course 1. Peg tube dysfunction -PEG tube now functioning, have started tube feeds -leakage around PEG tube insertion site persists. Consultation with Dr. Ibarra appreciated 2. Coffee Ground Leakage -patient has extensive hiatal hernia surgery history, spoke with provider at [facility] , recent surgery done in september. Stitches still present on patient's left flank, patient's healthcare group and provider at [facility] notified, who will make arrangements that the surgeon who performed surgery will see patient in SNF to address -monitor hgb, questionable GI bleed due to low hgb -patient has history of coffee ground leakage per [facility] provider -pending GI recs 3. Acute respiratory distress secondary to low hgb and HF - likely 2/2 low hgb and component of heart failure -cardiology consulted, bnp elevated -Continue Lasix -spoke with physicians at [facility], patient has known small bilateral effusions and has chronic severe secretions, which is the main reason she can not be taken off the trach. 4. UTI secondary to multidrug-resistant Klebsiella and VRE -Colistin for Klebsiella -Zyvox for enterococcus -ID consultation obtained 5. Anemia secondary to chronic disease - FOBT negative 6. Dehydration -resolved -free water through the peg tube once fixed, IV for now, low due to volume overload 7. Hypertension - continue home medications when able 8. Hypothyroidism - Continue on home levothyroxine unable 9. Chronic Trach/PEG - placed CM consult for evaluation for [facility] for trach capping trial once stable for discharge 10. Nondisplaced fractures of ribs -chronic, monitor 11. Thrombocytosis - most likely reactive Prophylaxis: SCDs DC planning:-Patient will need colistin and Zyvox upon DC, case technician aware and will try to arrange at correction Problems: Subjective 24 Hr Interval Summary Free Text/Dictation PEG leaking, Dr Ibarra to see the patient Otherwise stable for dc to SNF Exam/Review of Systems Vital Signs Vitals Vital Signs Date Time Temp Pulse Resp B/P Pulse Ox O2 Delivery O2 Flow Rate FiO2 04/21/17 16:18 82 20 8 Aerosol 5.0 28 04/21/17 15:57 98.1 140/89 Intake and Output 04/20/17 04/20/17 04/21/17 15:00 23:00 07:00 Intake Total 100 ml 1290 ml 600 ml Balance 100 ml 1290 ml 600 ml Results Result Diagram: 04/21/17 1518 04/21/17 1518 Results 24 hrs Laboratory Tests Test 04/21/17 15:18 White Blood Count 13.7 #H Red Blood Count 3.52 L Hemoglobin 10.4 L Hematocrit 32.2 L Mean Corpuscular Volume 91.5 Mean Corpuscular Hemoglobin 29.5 Mean Corpuscular Hemoglobin Concent 32.3 Red Cell Distribution Width 17.2 H Platelet Count 319 # Mean Platelet Volume 10.9 H Neutrophils % 93.6 H Lymphocytes % 2.9 L Monocytes % 2.8 Eosinophils % 0.0 Basophils % 0.1 Nucleated Red Blood Cells % 0.0 Neutrophils # 12.8 H Lymphocytes # 0.4 L Monocytes # 0.4 Eosinophils # 0.0 Basophils # 0.0 Nucleated Red Blood Cells # 0.0 Sodium Level 134 L Potassium Level 4.2 Chloride Level 98 Carbon Dioxide Level 28 Anion Gap 12 Blood Urea Nitrogen 32 H Creatinine 0.78 Glucose Level 115 Calcium Level 8.4 Medications Medications Current Medications Alprazolam (Xanax) 0.5 mg Q8H PRN GTB ANXIETY Last administered on 04/21/17 00:22; Admin Dose 0.5 MG; Start 04/13/17 at 15:30 Amiodarone HCl (Cordarone) 200 mg DAILY GTB Last administered on 04/21/17 09: 23; Admin Dose 200 MG; Start 04/14/17 at 09:00 Aspirin (Halfprin) 81 mg DAILY PO Last administered on 04/21/17 09:24; Admin Dose 81 MG; Start 04/14/17 at 09:00 Atorvastatin Calcium (Lipitor) 40 mg QHS GTB Last administered on 04/20/17 21 :37; Admin Dose 40 MG; Start 04/13/17 at 21:00 Carvedilol (Coreg) 6.25 mg BID GTB Last administered on 04/21/17 09:23; Admin Dose 6.25 MG; Start 04/13/17 at 21:00 Losartan Potassium (Cozaar) 50 mg DAILY GTB Last administered on 04/21/17 09: 24; Admin Dose 50 MG; Start 04/14/17 at 09:00 Multivitamins Therapeutic (Theragran) 1 tab DAILY GTB Last administered on 09:24; Admin Dose 1 TAB; Start 04/14/17 at 09:00 Quetiapine Fumarate (Seroquel) 25 mg HS GTB Last administered on 04/20/17 21: 37; Admin Dose 25 MG; Start 04/13/17 at 21:00 Lactobacillus Acidophilus/ Rhamnosus (Culturelle) 1 cap TID PO Last administered on 04/21/17 09:23; Admin Dose 1 CAP; Start 04/13/17 at 21:00 Ondansetron HCl (Zofran Inj) 4 mg Q4H PRN IV NAUSEA AND/OR VOMITING; Start 04/13/17 at 15:30 Acetaminophen (Tylenol Tab) 650 mg Q6H PRN PO PAIN LEVEL 1-3 OR FEVER Last administered on 04/20/17 17:05; Admin Dose 650 MG; Start 04/13/17 at 15:30 Ferrous Sulfate (Slow Fe) 142 mg BID PO Last administered on 04/21/17 09:23; Admin Dose 142 MG; Start 04/14/17 at 21:00 Ascorbic Acid 500 mg 500 mg BID PO Last administered on 04/21/17 09:24; Admin Dose 500 MG; Start 04/14/17 at 21:00 Dextrose/Sodium Chloride (D5-1/2ns) 1,000 ml @ 40 mls/hr Q24H IV Last administered on 04/15/17 16:14; Admin Dose 40 MLS/HR; Start 04/14/17 at 23:30 Pantoprazole (Protonix Iv) 40 mg BID@06,18 IV Last administered on 04/21/17 17:05; Admin Dose 40 MG; Start 04/16/17 at 18:00 Morphine Sulfate (morphine) 2 mg Q6H PRN IV PAIN LEVEL 6-10 Last administered on 04/20/17 13:34; Admin Dose 2 MG; Start 04/16/17 at 10:00 Lorazepam (Ativan) 0.5 mg Q6H PRN IV ANXIETY Last administered on 04/19/17 11: 54; Admin Dose 0.5 MG; Start 04/16/17 at 13:00 Hydralazine HCl 10 mg 10 mg Q4H PRN IV sbp>160; Start 04/16/17 at 14:30 Colistimethate Sodium 75 mg/ Sodium Chloride 100 ml @ 200 mls/hr Q12 IVPB Last administered on 04/21/17 09:25; Admin Dose 200 MLS/HR; Start 04/16/17 at 21:00 Linezolid (Zyvox 600mg/D5W (Pmx)) 300 ml @ 300 mls/hr Q12 IVPB Last administered on 04/21/17 09:24; Admin Dose 300 MLS/HR; Start 04/17/17 at 11:30 Methylprednisolone Sodium Succinate (Solu-Medrol) 40 mg Q12 IV Last administered on 04/21/17 09:23; Admin Dose 40 MG; Start 04/17/17 at 21:00 Furosemide (Lasix) 20 mg DAILY@06 GTB Last administered on 04/21/17 06:06; Admin Dose 20 MG; Start 04/19/17 at 06:00 PERRY TRAN MD Apr 21, 2017 17:07
[2017-04-21] MEDS: morphine 2 MG INJ IV PRN (19:48)
[2017-04-21] MEDS: QUETIAPINE 25 MG TAB GTB SCH (20:50)
[2017-04-21] MEDS: ATORVASTATIN 40 MG TAB GTB SCH (20:51)
[2017-04-22] VITALS (21 sets, daily range): BP systolic 106–189; BP diastolic 7–83; PULSE 51–88; RESP 16–61
[2017-04-22] MEDS: COLISTIMETHATE 75 MG in SOD CHLORIDE 0.9% 100 ML IVPB SCH ×2 (03:00→09:55)
[2017-04-22] MEDS: PANTOPRAZOLE 40 MG INJ IV SCH ×2 (05:47→17:14)
[2017-04-22] MEDS: LEVOTHYROXINE 100 MCG TAB GTB SCH (05:48)
[2017-04-22] MEDS: FUROSEMIDE 20 MG TAB GTB SCH (05:49)
--- NOTE | 2017-04-22 07:06 | PN ---
DATE: 04/21/2017 SUBJECTIVE: The patient seen by me because of leaking G-tube, and despite good nursing maneuvers, t he patient continues to show evidence of a G-tube site leaking, which includes a lot of bile. She s eems to be enlarged at gastrostomy site. There is some evidence of infection noted as well in this area. CLINICAL IMPRESSION: Malfunctioning G-tube. Probably she has significant gastroparesis and unable to empty all the gastric contents into the duodenum, hence at this time, I will consider the possibi lity of changing the G-tube to a transgastric jejunostomy tube placement. PHYSICAL EXAMINATION: The patient is alert. She has a tracheostomy. PLAN: We will proceed with PEG, to change G-tube to J-tube. Dictated By: ARMIN PHILIP MD NC/NTS Conf#: [id number] DID#: [id number] CC: ABE GALLOWAY MD; OLE DAO MD;*End*
[2017-04-22] MEDS: MULTIVITAMINS THERAPEUTIC TAB GTB SCH (08:38)
[2017-04-22] MEDS: AMIODARONE 200 MG TAB GTB SCH (08:38)
[2017-04-22] MEDS: LOSARTAN 50 MG TAB GTB SCH (08:38)
[2017-04-22] MEDS: METHYLPREDNISOLONE 40 MG INJ IV SCH ×2 (08:38→21:01)
[2017-04-22] MEDS: LINEZOLID 600 MG/D5W (PMX) 300 ML IVPB SCH ×2 (08:39→21:01)
[2017-04-22] MEDS: morphine 2 MG INJ IV PRN ×2 (08:45→21:01)
[2017-04-22] MEDS: FERROUS SULFATE (SR) 142 MG TAB PO SCH ×2 (08:50→21:01)
[2017-04-22] MEDS: ASPIRIN (EC) 81 MG TAB PO SCH (08:50)
[2017-04-22] MEDS: ASCORBIC ACID 500 MG TAB PO SCH ×2 (08:50→21:02)
[2017-04-22] MEDS: LACTOBACILLUS RHAMNOSUS CAP PO SCH ×3 (08:50→21:02)
[2017-04-22] MEDS: ALBUTEROL/IPRATROPIUM (NEB) 3 ML AMP INH SCH ×4 (09:48→21:13)
--- NOTE | 2017-04-22 10:28 | CONS ---
Date/Time of Note Date/Time of Note DATE: 04/22/17 TIME: 10:26 Assessment/Plan Assessment/Plan Chief Complaint/Hosp Course Consultation dictated #[id number]. Continue current treatment. Problems: Additional Assessment/Plan Assessment and recommendations; 1. Patient admitted with shortness of breath due to CHF exacerbation and possibly superimposed pneumonia. 2. Significant underlying interstitial lung disease. 3. History of diaphragmatic hernia repair with persistent hiatal hernia. 4. UTI due to multiple organisms. Patient currently on appropriate broad- spectrum antibiotic coverage. 5. Chronic respiratory failure, patient however doing very well on T-piece. Continue current supportive care. Consultation Date/Type/Reason Admit Date/Time Apr 13, 2017 at 13:23 Initial Consult Date 04/15/17 Type of Consultation: Pulmonary 24 HR Interval Summary Free Text/Dictation Patient's condition is stable. Remains awake and alert. Denies any shortness of breath. Complains of scant cough with very minimal sputum production. General exam; elderly woman, awake alert, currently in no distress. Exam/Review of Systems Vital Signs Vitals Vital Signs Date Time Temp Pulse Resp B/P Pulse Ox O2 Delivery O2 Flow Rate FiO2 04/22/17 10:00 86 119/70 04/22/17 09:51 20 96 Aerosol 5.0 28 04/22/17 08:17 98.0 Intake and Output 04/21/17 04/21/17 04/22/17 14:59 22:59 06:59 Intake Total 800 ml 100 ml Balance 800 ml 100 ml Exam HEENT exam; supple neck, no JVD. No lymphadenopathy. Midline trachea. No thyromegaly. Tracheostomy in place attached to T-piece. Patient has a multiple carious teeth. Chest examination; diminished but clear breath sounds. S1-S2 audible, no murmurs. Regular rhythm. Abdomen exam; soft, nontender. No organomegaly. G-tube in place. Bowel sounds audible. Extremity exam; no edema. Patient has a multiple ecchymosis. INVESTIGATOR exam; no focal deficit. Results Result Diagram: 04/21/17 1518 04/21/17 1518 Results 24 hrs Laboratory Tests Test 04/21/17 15:18 White Blood Count 13.7 #H Red Blood Count 3.52 L Hemoglobin 10.4 L Hematocrit 32.2 L Mean Corpuscular Volume 91.5 Mean Corpuscular Hemoglobin 29.5 Mean Corpuscular Hemoglobin Concent 32.3 Red Cell Distribution Width 17.2 H Platelet Count 319 # Mean Platelet Volume 10.9 H Neutrophils % 93.6 H Lymphocytes % 2.9 L Monocytes % 2.8 Eosinophils % 0.0 Basophils % 0.1 Nucleated Red Blood Cells % 0.0 Neutrophils # 12.8 H Lymphocytes # 0.4 L Monocytes # 0.4 Eosinophils # 0.0 Basophils # 0.0 Nucleated Red Blood Cells # 0.0 Sodium Level 134 L Potassium Level 4.2 Chloride Level 98 Carbon Dioxide Level 28 Anion Gap 12 Blood Urea Nitrogen 32 H Creatinine 0.78 Glucose Level 115 Calcium Level 8.4 Medications Medications Current Medications Alprazolam (Xanax) 0.5 mg Q8H PRN GTB ANXIETY Last administered on 04/21/17 00:22; Admin Dose 0.5 MG; Start 04/13/17 at 15:30 Amiodarone HCl (Cordarone) 200 mg DAILY GTB Last administered on 04/21/17 09: 23; Admin Dose 200 MG; Start 04/14/17 at 09:00 Aspirin (Halfprin) 81 mg DAILY PO Last administered on 04/21/17 09:24; Admin Dose 81 MG; Start 04/14/17 at 09:00 Atorvastatin Calcium (Lipitor) 40 mg QHS GTB Last administered on 04/21/17 20 :51; Admin Dose 40 MG; Start 04/13/17 at 21:00 Carvedilol (Coreg) 6.25 mg BID GTB Last administered on 04/21/17 20:50; Admin Dose 6.25 MG; Start 04/13/17 at 21:00 Losartan Potassium (Cozaar) 50 mg DAILY GTB Last administered on 04/21/17 09: 24; Admin Dose 50 MG; Start 04/14/17 at 09:00 Multivitamins Therapeutic (Theragran) 1 tab DAILY GTB Last administered on 09:24; Admin Dose 1 TAB; Start 04/14/17 at 09:00 Quetiapine Fumarate (Seroquel) 25 mg HS GTB Last administered on 04/21/17 20: 50; Admin Dose 25 MG; Start 04/13/17 at 21:00 Lactobacillus Acidophilus/ Rhamnosus (Culturelle) 1 cap TID PO Last administered on 04/21/17 20:50; Admin Dose 1 CAP; Start 04/13/17 at 21:00 Ondansetron HCl (Zofran Inj) 4 mg Q4H PRN IV NAUSEA AND/OR VOMITING; Start 04/13/17 at 15:30 Acetaminophen (Tylenol Tab) 650 mg Q6H PRN PO PAIN LEVEL 1-3 OR FEVER Last administered on 04/20/17 17:05; Admin Dose 650 MG; Start 04/13/17 at 15:30 Ferrous Sulfate (Slow Fe) 142 mg BID PO Last administered on 04/21/17 20:51; Admin Dose 142 MG; Start 04/14/17 at 21:00 Ascorbic Acid 500 mg 500 mg BID PO Last administered on 04/21/17 20:50; Admin Dose 500 MG; Start 04/14/17 at 21:00 Dextrose/Sodium Chloride (D5-1/2ns) 1,000 ml @ 40 mls/hr Q24H IV Last administered on 04/15/17 16:14; Admin Dose 40 MLS/HR; Start 04/14/17 at 23:30 Pantoprazole (Protonix Iv) 40 mg BID@06,18 IV Last administered on 04/22/17 05:47; Admin Dose 40 MG; Start 04/16/17 at 18:00 Morphine Sulfate (morphine) 2 mg Q6H PRN IV PAIN LEVEL 6-10 Last administered on 04/22/17 08:45; Admin Dose 2 MG; Start 04/16/17 at 10:00 Lorazepam (Ativan) 0.5 mg Q6H PRN IV ANXIETY Last administered on 04/19/17 11: 54; Admin Dose 0.5 MG; Start 04/16/17 at 13:00 Hydralazine HCl 10 mg 10 mg Q4H PRN IV sbp>160 Last administered on 04/22/17 08:39; Admin Dose 10 MG; Start 04/16/17 at 14:30 Colistimethate Sodium 75 mg/ Sodium Chloride 100 ml @ 200 mls/hr Q12 IVPB Last administered on 04/22/17 09:55; Admin Dose 200 MLS/HR; Start 04/16/17 at 21:00 Linezolid (Zyvox 600mg/D5W (Pmx)) 300 ml @ 300 mls/hr Q12 IVPB Last administered on 04/22/17 08:39; Admin Dose 300 MLS/HR; Start 04/17/17 at 11:30 Methylprednisolone Sodium Succinate (Solu-Medrol) 40 mg Q12 IV Last administered on 04/22/17 08:38; Admin Dose 40 MG; Start 04/17/17 at 21:00 Furosemide (Lasix) 20 mg DAILY@06 GTB Last administered on 04/22/17 05:49; Admin Dose 20 MG; Start 04/19/17 at 06:00 ALLISON DONOHUE Apr 22, 2017 10:28
--- NOTE | 2017-04-22 12:48 | OPPN ---
Date/Time of Note Date/Time of Note DATE: 04/22/17 TIME: 12:47 Proc Note GI Procedure Date 04/22/17 Indication: treatment Pre-procedure Diagnosis g ostomy leak Post-procedure Diagnosis same Procedure Performed: Endoscopy Surgeon see signature line Gold Marker none Anesthesia Type: MAC Anesthesiologist: JULIETTE BONILLA MD Tourniquet Time none EBL none Transfusion required none Biopsy 1: none Grafts/Implants none Tubes/Drains none Complication(s) none Procedure Description under mac g tube changed to g j tube ARMIN PHILIP MD Apr 22, 2017 12:48
--- NOTE | 2017-04-22 15:11 | CONS ---
Date/Time of Note Date/Time of Note DATE: 04/22/17 TIME: 15:10 Assessment/Plan Assessment/Plan Chief Complaint/Hosp Course SUBJECTIVE: No acute events, no fevers, looks comfortable IN-DWELLINGS: Trach, PEG. MICROBIOLOGY: Urine culture growing MDR Klebsiella pneumoniae and VRE. Antibiotics: Zyvox, colistin DIAGNOSTICS: CT of the abdomen and pelvis on admission revealed bilateral pleural effusion with bilateral lower lobe consolidation, pneumonia not excluded , small loculated inferior left pleural effusion, questionable small empyema, mild perihepatic ascites, no evidence of bowel obstruction, no definite intra- abdominal focal fluid collections, a percutaneous G-tube in place, a large hiatal hernia. PHYSICAL EXAMINATION: GENERAL: Fragile, elderly woman who is in no distress. HEENT: Head atraumatic, normocephalic. NECK: Supple. CHEST: Rise symmetrical. Breath sounds with scattered rhonchi. HEART: S1, S2. ABDOMEN: Soft, bowel tones present. EXTREMITIES: With trace edema. ASSESSMENT: 1. Systemic inflammatory response syndrome. 2. Multidrug resistant polymicrobial urinary tract infection. 3. G-tube malfunction. 4. Interstitial lung disease. 5. Mild pulmonary edema. 6. Anemia and thrombocytosis PLAN: The patient remains stable. Completing antibiotics, GI recommendations noted, pending JT. Discussed with staff Problems: Consultation Date/Type/Reason Admit Date/Time Apr 13, 2017 at 13:23 Initial Consult Date 04/15/17 Type of Consultation: id Exam/Review of Systems Vital Signs Vitals Vital Signs Date Time Temp Pulse Resp B/P Pulse Ox O2 Delivery O2 Flow Rate FiO2 04/22/17 14:17 6.0 04/22/17 14:17 98.8 78 20 122/69 100 Trach Collar 04/22/17 13:21 28 Intake and Output 04/21/17 04/21/17 04/22/17 15:00 23:00 07:00 Intake Total 800 ml 100 ml Balance 800 ml 100 ml Results Result Diagram: 04/21/17 1518 04/21/17 1518 Results 24 hrs Laboratory Tests Test 04/21/17 15:18 White Blood Count 13.7 #H Red Blood Count 3.52 L Hemoglobin 10.4 L Hematocrit 32.2 L Mean Corpuscular Volume 91.5 Mean Corpuscular Hemoglobin 29.5 Mean Corpuscular Hemoglobin Concent 32.3 Red Cell Distribution Width 17.2 H Platelet Count 319 # Mean Platelet Volume 10.9 H Neutrophils % 93.6 H Lymphocytes % 2.9 L Monocytes % 2.8 Eosinophils % 0.0 Basophils % 0.1 Nucleated Red Blood Cells % 0.0 Neutrophils # 12.8 H Lymphocytes # 0.4 L Monocytes # 0.4 Eosinophils # 0.0 Basophils # 0.0 Nucleated Red Blood Cells # 0.0 Sodium Level 134 L Potassium Level 4.2 Chloride Level 98 Carbon Dioxide Level 28 Anion Gap 12 Blood Urea Nitrogen 32 H Creatinine 0.78 Glucose Level 115 Calcium Level 8.4 Medications Medications Current Medications Alprazolam (Xanax) 0.5 mg Q8H PRN GTB ANXIETY Last administered on 04/21/17 00:22; Admin Dose 0.5 MG; Start 04/13/17 at 15:30 Amiodarone HCl (Cordarone) 200 mg DAILY GTB Last administered on 04/21/17 09: 23; Admin Dose 200 MG; Start 04/14/17 at 09:00 Aspirin (Halfprin) 81 mg DAILY PO Last administered on 04/21/17 09:24; Admin Dose 81 MG; Start 04/14/17 at 09:00 Atorvastatin Calcium (Lipitor) 40 mg QHS GTB Last administered on 04/21/17 20 :51; Admin Dose 40 MG; Start 04/13/17 at 21:00 Carvedilol (Coreg) 6.25 mg BID GTB Last administered on 04/21/17 20:50; Admin Dose 6.25 MG; Start 04/13/17 at 21:00 Losartan Potassium (Cozaar) 50 mg DAILY GTB Last administered on 04/21/17 09: 24; Admin Dose 50 MG; Start 04/14/17 at 09:00 Multivitamins Therapeutic (Theragran) 1 tab DAILY GTB Last administered on 09:24; Admin Dose 1 TAB; Start 04/14/17 at 09:00 Quetiapine Fumarate (Seroquel) 25 mg HS GTB Last administered on 04/21/17 20: 50; Admin Dose 25 MG; Start 04/13/17 at 21:00 Lactobacillus Acidophilus/ Rhamnosus (Culturelle) 1 cap TID PO Last administered on 04/21/17 20:50; Admin Dose 1 CAP; Start 04/13/17 at 21:00 Ondansetron HCl (Zofran Inj) 4 mg Q4H PRN IV NAUSEA AND/OR VOMITING; Start 04/13/17 at 15:30 Acetaminophen (Tylenol Tab) 650 mg Q6H PRN PO PAIN LEVEL 1-3 OR FEVER Last administered on 04/20/17 17:05; Admin Dose 650 MG; Start 04/13/17 at 15:30 Ferrous Sulfate (Slow Fe) 142 mg BID PO Last administered on 04/21/17 20:51; Admin Dose 142 MG; Start 04/14/17 at 21:00 Ascorbic Acid (Vitamin C) 500 mg BID PO Last administered on 04/21/17 20:50; Admin Dose 500 MG; Start 04/14/17 at 21:00 Pantoprazole (Protonix Iv) 40 mg BID@06,18 IV Last administered on 04/22/17 05:47; Admin Dose 40 MG; Start 04/16/17 at 18:00 Morphine Sulfate (morphine) 2 mg Q6H PRN IV PAIN LEVEL 6-10 Last administered on 04/22/17 08:45; Admin Dose 2 MG; Start 04/16/17 at 10:00 Lorazepam (Ativan) 0.5 mg Q6H PRN IV ANXIETY Last administered on 04/19/17 11: 54; Admin Dose 0.5 MG; Start 04/16/17 at 13:00 Hydralazine HCl 10 mg 10 mg Q4H PRN IV sbp>160 Last administered on 04/22/17 08:39; Admin Dose 10 MG; Start 04/16/17 at 14:30 Colistimethate Sodium 75 mg/ Sodium Chloride 100 ml @ 200 mls/hr Q12 IVPB Last administered on 04/22/17 09:55; Admin Dose 200 MLS/HR; Start 04/16/17 at 21:00 Linezolid (Zyvox 600mg/D5W (Pmx)) 300 ml @ 300 mls/hr Q12 IVPB Last administered on 04/22/17 08:39; Admin Dose 300 MLS/HR; Start 04/17/17 at 11:30 Methylprednisolone Sodium Succinate (Solu-Medrol) 40 mg Q12 IV Last administered on 04/22/17 08:38; Admin Dose 40 MG; Start 04/17/17 at 21:00 Furosemide (Lasix) 20 mg DAILY@06 GTB Last administered on 04/22/17t 05:49; Admin Dose 20 MG; Start 04/19/17 at 06:00 JAY JAY GIVENS NP Apr 22, 2017 15:11
--- NOTE | 2017-04-22 15:38 | PN ---
Date/Time of Note Date/Time of Note DATE: 04/22/17 TIME: 15:37 Assessment/Plan VTE Prophylaxis VTE Prophylaxis Intervention: LMWH Lines/Catheters IV Catheter Type (from Nrsg): PICC Line Central line still needed: Yes Urinary Cath still in place: No Reason Cath still needed: urinary retention Assessment/Plan Chief Complaint/Hosp Course 1. Peg tube dysfunction -PEG change to PEJ today per Dr Zhu Chronic and Acute respiratory distress secondary to low hgb and HF - likely 2/2 low hgb and component of heart failure -cardiology consulted, bnp elevated -Continue Lasix -spoke with physicians at [facility], patient has known small bilateral effusions and has chronic severe secretions, which is the main reason she can not be taken off the trach. 4. UTI secondary to multidrug-resistant Klebsiella and VRE -Colistin for Klebsiella -Zyvox for enterococcus -ID consultation obtained 5. Anemia secondary to chronic disease - FOBT negative 6. Dehydration -resolved -free water through the peg tube once fixed, IV for now, low due to volume overload 7. Hypertension - continue home medications when able 8. Hypothyroidism - Continue on home levothyroxine unable 10. Nondisplaced fractures of ribs -chronic, monitor 11. Thrombocytosis - most likely reactive Prophylaxis: SCDs DC planning:-Patient will need colistin and Zyvox upon DC to SNF likely tomorrow Problems: Subjective 24 Hr Interval Summary Free Text/Dictation PEJ placement today, then ready for dc Exam/Review of Systems Vital Signs Vitals Vital Signs Date Time Temp Pulse Resp B/P Pulse Ox O2 Delivery O2 Flow Rate FiO2 04/22/17 14:17 6.0 04/22/17 14:17 98.8 78 20 122/69 100 Trach Collar 04/22/17 13:21 28 Intake and Output 04/21/17 04/21/17 04/22/17 15:00 23:00 07:00 Intake Total 800 ml 100 ml Balance 800 ml 100 ml Exam Constitutional: alert, oriented, well developed Psych: nl mood/affect, no complaints Head: atraumatic, normocephalic Eyes: EOMI, PERRL, nl conjunctiva, nl lids, nl sclera ENMT: nl external ears & nose, nl lips & teeth, nl nasal mucosa & septum Neck: non-tender, supple Respiratory: clear to auscultation, normal air movement Cardiovascular: nl pulses, regular rate and rhythm Gastrointestinal: nl liver, spleen, non-tender, soft Musculoskeletal: nl extremities to inspection, nl gait and stance Extremities: normal pulses Neurological: YOU[employer]ITOR II-XII intact, nl mental status, nl speech, nl strength Skin: nl turgor, No rash or lesions Lymph: nl lymph nodes Results Result Diagram: 04/21/17 1518 04/21/17 1518 Medications Medications Current Medications Alprazolam (Xanax) 0.5 mg Q8H PRN GTB ANXIETY Last administered on 04/21/17 00:22; Admin Dose 0.5 MG; Start 04/13/17 at 15:30 Amiodarone HCl (Cordarone) 200 mg DAILY GTB Last administered on 04/21/17 09: 23; Admin Dose 200 MG; Start 04/14/17 at 09:00 Aspirin (Halfprin) 81 mg DAILY PO Last administered on 04/21/17 09:24; Admin Dose 81 MG; Start 04/14/17 at 09:00 Atorvastatin Calcium (Lipitor) 40 mg QHS GTB Last administered on 04/21/17 20 :51; Admin Dose 40 MG; Start 04/13/17 at 21:00 Carvedilol (Coreg) 6.25 mg BID GTB Last administered on 04/21/17 20:50; Admin Dose 6.25 MG; Start 04/13/17 at 21:00 Losartan Potassium (Cozaar) 50 mg DAILY GTB Last administered on 04/21/17 09: 24; Admin Dose 50 MG; Start 04/14/17 at 09:00 Multivitamins Therapeutic (Theragran) 1 tab DAILY GTB Last administered on 09:24; Admin Dose 1 TAB; Start 04/14/17 at 09:00 Quetiapine Fumarate (Seroquel) 25 mg HS GTB Last administered on 04/21/17 20: 50; Admin Dose 25 MG; Start 04/13/17 at 21:00 Lactobacillus Acidophilus/ Rhamnosus (Culturelle) 1 cap TID PO Last administered on 04/21/17 20:50; Admin Dose 1 CAP; Start 04/13/17 at 21:00 Ondansetron HCl (Zofran Inj) 4 mg Q4H PRN IV NAUSEA AND/OR VOMITING; Start 04/13/17 at 15:30 Acetaminophen (Tylenol Tab) 650 mg Q6H PRN PO PAIN LEVEL 1-3 OR FEVER Last administered on 04/20/17 17:05; Admin Dose 650 MG; Start 04/13/17 at 15:30 Ferrous Sulfate (Slow Fe) 142 mg BID PO Last administered on 04/21/17 20:51; Admin Dose 142 MG; Start 04/14/17 at 21:00 Ascorbic Acid (Vitamin C) 500 mg BID PO Last administered on 04/21/17 20:50; Admin Dose 500 MG; Start 04/14/17 at 21:00 Pantoprazole (Protonix Iv) 40 mg BID@18 IV Last administered on 04/22/17 05:47; Admin Dose 40 MG; Start 04/16/17 at 18:00 Morphine Sulfate (morphine) 2 mg Q6H PRN IV PAIN LEVEL 6-10 Last administered on 04/22/17 08:45; Admin Dose 2 MG; Start 04/16/17 at 10:00 Lorazepam (Ativan) 0.5 mg Q6H PRN IV ANXIETY Last administered on 04/19/17 11: 54; Admin Dose 0.5 MG; Start 04/16/17 at 13:00 Hydralazine HCl 10 mg 10 mg Q4H PRN IV sbp>160 Last administered on 04/22/17 08:39; Admin Dose 10 MG; Start 04/16/17 at 14:30 Colistimethate Sodium 75 mg/ Sodium Chloride 100 ml @ 200 mls/hr Q12 IVPB Last administered on 04/22/17 09:55; Admin Dose 200 MLS/HR; Start 04/16/17 at 21:00 Linezolid (Zyvox 600mg/D5W (Pmx)) 300 ml @ 300 mls/hr Q12 IVPB Last administered on 04/22/17 08:39; Admin Dose 300 MLS/HR; Start 04/17/17 at 11:30 Methylprednisolone Sodium Succinate (Solu-Medrol) 40 mg Q12 IV Last administered on 04/22/17 08:38; Admin Dose 40 MG; Start 04/17/17 at 21:00 Furosemide (Lasix) 20 mg DAILY@06 GTB Last administered on 04/22/17 05:49; Admin Dose 20 MG; Start 04/19/17 at 06:00 PERRY TRAN MD Apr 22, 2017 15:38
[2017-04-22] MEDS: ATORVASTATIN 40 MG TAB GTB SCH (21:01)
[2017-04-22] MEDS: QUETIAPINE 25 MG TAB GTB SCH (21:01)
[2017-04-22] MEDS: ALBUTEROL 0.083% (NEB) 2.5 MG/3 ML AMP HHN PRN (21:12)
--- NOTE | 2017-04-22 21:40 | OPR ---
DATE OF OPERATION: PROCEDURE: Esophagogastroduodenoscopy, placement of a percutaneous transgastric jejunostomy tube. PREOPERATIVE DIAGNOSIS: The patient has persistent gastric secretions and because of this, procedur e is performed to pass a gastric tube through the stomach and the pylorus into the jejunum. POSTOPERATIVE DIAGNOSIS: The patient has persistent gastric secretions and because of this, procedu re is performed to pass a gastric tube through the stomach and the pylorus into the jejunum. DESCRIPTION OF PROCEDURE: After the informed written consent was obtained, the patient was in a supine position. Intravenous anesthesia was given by anesthesiologist, Dr. Almendarez. When the pat ient became somnolent, the Olympus video upper endoscope was introduced into the oropharynx, then in to the esophagus, subsequently into the stomach. Old gastrostomy site was noted. The existing G-tu be was removed. Through this G-tube site, gastrojejunostomy tube was inserted and the thread of the gastrojejunostomy tube was grabbed with a Hemoclip, and the GJ tube was taken along with the endosc ope and tube was taken all the way to the third part of the duodenum, and the thread that was attached to the tip of the GJ tube, it was anchored to the mucosa. Two Hemoclips were applied and t he tube was found to be in the proper position. Scope was withdrawn and the balloon was inflated, t o stay in the stomach with saline, and the procedure was terminated. PLAN: Recommend start using the J port for feeding and the G port for suction. Dictated By: ARMIN HAYS/PORFIRIO Conf#: [id number] DID#: [id number] CC: OLE DAO MD; ABE GALLOWAY MD;*End*
[2017-04-23 02:28] VITALS: BP 113/56; RESP 16
[2017-04-23] MEDS: PANTOPRAZOLE 40 MG INJ IV SCH ×2 (05:55→18:54)
[2017-04-23] MEDS: LEVOTHYROXINE 100 MCG TAB GTB SCH (05:55)
[2017-04-23] MEDS: FUROSEMIDE 20 MG TAB GTB SCH (05:55)
[2017-04-23 06:40] LABS: CREATININE 0.97 mg/dl (0.44-1.00)
[2017-04-23 07:34] VITALS: BP 132/64; RESP 20
[2017-04-23] MEDS: ALBUTEROL/IPRATROPIUM (NEB) 3 ML AMP INH SCH ×4 (08:43→20:07)
[2017-04-23] MEDS: LOSARTAN 50 MG TAB GTB SCH (09:00)
[2017-04-23] MEDS: MULTIVITAMINS THERAPEUTIC TAB GTB SCH (09:55)
[2017-04-23] MEDS: ASCORBIC ACID 500 MG TAB PO SCH (09:55)
[2017-04-23] MEDS: LACTOBACILLUS RHAMNOSUS CAP PO SCH ×2 (09:55→13:21)
[2017-04-23] MEDS: ASPIRIN (EC) 81 MG TAB PO SCH (09:55)
[2017-04-23] MEDS: FERROUS SULFATE (SR) 142 MG TAB PO SCH (09:55)
[2017-04-23] MEDS: AMIODARONE 200 MG TAB GTB SCH (09:55)
[2017-04-23] MEDS: METHYLPREDNISOLONE 40 MG INJ IV SCH ×2 (09:56→21:43)
[2017-04-23] MEDS: LINEZOLID 600 MG/D5W (PMX) 300 ML IVPB SCH (10:00)
--- NOTE | 2017-04-23 10:18 | PDOCDIS ---
Discharge Instructions DIAGNOSIS Discharge Diagnosis UTI CONDITION Patient Condition: Fair HOME CARE INSTRUCTIONS: Special Diet: GTF FOLLOW UP/APPOINTMENTS Follow-up Plan Patient completed abx course and received PEJ tube for feeding PERRY TRAN MD Apr 23, 2017 10:18
[2017-04-23] MEDS: COLISTIMETHATE 75 MG in SOD CHLORIDE 0.9% 100 ML IVPB SCH (11:11)
--- NOTE | 2017-04-23 12:45 | CONS ---
Date/Time of Note Date/Time of Note DATE: 04/23/17 TIME: 12:44 Assessment/Plan Assessment/Plan Additional Assessment/Plan Acute blood loss anemia status post blood transfusion Acute decompensated diastolic congestive heart failure Chronic respiratory failure Paroxysmal atrial fibrillation, currently sinus Hypertension -Patient currently receiving medications via PEG. Blood pressure trend overall improved, continue maintenance Lasix as tolerated. Consultation Date/Type/Reason Admit Date/Time Apr 13, 2017 at 13:23 Initial Consult Date 04/15/17 Type of Consultation: cv 24 HR Interval Summary Free Text/Dictation Feeling better, denies shortness of breath currently Exam/Review of Systems Vital Signs Vitals Vital Signs Date Time Temp Pulse Resp B/P Pulse Ox O2 Delivery O2 Flow Rate FiO2 04/23/17 08:40 86 22 96 Aerosol 5.0 28 04/23/17 07:34 98.6 132/64 Intake and Output 04/22/17 04/22/17 04/23/17 14:59 22:59 06:59 Intake Total 400 ml 300 ml Balance 400 ml 300 ml Exam No apparent distress Constitutional: alert, oriented Head: normocephalic Neck: other (Tracheostomy) Respiratory: other (Coarse breath sounds bilaterally, no wheezing) Cardiovascular: other (S1-S2 heard), regular rate and rhythm Gastrointestinal: bowel sounds, non-tender, soft Extremities: edema Results Result Diagram: 04/21/17 1518 04/23/17 0430 Results 24 hrs Laboratory Tests Test 04/23/17 04:30 Blood Urea Nitrogen 31 H Creatinine 0.97 Medications Medications Current Medications Alprazolam (Xanax) 0.5 mg Q8H PRN GTB ANXIETY Last administered on 04/21/17 00:22; Admin Dose 0.5 MG; Start 04/13/17 at 15:30 Amiodarone HCl (Cordarone) 200 mg DAILY GTB Last administered on 04/23/17 09: 55; Admin Dose 200 MG; Start 04/14/17 at 09:00 Aspirin (Halfprin) 81 mg DAILY PO Last administered on 04/23/17 09:55; Admin Dose 81 MG; Start 04/14/17 at 09:00 Atorvastatin Calcium (Lipitor) 40 mg QHS GTB Last administered on 04/22/17 21 :01; Admin Dose 40 MG; Start 04/13/17 at 21:00 Carvedilol (Coreg) 6.25 mg BID GTB Last administered on 04/23/17 10:01; Admin Dose 6.25 MG; Start 04/13/17 at 21:00 Losartan Potassium (Cozaar) 50 mg DAILY GTB Last administered on 04/21/17 09: 24; Admin Dose 50 MG; Start 04/14/17 at 09:00 Multivitamins Therapeutic (Theragran) 1 tab DAILY GTB Last administered on 09:55; Admin Dose 1 TAB; Start 04/14/17 at 09:00 Quetiapine Fumarate (Seroquel) 25 mg HS GTB Last administered on 04/22/17 21: 01; Admin Dose 25 MG; Start 04/13/17 at 21:00 Lactobacillus Acidophilus/ Rhamnosus (Culturelle) 1 cap TID PO Last administered on 04/23/17 09:55; Admin Dose 1 CAP; Start 04/13/17 at 21:00 Ondansetron HCl (Zofran Inj) 4 mg Q4H PRN IV NAUSEA AND/OR VOMITING; Start 04/13/17 at 15:30 Acetaminophen (Tylenol Tab) 650 mg Q6H PRN PO PAIN LEVEL 1-3 OR FEVER Last administered on 04/20/17 17:05; Admin Dose 650 MG; Start 04/13/17 at 15:30 Ferrous Sulfate (Slow Fe) 142 mg BID PO Last administered on 04/23/17 09:55; Admin Dose 142 MG; Start 04/14/17 at 21:00 Ascorbic Acid (Vitamin C) 500 mg BID PO Last administered on 04/23/17 09:55; Admin Dose 500 MG; Start 04/14/17 at 21:00 Pantoprazole (Protonix Iv) 40 mg BID@06,18 IV Last administered on 04/23/17 05:55; Admin Dose 40 MG; Start 04/16/17 at 18:00 Morphine Sulfate (morphine) 2 mg Q6H PRN IV PAIN LEVEL 6-10 Last administered on 04/22/17 21:01; Admin Dose 2 MG; Start 04/16/17 at 10:00 Lorazepam (Ativan) 0.5 mg Q6H PRN IV ANXIETY Last administered on 04/19/17 11: 54; Admin Dose 0.5 MG; Start 04/16/17 at 13:00 Hydralazine HCl 10 mg 10 mg Q4H PRN IV sbp>160 Last administered on 04/22/17 08:39; Admin Dose 10 MG; Start 04/16/17 at 14:30 Colistimethate Sodium 75 mg/ Sodium Chloride 100 ml @ 200 mls/hr Q12 IVPB Last administered on 04/23/17 11:11; Admin Dose 200 MLS/HR; Start 04/16/17 at 21:00 Linezolid (Zyvox 600mg/D5W (Pmx)) 300 ml @ 300 mls/hr Q12 IVPB Last administered on 04/23/17 10:00; Admin Dose 300 MLS/HR; Start 04/17/17 at 11:30 Methylprednisolone Sodium Succinate (Solu-Medrol) 40 mg Q12 IV Last administered on 04/23/17 09:56; Admin Dose 40 MG; Start 04/17/17 at 21:00 Furosemide (Lasix) 20 mg DAILY@06 GTB Last administered on 04/23/17 05:55; Admin Dose 20 MG; Start 04/19/17 at 06:00 Ernesto Jon DO Apr 23, 2017 12:45
[2017-04-23] MEDS: LORAZEPAM 2 MG INJ IV PRN (15:17)
[2017-04-23 16:05] VITALS: BP 154/81; RESP 18
--- NOTE | 2017-04-23 16:28 | DS ---
Date/Time of Note Date/Time of Note DATE: 04/23/17 TIME: 16:26 Discharge Summary Admission/Discharge Info Admit Date/Time Apr 13, 2017 at 13:23 Discharge Date/Time Discharge Diagnosis UTI Patient Condition: Fair Hospital Course Patient found to have malfunctioning PEG tube, this was advanced to PEJ per Dr Ibarra as likely from inadequate gastric emptying Found to be in respiratory failure from fluid overload and pneumonia, treated with lasix and antibiotics Foudn to have UTI which was treated wtih colistin and zyvox per ID Home Meds Reported Medications Ipratropium-Albuterol (Ipratropium-Albuterol) 0.5-3 Mg/3 Ml Ampul.neb, 3 ML INHALATION Q6 Y for SHORTNESS OF BREATH, #30 VIAL 04/13/17 Lactobacillus Acidophilus* (Lactinex*) 1 Tab Chew, 1 TAB GTB TID, TAB 04/13/17 Levothyroxine Sodium* (Levoxyl*) 100 Mcg Tablet, 100 MCG GTB BEFORE BREAKFAST, # 30 TAB 04/13/17 Losartan Potassium* (Losartan Potassium*) 50 Mg Tablet, 50 MG GTB DAILY, TAB HOLD IF SBP < 110 OR HR < 60 04/13/17 Multivitamins* (Theragran*) 1 Tab Tab, 1 TAB GTB DAILY, TAB 04/13/17 Pantoprazole* (Protonix*) 40 Mg Tablet., 40 MG GTB BID, TAB 04/13/17 Quetiapine Fumarate* (Quetiapine Fumarate*) 25 Mg Tablet, 25 MG GTB HS, TAB 04/13/17 Sennosides* (Senna Lax*) 8.6 Mg Tablet, 2 TAB GTB QHS, TAB 04/13/17 Ondansetron (Zofran Odt) 4 Mg Tab.rapdis, 4 MG PO Q6 Y for NAUSEA AND/OR VOMITING 04/13/17 Furosemide* (Lasix* Liq) 40 Mg/4 Ml Solution, 20 MG IV* DAILY, #60 ML HOLD IF SBP<110 OR HR <60 USE WHILE ON IV ATB THEN CHANGE TO 40MG VIA G-TUBE 04/13/17 Sodium Phosphate,[place]-Dibasic (Enema Ready To Use) 133 Ml Enema, 133 ML RC EVERY 72 HOURS Y for CONSTIPATION, ENEMA 04/13/17 Ferrous Sulfate (Ferrous Sulfate) 220 Mg/5 Ml Solution, 220 MG PEGTUBE BID 04/13/17 Bisacodyl (Dulcolax) 10 Mg Supp.rect, 10 MG RC EVERY 48 HOURS Y for CONSTIPATION , SUPP.RECT 04/13/17 Carvedilol* (Carvedilol*) 6.25 Mg Tablet, 6.25 MG GTB BID, #60 TAB HOLD FOR SBP <110 OR HR <60 04/13/17 Atorvastatin* (Atorvastatin*) 40 Mg Tablet, 40 MG GTB QHS, #30 TAB 04/13/17 Albuterol Sulfate* (Albuterol Sulfate* Neb) 0.083%-3 Ml Neb, 1.25 MG NEB Q6 Y for WHEEZING AND SOB, #30 VIAL VIA TRACH 04/13/17 Alprazolam* (Alprazolam*) 0.5 Mg Tablet, 0.5 MG GTB Q8H Y for ANXIETY, TAB 04/13/17 Amiodarone Hcl* (Amiodarone Hcl*) 200 Mg Tablet, 200 MG GTB DAILY, #30 TAB 04/13/17 Aspirin (Low Dose Aspirin) 81 Mg Tablet., 81 MG GTB DAILY, #30 TAB 04/13/17 Follow-up Plan Patient completed abx course and received PEJ tube for feeding Primary Care Provider Brendan Irving Pending Labs Laboratory Tests Test 04/23/17 04:30 Blood Urea Nitrogen 31mg/dl (7-20) Creatinine 0.97mg/dl (0.44-1.00) PERRY TRAN MD Apr 23, 2017 16:28
--- NOTE | 2017-04-23 20:16 | CONS ---
Date/Time of Note Date/Time of Note DATE: 04/23/17 TIME: 20:13 Assessment/Plan Assessment/Plan Chief Complaint/Hosp Course SUBJECTIVE: No acute events, still with significant leak around new JT, no fevers IN-DWELLINGS: Trach, PEG. MICROBIOLOGY: Urine culture growing MDR Klebsiella pneumoniae and VRE. Antibiotics: Zyvox, colistin DIAGNOSTICS: CT of the abdomen and pelvis on admission revealed bilateral pleural effusion with bilateral lower lobe consolidation, pneumonia not excluded , small loculated inferior left pleural effusion, questionable small empyema, mild perihepatic ascites, no evidence of bowel obstruction, no definite intra- abdominal focal fluid collections, a percutaneous G-tube in place, a large hiatal hernia. PHYSICAL EXAMINATION: GENERAL: Fragile, elderly woman who is in no distress. HEENT: Head atraumatic, normocephalic. NECK: Supple. CHEST: Rise symmetrical. Breath sounds with scattered rhonchi. HEART: S1, S2. ABDOMEN: Soft, bowel tones present. EXTREMITIES: With trace edema. ASSESSMENT: 1. Systemic inflammatory response syndrome. 2. S/p Multidrug resistant polymicrobial urinary tract infection. 3. G-tub malfunction. 4. Interstitial lung disease. 5. Mild pulmonary edema. 6. Anemia and thrombocytosis PLAN: The patient remains unchanged, will dc abx, continue skin care around JT site, f/u GI rec-s Discussed with staff Problems: Consultation Date/Type/Reason Admit Date/Time Apr 13, 2017 at 13:23 Initial Consult Date 04/15/17 Type of Consultation: ID Exam/Review of Systems Vital Signs Vitals Vital Signs Date Time Temp Pulse Resp B/P Pulse Ox O2 Delivery O2 Flow Rate FiO2 04/23/17 16:45 78 18 98 Aerosol 5.0 28 04/23/17 16:05 98.8 154/81 Intake and Output 04/22/17 04/22/17 04/23/17 15:00 23:00 07:00 Intake Total 400 ml 300 ml Balance 400 ml 300 ml Results Result Diagram: 04/21/17 1518 04/23/17 0430 Results 24 hrs Laboratory Tests Test 04/23/17 04:30 Blood Urea Nitrogen 31 H Creatinine 0.97 Medications Medications Current Medications Alprazolam (Xanax) 0.5 mg Q8H PRN GTB ANXIETY Last administered on 04/21/17t 00:22; Admin Dose 0.5 MG; Start 04/13/17 at 15:30 Amiodarone HCl (Cordarone) 200 mg DAILY GTB Last administered on 04/23/17 09: 55; Admin Dose 200 MG; Start 04/14/17 at 09:00 Aspirin (Halfprin) 81 mg DAILY PO Last administered on 04/23/17 09:55; Admin Dose 81 MG; Start 04/14/17 at 09:00 Atorvastatin Calcium (Lipitor) 40 mg QHS GTB Last administered on 04/22/17 21 :01; Admin Dose 40 MG; Start 04/13/17 at 21:00 Carvedilol (Coreg) 6.25 mg BID GTB Last administered on 04/23/17 10:01; Admin Dose 6.25 MG; Start 04/13/17 at 21:00 Losartan Potassium (Cozaar) 50 mg DAILY GTB Last administered on 04/21/17 09: 24; Admin Dose 50 MG; Start 04/14/17 at 09:00 Multivitamins Therapeutic (Theragran) 1 tab DAILY GTB Last administered on 09:55; Admin Dose 1 TAB; Start 04/14/17 at 09:00 Quetiapine Fumarate (Seroquel) 25 mg HS GTB Last administered on 04/22/17 21: 01; Admin Dose 25 MG; Start 04/13/17 at 21:00 Lactobacillus Acidophilus/ Rhamnosus (Culturelle) 1 cap TID PO Last administered on 04/23/17 13:21; Admin Dose 1 CAP; Start 04/13/17 at 21:00 Ondansetron HCl (Zofran Inj) 4 mg Q4H PRN IV NAUSEA AND/OR VOMITING; Start 04/13/17 at 15:30 Acetaminophen (Tylenol Tab) 650 mg Q6H PRN PO PAIN LEVEL 1-3 OR FEVER Last administered on 04/20/17 17:05; Admin Dose 650 MG; Start 04/13/17 at 15:30 Ferrous Sulfate (Slow Fe) 142 mg BID PO Last administered on 04/23/17 09:55; Admin Dose 142 MG; Start 04/14/17 at 21:00 Ascorbic Acid (Vitamin C) 500 mg BID PO Last administered on 04/23/17 09:55; Admin Dose 500 MG; Start 04/14/17 at 21:00 Pantoprazole (Protonix Iv) 40 mg BID@06,18 IV Last administered on 04/23/17 18:54; Admin Dose 40 MG; Start 04/16/17 at 18:00 Morphine Sulfate (morphine) 2 mg Q6H PRN IV PAIN LEVEL 6-10 Last administered on 04/22/17 21:01; Admin Dose 2 MG; Start 04/16/17 at 10:00 Lorazepam (Ativan) 0.5 mg Q6H PRN IV ANXIETY Last administered on 04/23/17 15 :17; Admin Dose 0.5 MG; Start 04/16/17 at 13:00 Hydralazine HCl 10 mg 10 mg Q4H PRN IV sbp>160 Last administered on 04/22/17 08:39; Admin Dose 10 MG; Start 04/16/17 at 14:30 Colistimethate Sodium 75 mg/ Sodium Chloride 100 ml @ 200 mls/hr Q12 IVPB Last administered on 04/23/17 11:11; Admin Dose 200 MLS/HR; Start 04/16/17 at 21:00 Linezolid (Zyvox 600mg/D5W (Pmx)) 300 ml @ 300 mls/hr Q12 IVPB Last administered on 04/23/17 10:00; Admin Dose 300 MLS/HR; Start 04/17/17 at 11:30 Methylprednisolone Sodium Succinate (Solu-Medrol) 40 mg Q12 IV Last administered on 04/23/17 09:56; Admin Dose 40 MG; Start 04/17/17 at 21:00 Furosemide (Lasix) 20 mg DAILY@06 GTB Last administered on 04/23/17 05:55; Admin Dose 20 MG; Start 04/19/17 at 06:00 JAY JAY GIVENS NP Apr 23, 2017 20:16
[2017-04-23 20:41] VITALS: BP 127/66; RESP 19
[2017-04-23] MEDS: ASCORBIC ACID 500 MG TAB GTB SCH (21:42)
[2017-04-23] MEDS: LACTOBACILLUS RHAMNOSUS CAP GTB SCH (21:42)
[2017-04-23] MEDS: ATORVASTATIN 40 MG TAB GTB SCH (21:43)
[2017-04-23] MEDS: QUETIAPINE 25 MG TAB GTB SCH (21:43)
[2017-04-24 02:00] VITALS: BP 142/68; RESP 19
[2017-04-24] MEDS: FUROSEMIDE 20 MG TAB GTB SCH (05:59)
[2017-04-24] MEDS: PANTOPRAZOLE 40 MG INJ IV SCH ×2 (05:59→17:59)
[2017-04-24] MEDS: LEVOTHYROXINE 100 MCG TAB GTB SCH (06:00)
[2017-04-24 08:01] VITALS: BP 108/61; RESP 18
[2017-04-24] MEDS: ALBUTEROL/IPRATROPIUM (NEB) 3 ML AMP INH SCH ×4 (08:30→20:41)
[2017-04-24] MEDS ORDERED: ASCORBIC ACID 500 MG TAB GTB SCH ×2 (09:00)
[2017-04-24] MEDS ORDERED: LACTOBACILLUS RHAMNOSUS CAP GTB SCH (09:00)
[2017-04-24] MEDS ORDERED: FERROUS SULFATE 60 MG/ML 5ML CUP NGT SCH (09:00)
[2017-04-24] MEDS: ASPIRIN (EC) 81 MG TAB PO SCH (09:41)
[2017-04-24] MEDS: MULTIVITAMINS THERAPEUTIC TAB GTB SCH (09:41)
[2017-04-24] MEDS: AMIODARONE 200 MG TAB GTB SCH (09:41)
[2017-04-24] MEDS: METHYLPREDNISOLONE 40 MG INJ IV SCH (09:41)
[2017-04-24] MEDS: ASCORBIC ACID 500 MG TAB GTB SCH ×2 (09:42→20:42)
[2017-04-24] MEDS: LACTOBACILLUS RHAMNOSUS CAP GTB SCH ×3 (09:42→20:42)
[2017-04-24] MEDS: LOSARTAN 50 MG TAB GTB SCH (09:43)
[2017-04-24 14:11] VITALS: BP 148/71; RESP 18
--- NOTE | 2017-04-24 15:35 | CONS ---
Date/Time of Note Date/Time of Note DATE: 04/24/17 TIME: 15:34 Assessment/Plan Assessment/Plan Additional Assessment/Plan Acute blood loss anemia status post blood transfusion Acute decompensated diastolic congestive heart failure Chronic respiratory failure Paroxysmal atrial fibrillation, currently sinus Hypertension -Patient currently receiving medications via PEG. Blood pressure trend overall improved, continue maintenance Lasix as tolerated. Consultation Date/Type/Reason Admit Date/Time Apr 13, 2017 at 13:23 Initial Consult Date 04/15/17 Type of Consultation: cv 24 HR Interval Summary Free Text/Dictation Patient denies shortness of breath or chest pain Exam/Review of Systems Vital Signs Vitals Vital Signs Date Time Temp Pulse Resp B/P Pulse Ox O2 Delivery O2 Flow Rate FiO2 04/24/17 14:14 5.0 28 04/24/17 14:11 98.4 71 18 148/71 97 04/24/17 13:00 Aerosol Intake and Output 04/23/17 04/23/17 04/24/17 15:00 23:00 07:00 Intake Total 400 ml Balance 400 ml Exam Following commands, no apparent distress Constitutional: alert, frail Head: normocephalic Neck: other (Tracheostomy) Respiratory: other (Coarse breath sounds bilaterally, no wheezing) Cardiovascular: other (S1-S2 heard), regular rate and rhythm Gastrointestinal: bowel sounds, non-tender, soft Extremities: other (No significant edema) Results Result Diagram: 04/21/17 1518 04/23/17 0430 Medications Medications Current Medications Alprazolam (Xanax) 0.5 mg Q8H PRN GTB ANXIETY Last administered on 04/21/17 00:22; Admin Dose 0.5 MG; Start 04/13/17 at 15:30 Amiodarone HCl (Cordarone) 200 mg DAILY GTB Last administered on 04/24/17 09: 41; Admin Dose 200 MG; Start 04/14/17 at 09:00 Aspirin (Halfprin) 81 mg DAILY PO Last administered on 04/24/17 09:41; Admin Dose 81 MG; Start 04/14/17 at 09:00 Atorvastatin Calcium (Lipitor) 40 mg QHS GTB Last administered on 04/23/17 21 :43; Admin Dose 40 MG; Start 04/13/17 at 21:00 Carvedilol (Coreg) 6.25 mg BID GTB Last administered on 04/24/17 09:41; Admin Dose 6.25 MG; Start 04/13/17 at 21:00 Losartan Potassium (Cozaar) 50 mg DAILY GTB Last administered on 04/24/17 09: 43; Admin Dose 50 MG; Start 04/14/17 at 09:00 Multivitamins Therapeutic (Theragran) 1 tab DAILY GTB Last administered on 09:41; Admin Dose 1 TAB; Start 04/14/17 at 09:00 Quetiapine Fumarate (Seroquel) 25 mg HS GTB Last administered on 04/23/17 21: 43; Admin Dose 25 MG; Start 04/13/17 at 21:00 Ondansetron HCl (Zofran Inj) 4 mg Q4H PRN IV NAUSEA AND/OR VOMITING; Start 04/13/17 at 15:30 Acetaminophen (Tylenol Tab) 650 mg Q6H PRN PO PAIN LEVEL 1-3 OR FEVER Last administered on 04/20/17 17:05; Admin Dose 650 MG; Start 04/13/17 at 15:30 Pantoprazole (Protonix Iv) 40 mg BID@06,18 IV Last administered on 04/24/17 05:59; Admin Dose 40 MG; Start 04/16/17 at 18:00 Morphine Sulfate (morphine) 2 mg Q6H PRN IV PAIN LEVEL 6-10 Last administered on 04/22/17 21:01; Admin Dose 2 MG; Start 04/16/17 at 10:00 Lorazepam (Ativan) 0.5 mg Q6H PRN IV ANXIETY Last administered on 04/23/17 15 :17; Admin Dose 0.5 MG; Start 04/16/17 at 13:00 Hydralazine HCl (Apresoline) 10 mg Q4H PRN IV sbp>160 Last administered on 08:39; Admin Dose 10 MG; Start 04/16/17 at 14:30 Furosemide (Lasix) 20 mg DAILY@06 GTB Last administered on 04/24/17 05:59; Admin Dose 20 MG; Start 04/19/17 at 06:00 Ascorbic Acid (Vitamin C) 500 mg BID GTB Last administered on 04/24/17 09:42 ; Admin Dose 500 MG; Start 04/23/17 at 22:00 Lactobacillus Acidophilus/ Rhamnosus (Culturelle) 1 cap TID GTB Last administered on 04/24/17 14:57; Admin Dose 1 CAP; Start 04/23/17 at 22:00 Ferrous Sulfate (Feosol Liquid Cup) 300 mg DAILY NGT Last administered on 04/24 09:41; Admin Dose 300 MG; Start 04/24/17 at 09:00 Ernesto Jon DO Apr 24, 2017 15:35
--- NOTE | 2017-04-24 17:33 | PN ---
Date/Time of Note Date/Time of Note DATE: 04/24/17 TIME: 17:33 Assessment/Plan VTE Prophylaxis VTE Prophylaxis Intervention: other Lines/Catheters IV Catheter Type (from Nrs): PICC Line Central line still needed: No Urinary Cath still in place: No Assessment/Plan Chief Complaint/Hosp Course Patient found to have malfunctioning PEG tube, this was advanced to [facility] per Dr Ibarra as likely from inadequate gastric emptying Found to be in respiratory failure from fluid overload and pneumonia, treated with lasix and antibiotics Foudn to have UTI which was treated wtih colistin and zyvox per ID Problems: Subjective 24 Hr Interval Summary Free Text/Dictation No events Patient cleared for discharge to SNF Abx discontinued per [employer] Nera Exam/Review of Systems Vital Signs Vitals Vital Signs Date Time Temp Pulse Resp B/P Pulse Ox O2 Delivery O2 Flow Rate FiO2 04/24/17 16:30 90 22 99 Aerosol 5.0 28 04/24/17 14:11 98.4 148/71 Intake and Output 04/23/17 04/23/17 04/24/17 15:00 23:00 07:00 Intake Total 400 ml Balance 400 ml Results Result Diagram: 04/21/17 1518 04/23/17 0430 Medications Medications Current Medications Alprazolam (Xanax) 0.5 mg Q8H PRN GTB ANXIETY Last administered on 04/21/17 00:22; Admin Dose 0.5 MG; Start 04/13/17 at 15:30 Amiodarone HCl (Cordarone) 200 mg DAILY GTB Last administered on 04/24/17 09: 41; Admin Dose 200 MG; Start 04/14/17 at 09:00 Aspirin (Halfprin) 81 mg DAILY PO Last administered on 04/24/17 09:41; Admin Dose 81 MG; Start 04/14/17 at 09:00 Atorvastatin Calcium (Lipitor) 40 mg QHS GTB Last administered on 04/23/17 21 :43; Admin Dose 40 MG; Start 04/13/17 at 21:00 Carvedilol (Coreg) 6.25 mg BID GTB Last administered on 04/24/17 09:41; Admin Dose 6.25 MG; Start 04/13/17 at 21:00 Losartan Potassium (Cozaar) 50 mg DAILY GTB Last administered on 04/24/17 09: 43; Admin Dose 50 MG; Start 04/14/17 at 09:00 Multivitamins Therapeutic (Theragran) 1 tab DAILY GTB Last administered on 09:41; Admin Dose 1 TAB; Start 04/14/17 at 09:00 Quetiapine Fumarate (Seroquel) 25 mg HS GTB Last administered on 04/23/17 21: 43; Admin Dose 25 MG; Start 04/13/17 at 21:00 Ondansetron HCl (Zofran Inj) 4 mg Q4H PRN IV NAUSEA AND/OR VOMITING; Start 04/13/17 at 15:30 Acetaminophen (Tylenol Tab) 650 mg Q6H PRN PO PAIN LEVEL 1-3 OR FEVER Last administered on 04/20/17 17:05; Admin Dose 650 MG; Start 04/13/17 at 15:30 Pantoprazole (Protonix Iv) 40 mg BID@06,18 IV Last administered on 04/24/17 05:59; Admin Dose 40 MG; Start 04/16/17 at 18:00 Morphine Sulfate (morphine) 2 mg Q6H PRN IV PAIN LEVEL 6-10 Last administered on 04/22/17 21:01; Admin Dose 2 MG; Start 04/16/17 at 10:00 Lorazepam (Ativan) 0.5 mg Q6H PRN IV ANXIETY Last administered on 04/23/17 15 :17; Admin Dose 0.5 MG; Start 04/16/17 at 13:00 Hydralazine HCl (Apresoline) 10 mg Q4H PRN IV sbp>160 Last administered on 08:39; Admin Dose 10 MG; Start 04/16/17 at 14:30 Furosemide (Lasix) 20 mg DAILY@06 GTB Last administered on 04/24/17 05:59; Admin Dose 20 MG; Start 04/19/17 at 06:00 Ascorbic Acid (Vitamin C) 500 mg BID GTB Last administered on 04/24/17 09:42 ; Admin Dose 500 MG; Start 04/23/17 at 22:00 Lactobacillus Acidophilus/ Rhamnosus (Culturelle) 1 cap TID GTB Last administered on 04/24/17 14:57; Admin Dose 1 CAP; Start 04/23/17 at 22:00 Ferrous Sulfate (Feosol Liquid Cup) 300 mg DAILY NGT Last administered on 04/24t 09:41; Admin Dose 300 MG; Start 04/24/17 at 09:00 PERRY TRAN MD Apr 24, 2017 17:33
[2017-04-24 19:30] VITALS: BP 127/63; RESP 18
[2017-04-24] MEDS: QUETIAPINE 25 MG TAB GTB SCH (20:42)
[2017-04-24] MEDS: ATORVASTATIN 40 MG TAB GTB SCH (20:42)
--- NOTE | 2017-04-24 22:14 | CONS ---
Date/Time of Note Date/Time of Note DATE: 04/24/17 TIME: 22:13 Assessment/Plan Assessment/Plan Chief Complaint/Hosp Course SUBJECTIVE: No acute events, no fevers, looks comfortable IN-DWELLINGS: Trach, PEG. PHYSICAL EXAMINATION: GENERAL: Fragile, elderly woman who is in no distress. HEENT: Head atraumatic, normocephalic. NECK: Supple. CHEST: Rise symmetrical. Breath sounds with scattered rhonchi. HEART: S1, S2. ABDOMEN: Soft, bowel tones present. EXTREMITIES: With trace edema. ASSESSMENT: 1. Systemic inflammatory response syndrome. 2. S/p Multidrug resistant polymicrobial urinary tract infection. 3. GT malfunction==> replaced. 4. Interstitial lung disease. 5. Mild pulmonary edema. 6. Anemia and thrombocytosis PLAN: The patient remains unchanged, stable off abx, continue skin care around JT site, f/u GI rec-s Discussed with staff Problems: Consultation Date/Type/Reason Admit Date/Time Apr 13, 2017 at 13:23 Initial Consult Date 04/15/17 Type of Consultation: id Exam/Review of Systems Vital Signs Vitals Vital Signs Date Time Temp Pulse Resp B/P Pulse Ox O2 Delivery O2 Flow Rate FiO2 04/24/17 20:43 5.0 28 04/24/17 20:41 85 22 98 Aerosol 04/24/17 19:30 98.3 127/63 Intake and Output 04/23/17 04/23/17 04/24/17 15:00 23:00 07:00 Intake Total 400 ml Balance 400 ml Results Result Diagram: 04/21/17 1518 04/23/17 0430 JAY JAY GIVENS NP Apr 24, 2017 22:14
== END 2017-04-24 21:30 | DRG 291 ==
LOC: E/R 11:35 → MS4 13:23 → PP2 04-22 18:20
PROVIDERS: ADMIT Internal Medicine; ATTEND Internal Medicine
PROC: 30233N1 Transfusion of Nonautologous Red Blood Cells into Peripheral Vein, Percutaneous Approach (ICD-10-PCS; 2017-04-14)
PROC: 0DHA3UZ Insertion of Feeding Device into Jejunum, Percutaneous Approach (ICD-10-PCS; principal; 2017-04-22 12:00)
DX: I11.0 Hypertensive heart disease with heart failure (principal); J18.9 Pneumonia, unspecified organism; J84.9 Interstitial pulmonary disease, unspecified; J96.10 Chronic respiratory failure, unspecified whether with hypoxia or hypercapnia; Z93.0 Tracheostomy status; R65.10 Systemic inflammatory response syndrome (SIRS) of non-infectious origin without acute organ dysfunction; K92.2 Gastrointestinal hemorrhage, unspecified; N39.0 Urinary tract infection, site not specified; D62 Acute posthemorrhagic anemia; K94.23 Gastrostomy malfunction; I50.33 Acute on chronic diastolic (congestive) heart failure; E86.0 Dehydration; D63.8 Anemia in other chronic diseases classified elsewhere; I10 Essential (primary) hypertension; E03.9 Hypothyroidism, unspecified; J42 Unspecified chronic bronchitis; B96.1 Klebsiella pneumoniae [K. pneumoniae] as the cause of diseases classified elsewhere; B95.2 Enterococcus as the cause of diseases classified elsewhere; Z16.24 Resistance to multiple antibiotics; K31.84 Gastroparesis
CPT/HCPCS: 36430; 71010; 71260; 74150; 80048; 80053; 80069; 81001; 82270; 82565; 82728; 83540; 83735; 83880; 84520; 85018; 85025; 86850; 86900; 86901; 86920; 87070; 87081; 87086; 87205; 92526; 92610; 93005; 93306; 94640; 94644; 94664; 96374; 96375; J1940; C9113; J0295; J0360; J0456; J0696; J2060; J2270; J2920; J2930; J3370; J3480; J7030; J7042; P9016; Q9967